=== PATIENT | female | born 1980 | race Caucasian/White ===

== ENCOUNTER 2020-05-09 07:58 | Outpatient (REF) | payer BC, SELFPAY ==
[2020-05-09 09:16] LABS: MANUAL DIFF FLAG NO
[2020-05-09 09:33] LABS: Basophils Absolute Auto 0.1 X10*3/uL (0.0-0.2); Basophils Percent Auto 0.9 % (0-2); Eosinophils Absolute Auto 0.1 X10*3/uL (0.0-0.4); Eosinophils Percent Auto 1.3 % (0-4); Hematocrit 40.1 % (37-47); Hemoglobin 13.6 g/dl (12.0-16.0); Imm Gran Abs Auto 0.01 X10*3/uL (0.00-0.03); Imm Gran Pct Auto 0.2 % (0.0-0.4); Lymphocytes Absolute Auto 3.1 X10*3/uL (1.2-4.9); Lymphocytes Percent Auto 58.2 % (20-40); Mean Corpuscular HGB Conc 33.9 g/dl (31.0-35.0); Mean Corpuscular Volume 91.3 fL (80-98); Mean Platelet Volume 10.5 fL (9.4-12.3); Monocytes Absolute Auto 0.4 X10*3/uL (0.1-1.2); Neutrophils Absolute Auto 1.7 X10*3/uL (2.0-8.3); Neutrophils Percent Auto 32.4 % (45-73); Platelet Count 258 X10*3/uL (160-400); Red Blood Count 4.39 X10*6/uL (4.20-5.50); Red Cell Distribution Width 12.6 % (11.0-16.0); White Blood Count 5.3 X10*3/uL (4.8-10.8)
[2020-05-09 09:35] LABS: Blood Urea Nitrogen 19 mg/dL (9-16); Estimated Glomerular Filt Rate > 60
[2020-05-09 09:44] LABS: Alanine Aminotransferase 72 U/L (0-31); Albumin Level 4.4 g/dL (3.5-5.0); Alkaline Phosphatase 75 U/L (39-117); Anion Gap 12 (12-20); Aspartate Amino Transferase 35 U/L (5-31); Bilirubin Total 0.8 mg/dL (0.0-1.0); Blood Urea Nitrogen 20 mg/dL (9-16); Calcium 9.6 mg/dL (8.4-10.2); Carbon Dioxide 27 mmol/L (22-29); Chloride 105 mmol/L (96-108); Cholesterol 261 mg/dL; Estimated Glomerular Filt Rate > 60; Glucose Fasting 97 mg/dL (60-99); HDL Cholesterol 48 mg/dL; LDL Cholesterol Calculated 177 mg/dl; Potassium 4.9 mmol/l (3.3-5.1); Sodium 139 mmol/L (135-145); Total Protein 7.4 g/dL (6.5-8.0); Triglycerides 184 mg/dL
[2020-05-09 10:05] LABS: Folate 19.1 ng/mL (> or = 4.0); Vitamin B12 530 pg/mL (200-900)
[2020-05-13 13:22] LABS: Vitamin D 25-OH, D2 <4 ng/mL; Vitamin D 25-OH, D3 38 ng/mL; Vitamin D 25-OH, Total 38 ng/mL (30-100)
== END 2020-05-09 07:59 | disposition home or self-care (01) ==
LOC: HO.LAB 07:58
PROVIDERS: Absent Provider Internal Medicine; PCP Internal Medicine; Visit Provider Internal Medicine
DX: R53.82 Chronic fatigue, unspecified (principal); E04.2 Nontoxic multinodular goiter; E78.2 Mixed hyperlipidemia; E55.9 Vitamin D deficiency, unspecified; E28.39 Other primary ovarian failure
CPT/HCPCS: 36415; 80053; 80061; 82306; 82565; 82607; 82746; 84443; 84520; 85025

== ENCOUNTER → 2020-05-16 10:07 | Outpatient (BNVA) | payer BC, SELFPAY | PROVIDERS: Visit Provider Obstetrics & Gynecology | DX: Z76.89 Persons encountering health services in other specified circumstances (principal) ==

== ENCOUNTER → 2020-05-17 08:00 | Outpatient (BNVA) | payer BC, SELFPAY | PROVIDERS: PCP Internal Medicine; Visit Provider Internal Medicine | DX: Z76.89 Persons encountering health services in other specified circumstances (principal) ==

== ENCOUNTER 2020-07-03 08:54 | Outpatient (REF) | payer BC, SELFPAY ==
[2020-07-03 11:25] LABS: Hematocrit 38.4 % (37-47); Hemoglobin 12.9 g/dl (12.0-16.0); Mean Corpuscular HGB Conc 33.6 g/dl (31.0-35.0); Mean Corpuscular Hemoglobin 30.9 pg (27.0-33.0); Mean Corpuscular Volume 92.1 fL (80-98); Mean Platelet Volume 10.3 fL (9.4-12.3); Platelet Count 209 X10*3/uL (160-400); Red Blood Count 4.17 X10*6/uL (4.20-5.50); Red Cell Distribution Width 12.5 % (11.0-16.0); White Blood Count 7.3 X10*3/uL (4.8-10.8)
[2020-07-03 12:20] LABS: Ferritin 89 ng/mL (10-250)
[2020-07-03 12:26] LABS: Alanine Aminotransferase 34 U/L (0-31); Albumin Level 4.5 g/dL (3.5-5.0); Alkaline Phosphatase 78 U/L (39-117); Anion Gap 12 (12-20); Aspartate Amino Transferase 21 U/L (5-31); Bilirubin Total 0.6 mg/dL (0.0-1.0); Blood Urea Nitrogen 12 mg/dL (9-16); Calcium 9.7 mg/dL (8.4-10.2); Carbon Dioxide 29 mmol/L (22-29); Chloride 103 mmol/L (96-108); Estimated Glomerular Filt Rate > 60; Gamma Glutamyl Transpeptidase 25 U/L (7-33); Glucose Random 84 mg/dL (60-115); Iron 75 mcg/dL (30-160); Percent Iron Saturation 23 % (15-50); Potassium 4.8 mmol/l (3.3-5.1); Sodium 139 mmol/L (135-145); Total Iron Binding Capacity 325 mcg/dL (228-428); Total Protein 7.5 g/dL (6.5-8.0); Unsaturated Iron Binding 250 ug/dL
[2020-07-03 13:01] LABS: Erythrocyte Sedimentation Rate 16 MM/HR (0-20)
[2020-07-04 09:49] LABS: HBS Num1 89.82 mIU/mL (0-7.99); HBc Num1 0.07 S/CO (0.00-0.79); HBsAGNum1 0.22 S/CO (0.00-0.99); Hepatitis B Core Antibody Nonreactive (Nonreactive); Hepatitis B Surface Antigen Negative (Negative); ~Hepatitis B Surface Antibody REACTIVE (Nonreactive); ~Hepatitis C Antibody Nonreactive (Nonreactive)
[2020-07-04 12:42] LABS: Mitochondrial Antibodies NEGATIVE (NEGATIVE)
[2020-07-04 13:28] LABS: Anti Nuclear Antibody Screen NEGATIVE (NEGATIVE)
[2020-07-04 22:53] LABS: Transglutaminase IgA 1 U/mL
[2020-07-05 11:53] LABS: Alpha 1 Anti-trypsin 125 mg/dL (83-199); Ceruloplasmin 24 mg/dL (18-53)
[2020-07-07 13:02] LABS: Smooth Muscle Antibody <20 U (<20)
[2020-07-11 20:37] LABS: Aldolase 6.7 U/L (<=8.1)
== END 2020-07-03 08:55 | disposition home or self-care (01) ==
LOC: HO.LAB 08:54
PROVIDERS: Absent Provider Internal Medicine; PCP Internal Medicine; Visit Provider Internal Medicine Gastroenterology
DX: R74.01 Elevation of levels of liver transaminase levels (principal)
CPT/HCPCS: 36415; 80053; 82085; 82103; 82390; 82550; 82728; 82977; 83516; 83540; 85027; 85610; 85652; 86038; 86039; 86140; 86255; 86256; 86704; 86706; 86803; 87340; Q3014

== ENCOUNTER 2020-07-11 09:34 | Outpatient (REF) | payer BC, SELFPAY ==
--- NOTE | 2020-07-11 09:38 | US_ITS ---
EXAMINATION: US ABDOMEN LIMITED WITH LIVER ELASTOGRAPHY CLINICAL INFORMATION: Elevated liver function tests COMPARISON: Previous abdominal ultrasound September 2019 TECHNIQUE: Real-time imaging of the abdominal viscera. Noninvasive ultrasound liver fibrosis assessment is performed using Adriana ElastPQ point quantification shear wave elastography (pSWE) with a 5 MHz transducer. Multiple elastography samples are obtained. FINDINGS: PANCREAS: Normal. LIVER: Liver echotexture is increased. The liver is normal in size and contour. No focal lesion or intrahepatic biliary duct dilatation. The right lobe measures 12 cm in length. The left lobe measures 14 cm in length. The main portal vein is patent with appropriate hepatopedal flow. Shear wave elastography provides a median stiffness of 1.3 m/s (reference: normal median stiffness is 0.81 - 1.22 m/s). The IQR/median stiffness to assess sampling precision is 0.1 (reference: optimal IQR/median stiffness is under 0.3). GALLBLADDER: Normal. The gallbladder is physiologically distended without evidence of stones, sludge, polyps, wall thickening or pericholecystic fluid. COMMON BILE DUCT: Normal in caliber measuring 0.6 cm in diameter. RIGHT KIDNEY: Normal. No hydronephrosis. No renal calculi or focal parenchymal lesions. The kidney measures 8.8 cm in maximum dimension. FREE FLUID: There is trace ascites adjacent to the left lobe of the liver. US/US abdomen roman w elastography IMPRESSION: 1. Impression: Echogenic liver. Trace ascites. 2. Elastography: Metavir score F0 to F1 suggestive of normal to mild increased risk of developing liver fibrosis.
== END 2020-07-11 09:35 | disposition home or self-care (01) ==
LOC: HO.US 09:34
PROVIDERS: PCP Internal Medicine; Visit Provider Internal Medicine Gastroenterology
DX: R74.01 Elevation of levels of liver transaminase levels (principal)
CPT/HCPCS: 76705; 76981

== ENCOUNTER 2020-08-02 13:56 | Outpatient (REF) | payer BC, SELFPAY ==
--- NOTE | ~2020-08-02 | MM_ITS ---
EXAMINATION: BONE DENSITOMETRY CLINICAL INDICATION: Osteopenia. COMPARISON: Baseline BD dated 07/22/2018. TECHNIQUE: Using a [employer] DXA System (software version: 13.1) manufactured by [employer], dual-energy x-ray absorptiometry was performed of the lumbar spine and left hip. The images are of good technical quality. Summary results are attached. FINDINGS: AP SPINE L1-L4: Current: BMD 1.173 g/cm2, Z-score 0.1, T-score -0.1, normal, 3.1% decrease from baseline (<5% change is not significant). Baseline: BMD 1.211 g/cm2. LEFT FEMUR, NECK: Current: BMD 1.020 g/cm2, Z-score 0.5, T-score -0.1, normal. Baseline: BMD 1.074 g/cm2. LEFT FEMUR, TOTAL: Current: BMD 1.075 g/cm2, Z-score 0.9, T-score 0.5, normal, 4.0% decrease from baseline (<5% change is not significant). Baseline: BMD 1.120 g/cm2. IDENTIFIED RISK FACTORS: Early menopause, menopause, secondary osteoporosis. HISTORY OF FRACTURE: None listed. MEDICATIONS: Vitamin D. MM/XR DEXA axial skeleton IMPRESSION: 1. DIAGNOSIS: Normal bone density based on the lowest T-score value of -0.1 in the lumbar spine and femur neck applying World Health Organization criteria. 2. 10-YEAR FRACTURE RISK PREDICTION, FRAX: Major osteoporotic fracture (clinical spine, forearm, hip or shoulder) 1.1%. Hip fracture 0.0%. 3. Treatment Recommendations: NOF guidelines recommend consideration for treatment in postmenopausal women and men age 50 and older presenting with the following: -A hip or vertebral (clinical or morphometric) fracture. -T-score less than or equal to -2.5 at the femoral neck or spine after appropriate evaluation to exclude secondary causes. -Low bone mass at the hip or spine and a 10-year fracture probability by FRAX of greater than or equal to 3% for hip fracture or greater than or equal to 20% for major osteoporotic fracture based on the [place] adapted WHO algorithm. 4. Other Recommendations: All treatment decisions require clinical judgment and consideration of individual patient factors, including patient preferences, comorbidities, previous drug use, risk factors not captured in the FRAX model (e.g. frailty, falls, vitamin D deficiency, increased bone turnover, interval significant decline in bone density) and possible under or overestimation of fracture risk by FRAX. FUTURE SCAN RECOMMENDATION: People with diagnosed cases of osteoporosis or at high risk for fracture should have regular bone mineral density tests. For patients eligible for Medicare, routine testing is allowed once every 2 years. The testing frequency can be increased to one year for patients who have rapidly progressing disease, those who are receiving or discontinuing medical therapy to restore bone mass, or have additional risk factors.
--- NOTE | ~2020-08-02 | MM_ITS ---
EXAMINATION: MM SCREENING DIGITAL BREAST TOMOSYNTHESIS, BILATERAL CLINICAL INFORMATION: Screening. Asymptomatic. The lifetime risk of breast cancer based on the Tyrer-Cuzick Model is 8%. COMPARISON: Mammography: 07/28/2019, 07/22/2018 (baseline). TECHNIQUE: Digital breast tomosynthesis is performed in both the craniocaudal and mediolateral oblique views along with computer-aided detection (CAD). Synthesized 2D images are generated from the tomosynthesis. FINDINGS: There are scattered areas of fibroglandular density (ACR BI-RADS breast composition Category b). There is some fine punctate calcifications anterior periareolar upper outer left breast, possibly vascular. Patient will be recalled for additional magnification views. The remainder of the left breast is unremarkable with no interval mass or architectural abnormality. The right breast has macrolobulated nodule versus grouping of 3 nodules 6:00 retroareolar position 0.7 cm overall size. Patient will be recalled for additional ultrasound characterization. The remainder of the right breast is without significant change. Again, there are scattered punctate benign calcifications. MM/MM tomosynthesis screening BI IMPRESSION: 1. Left: Fine calcifications anterior breast, possibly vascular. 2. Right: Retroareolar nodule vs grouping of 3 small nodules overall under 1 cm. ASSESSMENT: BI-RADS 0: Incomplete - Need Additional Imaging Evaluation RECOMMENDATION: 1. Additional views of the left breast (magnification CC and magnification ML). 2. Targeted right breast ultrasound. 3. Radiology department staff will contact the patient for additional imaging. This patient's information was entered into a reminder system with a target due date for their next mammogram.
== END 2020-08-02 13:57 | disposition home or self-care (01) ==
LOC: HO.MAMMO 13:56
PROVIDERS: PCP Internal Medicine; Visit Provider Internal Medicine
DX: Z13.820 Encounter for screening for osteoporosis (principal); Z78.0 Asymptomatic menopausal state; M89.9 Disorder of bone, unspecified; Z79.899 Other long term (current) drug therapy; Z12.31 Encounter for screening mammogram for malignant neoplasm of breast
CPT/HCPCS: 77063; 77067; 77080

== ENCOUNTER 2020-08-09 14:18 | Outpatient (REF) | payer BC, SELFPAY ==
--- NOTE | ~2020-08-09 | US_ITS ---
EXAMINATION: MM DIAGNOSTIC DIGITAL MAMMOGRAPHY, LEFT US DIAGNOSTIC ULTRASOUND BREAST, RIGHT CLINICAL INFORMATION: Recall from screening for fine calcifications anterior left breast and retroareolar nodule right breast. COMPARISON: Mammography: 08/02/2020, 07/28/2019, 07/22/2018 (baseline). TECHNIQUE: Digital mammography is performed in the following views: Magnification CC, magnification ML. Ultrasound right breast is targeted to the retroareolar region. Grayscale imaging and color Doppler are performed without and with harmonics. FINDINGS: Mammography left: There are scattered areas of fibroglandular density (ACR BI-RADS breast composition Category b). There are punctate uniform round calcifications retroareolar left breast in retrospect likely chronic, similar to prior mammography since 2019. Finding is much better appreciated on current exam using magnification technique. Calcifications are considered probably benign and will be reassessed again in 6 months to include magnification views. Ultrasound right: There is small benign lobulated cyst 6:00 retroareolar right breast under 1 cm measuring approximately 0.6 x 0.5 x 0.4 cm. There is increased through-transmission of sound at real-time scanning and no associated color flow. This corresponds to finding on mammography and considered benign. There is no solid mass or duct ectasia or architectural abnormality. Results are discussed with the patient at time of visit. US/US breast RT limited IMPRESSION: 1. Left: Probable benign punctate calcifications retroareolar breast, in retrospect likely chronic finding. 2. Right: Small benign retroareolar cyst corresponding to finding on mammography. ASSESSMENT: BI-RADS 3: Probably Benign RECOMMENDATION: Diagnostic left mammography in 6 months. This patient's information was entered into a reminder system with a target due date for their next mammogram.
== END 2020-08-09 14:19 | disposition home or self-care (01) ==
LOC: HO.MAMMO 14:18
PROVIDERS: Visit Provider Obstetrics & Gynecology
DX: R92.1 Mammographic calcification found on diagnostic imaging of breast (principal); N63.10 Unspecified lump in the right breast, unspecified quadrant
CPT/HCPCS: 76642; 77065

== ENCOUNTER → 2020-08-15 10:34 | Outpatient (BNVA) | payer BC, SELFPAY | PROVIDERS: PCP Internal Medicine; Visit Provider Advanced Practice Midwife ==

== ENCOUNTER → 2020-09-20 13:19 | Outpatient (BNVA) | payer BC, SELFPAY | PROVIDERS: PCP Internal Medicine; Visit Provider Internal Medicine ==

== ENCOUNTER → 2020-09-21 09:20 | Outpatient (BNVA) | payer BC, SELFPAY | PROVIDERS: PCP Internal Medicine; Visit Provider Internal Medicine Gastroenterology ==

== ENCOUNTER → 2020-10-02 07:49 | Outpatient (BNVA) | payer BC, SELFPAY | PROVIDERS: PCP Internal Medicine; Visit Provider Obstetrics & Gynecology ==

== ENCOUNTER 2020-10-09 09:25 | Outpatient (REF) | payer BC, SELFPAY ==
[2020-10-09 12:09] LABS: Alanine Aminotransferase 37 U/L (0-31); Albumin Level 4.6 g/dL (3.5-5.0); Alkaline Phosphatase 70 U/L (39-117); Anion Gap 13 (12-20); Aspartate Amino Transferase 25 U/L (5-31); Bilirubin Direct 0.2 mg/dL (0.0-0.5); Bilirubin Total 0.8 mg/dL (0.0-1.0); Blood Urea Nitrogen 17 mg/dL (9-16); Calcium 10.2 mg/dL (8.4-10.2); Carbon Dioxide 30 mmol/L (22-29); Chloride 104 mmol/L (96-108); Cholesterol 248 mg/dL; Estimated Glomerular Filt Rate > 60; Glucose Fasting 86 mg/dL (60-99); HDL Cholesterol 47 mg/dL; LDL Cholesterol Calculated 164 mg/dl; Potassium 5.2 mmol/L (3.3-5.1); Sodium 142 mmol/L (135-145); Total Protein 7.4 g/dL (6.5-8.0); Triglycerides 186 mg/dL
[2020-10-09 12:35] LABS: Free T4 (Free Thyroxine) 0.68 ng/dL (0.71-1.85); Thyroid Stimulating Hormone 0.81 uIU/mL (0.32-4.0)
[2020-10-10 05:37] LABS: LDL Cholesterol Direct 151 mg/dL (<100)
[2020-10-19 15:57] LABS: Vitamin D 25-OH, D2 <4 ng/mL; Vitamin D 25-OH, D3 41 ng/mL; Vitamin D 25-OH, Total 41 ng/mL (30-100)
== END 2020-10-09 09:26 | disposition home or self-care (01) ==
LOC: HO.LAB 09:25
PROVIDERS: Internal Medicine; PCP Internal Medicine; Visit Provider Internal Medicine
DX: E78.5 Hyperlipidemia, unspecified (principal); E55.9 Vitamin D deficiency, unspecified; E04.2 Nontoxic multinodular goiter; R74.01 Elevation of levels of liver transaminase levels
CPT/HCPCS: 36415; 80053; 80061; 80076; 82248; 82306; 83721; 84439; 84443

== ENCOUNTER 2020-10-10 11:06 | Outpatient (REF) | payer BC, SELFPAY ==
[2020-10-16 18:06] LABS: N-Telopeptide 57 (see note); NTXCreaRU 160 mg/dL (20-275)
== END 2020-10-10 11:07 | disposition home or self-care (01) ==
LOC: HO.LNP 11:06
PROVIDERS: Visit Provider Internal Medicine
DX: M89.9 Disorder of bone, unspecified (principal); M94.9 Disorder of cartilage, unspecified
CPT/HCPCS: 82523

== ENCOUNTER 2020-10-19 10:44 | Outpatient (REF) | payer BC, SELFPAY ==
[2020-10-19 11:55] LABS: Alanine Aminotransferase 28 U/L (0-31); Albumin Level 4.4 g/dL (3.5-5.0); Alkaline Phosphatase 71 U/L (39-117); Anion Gap 12 (12-20); Aspartate Amino Transferase 24 U/L (5-31); Bilirubin Total 1.1 mg/dL (0.0-1.0); Blood Urea Nitrogen 17 mg/dL (9-16); Calcium 9.9 mg/dL (8.4-10.2); Carbon Dioxide 29 mmol/L (22-29); Chloride 105 mmol/L (96-108); Cholesterol 225 mg/dL; Estimated Glomerular Filt Rate > 60; Glucose Fasting 90 mg/dL (60-99); HDL Cholesterol 47 mg/dL; LDL Cholesterol Calculated 150 mg/dl; Potassium 4.8 mmol/L (3.3-5.1); Sodium 141 mmol/L (135-145); Total Protein 7.4 g/dL (6.5-8.0); Triglycerides 141 mg/dL
[2020-10-20 05:32] LABS: LDL Cholesterol Direct 141 mg/dL (<100)
== END 2020-10-19 10:45 | disposition home or self-care (01) ==
LOC: HO.LAB 10:44
PROVIDERS: PCP Internal Medicine; Visit Provider Internal Medicine
DX: E78.2 Mixed hyperlipidemia (principal); E55.9 Vitamin D deficiency, unspecified; E28.39 Other primary ovarian failure; E78.5 Hyperlipidemia, unspecified
CPT/HCPCS: 36415; 80048; 80053; 80061; 82306; 83721

== ENCOUNTER → 2020-10-22 11:55 | Outpatient (BNVA) | payer BC, SELFPAY | PROVIDERS: PCP Internal Medicine; Visit Provider Internal Medicine ==

== ENCOUNTER → 2020-10-23 16:29 | Outpatient (BNVA) | payer BC, SELFPAY | PROVIDERS: PCP Internal Medicine; Visit Provider Obstetrics & Gynecology ==

== ENCOUNTER 2021-01-17 11:30 | Outpatient (REF) | payer BC, SELFPAY ==
--- NOTE | ~2021-01-17 | US_ITS ---
EXAMINATION: US THYROID CLINICAL INFORMATION: Nontoxic multinodular goiter. COMPARISON: Ultrasound thyroid soft tissue 09/14/2019. TECHNIQUE: Linear transducer [place]-scale and color Doppler examination with attention to the region of the thyroid. FINDINGS: SIZE: Measurements of the thyroid lobes and nodules are given in sagittal, anteroposterior and transverse dimensions respectively. Right Thyroid Lobe: 3.7 x 0.9 x 1.4 cm, volume 2.4 mL. Previously 4.3 x 1.3 x 1.5 cm, volume 4.5 mL. Parenchyma: The gland echotexture is homogeneous. Thyroid vascularity is normal. Left Thyroid Lobe: 4.6 x 1.3 x 1.8 cm, volume 5.6 mL. Previously 5.1 x 1.6 x 2.0 cm, volume 8.3 mL. Parenchyma: The gland echotexture is homogeneous. Thyroid vascularity is normal. Isthmus: 0.2 cm in maximum AP dimension. Previously 0.2 cm. Estimated total number of nodules greater than or equal to 1 cm: 1. 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 Location: Left mid. Size: 3.6 x 1.8 x 1.3 cm, volume 4.3 mL. Previously: 3.5 x 1.5 x 1.6 cm, volume 4.4 mL. Nodule characteristics: Composition: Solid/almost completely solid (2). Echogenicity: Isoechoic (1). Shape: Not taller than wide (0). Margins: Smooth (0). Echogenic Foci: None (0). ACR TI-RADS total points: 3 ACR TI-RADS category: 3 Significant change in size (>/= 20% in 2 dimensions and minimal increase of 2 mm or 50% or greater increase in volume): No Change in features: No Change in ACR TI-RADS risk category: No 2. Location: Right mid. Size: 0.4 x 0.2 x 0.1 cm, volume 0.005 mL. Previously: cm, volume mL. Nodule characteristics: Composition: Solid/almost completely solid (2). Echogenicity: Hyperechoic (1). Shape: Not taller than wide (0). Margins: Smooth (0). Echogenic Foci: None (0). ACR TI-RADS total points: 3 ACR TI-RADS category: 3 NODES: No lymphadenopathy is seen in the tissue surrounding the thyroid gland. US/US thyroid IMPRESSION: Stable left thyroid nodule. Newly appreciated small right thyroid nodule. ACR TI-RADS RECOMMENDATION REFERENCE: Ultrasound-guided fine-needle aspiration, followup ultrasound, no further follow up. * TR1 (0 point) and TR 2 (2 points): No FNA or follow up * TR3 (3 points): FNA if more than or equal to 2.5 cm in maximum dimension, followup ultrasound in 1, 3 and 5 years if 1.5 to 2.4 cm in maximum dimension. * TR4 (4-6 points): FNA if more than or equal to 1.5 cm in maximum dimension, followup ultrasound in 1, 2, 3 and 5 years if 1 to 1.4 cm in maximum dimension. * TR5 (more than or equal to 7 points): FNA if more than or equal to 1 cm in maximum dimension, followup ultrasound every year for 5 years if 0.5 to 0.9 cm in maximum dimension. * TR3, TR4 or TR5 nodules that are below the size threshold for follow up receive no follow up.
== END 2021-01-17 11:31 | disposition home or self-care (01) ==
LOC: HO.US 11:30
PROVIDERS: PCP Internal Medicine; Visit Provider Internal Medicine
DX: E04.1 Nontoxic single thyroid nodule (principal)
CPT/HCPCS: 76536

== ENCOUNTER 2021-02-08 08:48 | Outpatient (REF) | payer BC, SELFPAY ==
--- NOTE | ~2021-02-08 | MM_ITS ---
EXAMINATION: MM DIAGNOSTIC DIGITAL BREAST TOMOSYNTHESIS, LEFT CLINICAL INFORMATION: Six-month follow-up calcifications The lifetime risk of breast cancer based on the Tyrer-Cuzick Model is 8.9%. COMPARISON: Mammography: August 09, 2020 and studies dating back to July 22, 2018 TECHNIQUE: Digital breast tomosynthesis is performed in both the craniocaudal and mediolateral oblique views along with computer-aided detection (CAD). Synthesized 2D images are generated from the tomosynthesis. Spot magnification views in craniocaudal and 90 degree mediolateral views performed. FINDINGS: There are scattered areas of fibroglandular density (ACR BI-RADS breast composition Category b). There is essentially stability of calcifications which are grouped and scattered within the anterior left breast. No new more suspicious grouping of microcalcifications is identified. There is a question or architectural distortion seen about the lateral aspect of the left breast on craniocaudal view however on rayo symphysis views this appears to be related to superimposition of fibroglandular tissue and is stable dating back to July 22, 2018.. Results are provided to the patient at time of visit by the technologist. MM/MM tomosynthesis diagnostic LT IMPRESSION: There are no significant changes from prior study. ASSESSMENT: BI-RADS 3: Probably Benign RECOMMENDATION: Diagnostic mammography in 6 months. Spot magnification views left breast at time of yearly study. This patient's information was entered into a reminder system with a target due date for their next mammogram.
== END 2021-02-08 08:49 | disposition home or self-care (01) ==
LOC: HO.MAMMO 08:48
PROVIDERS: Visit Provider Obstetrics & Gynecology
DX: R92.1 Mammographic calcification found on diagnostic imaging of breast (principal)
CPT/HCPCS: 77061; 77065

== ENCOUNTER 2021-02-20 13:27 | Outpatient (REF) | payer BC, SELFPAY ==
[2021-02-20 14:44] LABS: Alanine Aminotransferase 29 U/L (0-31); Albumin Level 4.3 g/dL (3.5-5.0); Alkaline Phosphatase 57 U/L (39-117); Anion Gap 14 (12-20); Aspartate Amino Transferase 23 U/L (5-31); Bilirubin Total 0.6 mg/dL (0.0-1.0); Blood Urea Nitrogen 19 mg/dL (9-16); Carbon Dioxide 28 mmol/L (22-29); Chloride 105 mmol/L (96-108); Cholesterol 245 mg/dL; Estimated Glomerular Filt Rate > 60; Glucose Random 72 mg/dL (60-115); HDL Cholesterol 46 mg/dL; LDL Cholesterol Calculated 156 mg/dl; Potassium 4.6 mmol/L (3.3-5.1); Sodium 142 mmol/L (135-145); Triglycerides 218 mg/dL
[2021-02-20 15:06] LABS: Vitamin D 25-OH Total 49.3 ng/mL (>30)
[2021-02-21 09:12] LABS: LDL Cholesterol Direct 153 mg/dL (<100)
[2021-02-24 06:31] LABS: Calcium (PTHI) 9.9 mg/dL (8.6-10.2); PTHI 40 pg/mL (14-64)
== END 2021-02-20 13:28 | disposition home or self-care (01) ==
LOC: HO.LAB 13:27
PROVIDERS: Absent Provider Internal Medicine; PCP Internal Medicine; Visit Provider Internal Medicine
DX: E78.2 Mixed hyperlipidemia (principal); E55.9 Vitamin D deficiency, unspecified; E28.39 Other primary ovarian failure
CPT/HCPCS: 36415; 80053; 80061; 82306; 83721; 83970

== ENCOUNTER → 2021-02-21 09:50 | Outpatient (BNVA) | payer BC, SELFPAY | PROVIDERS: PCP Internal Medicine; Visit Provider Obstetrics & Gynecology ==

== ENCOUNTER → 2021-02-25 10:54 | Outpatient (BNVA) | payer BC, SELFPAY | PROVIDERS: PCP Internal Medicine; Visit Provider Internal Medicine ==

== ENCOUNTER 2021-03-11 15:29 | Outpatient (REF) | payer BC, SELFPAY ==
--- NOTE | ~2021-03-11 | US_ITS ---
EXAMINATION: US PELVIS CLINICAL INFORMATION: Postmenopausal bleeding. COMPARISON: Pelvic ultrasound 04/05/2019. TECHNIQUE: Ultrasound of the pelvis is performed using both transabdominal and transvaginal transducers along with Doppler. Transvaginal imaging is performed due to inadequate visualization transabdominally. FINDINGS: UTERUS: The uterus is anteverted, anteflexed and measures 5.2 x 2.5 x 3.9 cm. The double wall endometrial thickness is 0.2 mm. The uterus is smooth in contour and has normal myometrial echogenicity. There is a small fibroid visualized in the upper anterior body of uterus measuring 1.1 x 0.61 x 1.2 cm. Previously it measured 1.1 x 0.83 x 1.5 cm. There is fluid visualized in the cervical canal with small echogenic areas. Question polyp. ADNEXA: Both ovaries are visualized. There is normal color flow to the adnexa. There is no ovarian torsion. There is no pelvic ascites or fluid collection. Right ovary measures 1.0 x 0.8 x 1.4 cm. Volume 0.6 mL. Left ovary measures 1.1 x 0.6 x 1.0 cm. Volume 0.4 mL. US/US pelvic and transvaginal IMPRESSION: Small anterior upper body of uterus fibroid. It is stable. Unremarkable ovaries. Small fluid in the cervix with echogenic areas question calcifications. A polyp cannot be excluded.
== END 2021-03-11 15:30 | disposition home or self-care (01) ==
LOC: HO.US 15:29
PROVIDERS: Visit Provider Obstetrics & Gynecology
DX: N95.0 Postmenopausal bleeding (principal)
CPT/HCPCS: 76830; 76856

== ENCOUNTER → 2021-03-26 08:03 | Outpatient (BNVA) | payer BC, SELFPAY | PROVIDERS: PCP Internal Medicine; Visit Provider Internal Medicine Gastroenterology ==

== ENCOUNTER 2021-05-30 09:39 | Day surgery (SDC) | payer BC, SELFPAY ==
[2021-04-25 14:39] VITALS: BMI 22.6
--- NOTE | 2021-05-29 10:36 | HO.ANESPROP2 ---
Documented by User: Bouchra Gtz NP 05/29/21 10:37 HPI - Anesthesia Eval Consult details Narrative: 40yo F for Colonoscopy PMFSH Active Problems Active Problems: All Active Problems (Updated 05/21/21 @ 13:19 by Mary Manzanares MD) Postmenopausal bleeding (Acute) Mild major depression, single episode (Acute) Premature ovarian failure (Acute) Breast calcifications on mammogram (Acute) Breast nodule (Acute) Disorder of bone and cartilage, unspecified (Acute) Well woman exam (Acute) Chronic fatigue (Acute) Mixed hyperlipidemia (Acute) Multinodular thyroid (Acute) Vitamin D deficiency (Acute) Hyperlipidemia (Acute) Transaminitis (Acute) Past Medical History Medical History (Updated 05/21/21 @ 13:19 by Mary Manzanares MD) Chronic fatigue Depression Disorder of bone and cartilage, unspecified Hyperlipidemia Mild major depression, single episode Mixed hyperlipidemia Multinodular thyroid Premature ovarian failure Transaminitis Vitamin D deficiency Family History Family History Father Arthritis of knee Mother Diabetes Myocardial infarction Cardiovascular disease Maternal Grandmother Diabetes Maternal Uncle Diabetes Brother No problems noted. Brother No problems noted. Surgical History Surgical History Hx of biopsy Social History Social History Household Members: None Housing: House Alcohol intake: current Alcohol intake frequency: does not drink Alcohol type: wine Patient Tobacco Use Status: Never used Tobacco e-Cigarette/Vaping Use: Never Used Second Hand Smoke Exposure: No Use of substances other than those prescribed or required for medical reasons: No Are you DNR?: No Advance Directives Information Provided: Yes (informational brochure mailed) Advance Directives on File: No service: No Current occupational status: employed Current occupational exposures/hazards: No Sexual orientation: Straight/Heterosexual Gender identity: Female Meds Allergies Allergy/AdvReac Type Severity Reaction Status Date / Time Sulfa (Sulfonamide Allergy Intermediate rash Verified 05/21/21 12:27 Antibiotics) Home Medications Medication Instructions Recorded Confirmed Last Taken Type cetirizine 10 mg capsule (Zyrtec) 10 mg PO DAILY PRN 09/20/20 05/21/21 Unknown History calcium carbonate 600 mg calcium 600 mg PO DAILY 01/14/21 05/21/21 Unknown History (1,500 mg) tablet (Calcium) Exam Exam Date and Time: May 29, 2021 1036 Height,Weight and Vital Signs: Height 5 ft 3 in Weight 58.06 kg Pertinent Lab Results Pertinent Lab Results: Laboratory Tests 07/03/20 02/20/21 10:57 13:35 WBC 7.3 Hgb 12.9 Hct 38.4 Plt Count 209 Sodium 142 Potassium 4.6 Chloride 105 Carbon Dioxide 28 BUN 19 H Creatinine 1.00 Assessment and Plan Assessment Anesthesia Assessment: Chart Reviewed Documented by User: Gabriel Santo 05/30/21 10:56 PMF Past Medical History Medical History (Updated 05/21/21 @ 13:19 by Mary Manzanares MD) Chronic fatigue Depression Disorder of bone and cartilage, unspecified Hyperlipidemia Mild major depression, single episode Mixed hyperlipidemia Multinodular thyroid Premature ovarian failure Transaminitis Vitamin D deficiency Functional capacity: independent ambulation Family History Family History Father Arthritis of knee Mother Diabetes Myocardial infarction Cardiovascular disease Maternal Grandmother Diabetes Maternal Uncle Diabetes Brother No problems noted. Brother No problems noted. Family history of problems with anesthesia: No Surgical History Surgical History Hx of biopsy History of Problems with Anesthesia: No Social History Social History Household Members: None Housing: House Alcohol intake: current Alcohol intake frequency: does not drink Alcohol type: wine Patient Tobacco Use Status: Never used Tobacco e-Cigarette/Vaping Use: Never Used Second Hand Smoke Exposure: No Use of substances other than those prescribed or required for medical reasons: No Are you DNR?: No Advance Directives Information Provided: Yes (informational brochure mailed) Advance Directives on File: No service: No Current occupational status: employed Current occupational exposures/hazards: No Sexual orientation: Straight/Heterosexual Gender identity: Female Meds Allergies Allergy/AdvReac Type Severity Reaction Status Date / Time Sulfa (Sulfonamide Allergy Intermediate rash Verified 05/21/21 12:27 Antibiotics) Home Medications Medication Instructions Recorded Confirmed Last Taken Type cetirizine 10 mg capsule (Zyrtec) 10 mg PO DAILY PRN 09/20/20 05/21/21 Unknown History calcium carbonate 600 mg calcium 600 mg PO DAILY 01/14/21 05/21/21 Unknown History (1,500 mg) tablet (Calcium) Exam Airway Mallampati Class: I Neck ROM: Full Loose/Missing/Broken Teeth: Yes Heart: rrr Lungs: bl breath sounds Assessment and Plan Final Anesthetic Review Family History of Problems with Anesthesia: No History of Problems with Anesthesia: No NPO: Yes ASA Class: II Patient Risk: Intermediate Procedure Risk: Intermediate Anesthetic Plan Anesthetic Plan: MAC: Disposition: Standard PACU
[2021-05-30 10:06] VITALS: BMI 22.4
[2021-05-30 10:14] LABS: UPreg QC Valid YES; Urine Pregnancy NEGATIVE (NEGATIVE)
[2021-05-30 10:23] VITALS: BP 131/75; PULSE 60; RESP 16; TEMP 36.6; O2SAT 99
[2021-05-30] MEDS: Lactated Ringers 1,000 ML 100 ML IVCONT (10:24)
--- NOTE | 2021-05-30 10:43 | P.HPSUR_ITS ---
Pre-Procedural Eval Section A Date of Service: 05/30/21 Section B Chief Complaint: Rectal Bleeding Details of Present Illness: LLQ abdominal apain Relevant Family History (Specify if Yes): No Relevant Social History: None Present Medications: see Short Stay Collaborative assessment Medical History: Significant History (Chronic fatigue Depression Disorder of bone and cartilage, unspecified Hyperlipidemia Mild major depression, single episode Mixed hyperlipidemia Multinodular thyroid Premature ovarian failure Transaminitis Vitamin D deficiency) History of Previous Operations: Relevant previous surgery/procedure and date(s) (biopsy) Allergies: Allergies Allergy/AdvReac Type Severity Reaction Status Date / Time Sulfa (Sulfonamide Allergy Intermediate rash Verified 05/21/21 12:27 Antibiotics) Review of Systems Sugical H&P ROS: Negative: Constitution, Cardiovascular, Respiratory, Neurological, Psychiatric, Hem-Onc, Allergic/Immunologic, Gastrointestinal, Genitourinary, Musculoskeletal, Integumentary, Endocrine and Eyes/Ear s/Nose/Throat Exam Surgical H&P Exam: Normal: HEENT, Normal: Heart, Normal: Lungs, Normal: Extremities, Normal: Abdomen, Normal: Skin and Normal: Neurological Plan Diagnosis/Plan: Unchanged I have reviewed the history and physical and performed a pertinent physical examination on my patient. No changes have occurred unless specified.
--- NOTE | 2021-05-30 11:53 | P.BOP_ITS ---
Brief Operative Note Date of Service: 05/30/21 Pre-op diagnosis: LLQ abdo pain and rectal bleeding Post-op diagnosis: same Procedure: see op note Surgeon: Bessy Christiansen MD Anesthesia: MAC Was an Technical Research Scientist used for this Procedure?: No Estimated blood loss (mL): 0 Condition: stable Disposition: PACU
--- NOTE | 2021-05-30 11:54 | P.OP_ITS ---
Operative Note Operative Note Date of Service: 05/30/21 Narrative: Operative Information Procedure Description: Colonoscopy COLONOSCOPY Instrument: Olympus variable stiffness adult scope 190L Colonoscopy Monitoring: Vital signs and clinical assessment, continuous EKG monitoring, Pulse oximetry, Carbon Dioxide monitoring and blood pressure monitoring were done throughout the procedure. Colon withdrawal time was 10 minutes. Procedure: The patient was placed in the left lateral decubitis position and pre-procedure medications were administered. After a digital rectal examination of the ano-rectum, the video colonoscope was inserted into the rectum and advanced through the colon to the cecum/TI. The colonoscope was slowly withdrawn in a retrograde panoramic fashion and the colon mucosa was carefully examined including a retroflexed view of the rectum. Findings and interventions are described below. Procedure Difficulty: easy Findings: Terminal Ileum-normal, bx taken random colon bx taken Cecum:normal Ascending Colon: normal Transverse Colon -normal Descending Colon:normal Sigmoid Colon: normal Rectum: Retroflexion with small internal hemorrhoids, grade I Anorectum - normal There appeared to be reduced movement of the colon. Colon preparation: [place] Bowel Preparation Scale Right colon; 3 Transverse colon: 3 Left colon; 3 (0 = Unprepared colon segment with mucosa not seen due to solid stool that cannot be cleared. 1 = Portion of mucosa of the colon segment seen, but other areas of the colon segment not well seen due to staining, residual stool and/or opaque liquid. 2 = Minor amount of residual staining, small fragments of stool and/or opaque liquid, but mucosa of colon segment seen well. 3 = Entire mucosa of colon segment seen well with no residual staining, small fragments of stool or opaque liquid) Impression and Post Procedure Diagnosis: internal hemorrhoids Plan: High fiber diet leaflet Avoid straining at stool, epsom salts and sitz bath, anusol supps or cream Repeat Colonoscopy in 10 years or earlier if clinically indicated Above findings were reviewed with the patient and relevant handouts were provided if indicated.
[2021-05-30 12:23] VITALS: BP 113/62; PULSE 86; RESP 20; TEMP 36.1; O2SAT 98
[2021-05-30 12:38] VITALS: BP 128/73; PULSE 72; RESP 16; TEMP 36.1; O2SAT 98
== END 2021-05-30 13:21 | disposition home or self-care (01) ==
PROVIDERS: Nurse Practitioner; PCP Internal Medicine; Visit Provider Internal Medicine Gastroenterology
PROC: 0DJD8ZZ Inspection of Lower Intestinal Tract, Via Natural or Artificial Opening Endoscopic (ICD-10-PCS; CPT 45378; principal; 2021-05-30 11:30)
DX: K62.5 Hemorrhage of anus and rectum (principal); K64.0 First degree hemorrhoids; R53.82 Chronic fatigue, unspecified; E04.2 Nontoxic multinodular goiter; E55.9 Vitamin D deficiency, unspecified; R74.01 Elevation of levels of liver transaminase levels; Z88.2 Allergy status to sulfonamides; Z79.899 Other long term (current) drug therapy
CPT/HCPCS: 45380; 81025; 88305

== ENCOUNTER 2021-06-04 09:11 | Outpatient (REF) | payer BC, SELFPAY ==
[2021-06-04 13:33] LABS: Albumin Level 4.6 g/dL (3.5-5.0); Cholesterol 178 mg/dL; HDL Cholesterol 49 mg/dL; LDL Cholesterol Calculated 100 mg/dl; Triglycerides 145 mg/dL
[2021-06-04 13:45] LABS: Free T4 (Free Thyroxine) 0.83 ng/dL (0.71-1.85); Thyroid Stimulating Hormone 0.77 uIU/mL (0.32-4.0); Vitamin D 25-OH Total 45.8 ng/mL (>30)
[2021-06-04 13:53] LABS: Calcium 10.6 mg/dL (8.4-10.2)
[2021-06-06 09:11] LABS: Follicle Stimulating Hormone 161.6 mIU/mL; Lutenizing Hormone 69.3 mIU/mL
[2021-06-06 10:30] LABS: LDL Cholesterol Direct 89 mg/dL (<100)
[2021-06-08 01:36] LABS: Estradiol Ultra Sensitive 3 pg/mL
[2021-06-14 21:23] LABS: Estradiol Free 0.07 pg/mL; Estradiol, Ultrasensitive 4 pg/mL
== END 2021-06-04 09:12 | disposition home or self-care (01) ==
LOC: HO.LAB 09:11
PROVIDERS: Absent Provider Internal Medicine; PCP Internal Medicine; Referring Provider Internal Medicine; Visit Provider Internal Medicine Gastroenterology
DX: R74.01 Elevation of levels of liver transaminase levels (principal); K64.9 Unspecified hemorrhoids; E78.5 Hyperlipidemia, unspecified; E04.2 Nontoxic multinodular goiter; E55.9 Vitamin D deficiency, unspecified; E28.39 Other primary ovarian failure
CPT/HCPCS: 36415; 80061; 82040; 82306; 82310; 82670; 82681; 83001; 83002; 83721; 84439; 84443

== ENCOUNTER → 2021-07-01 07:46 | Outpatient (BNVA) | payer BC, SELFPAY | PROVIDERS: PCP Internal Medicine; Visit Provider Internal Medicine ==

== ENCOUNTER 2021-07-23 08:21 | Outpatient (REF) | payer BC, SELFPAY ==
[2021-07-23 09:24] LABS: Alanine Aminotransferase 30 U/L (0-31); Albumin Level 4.5 g/dL (3.5-5.0); Alkaline Phosphatase 66 U/L (39-117); Anion Gap 11 (12-20); Aspartate Amino Transferase 21 U/L (5-31); Blood Urea Nitrogen 18 mg/dL (9-16); Calcium 10.4 mg/dL (8.4-10.2); Carbon Dioxide 29 mmol/L (22-29); Chloride 106 mmol/L (96-108); Estimated Glomerular Filt Rate > 60; Glucose Random 94 mg/dL (60-115); Phosphorus 3.6 mg/dL (2.7-4.5); Potassium 4.8 mmol/L (3.3-5.1); Sodium 141 mmol/L (135-145); Total Protein 7.6 g/dL (6.5-8.0)
[2021-07-24 17:21] LABS: Calcium (PTHI) 10.5 mg/dL (8.6-10.2); PTHI 46 pg/mL (14-64)
== END 2021-07-23 08:22 | disposition home or self-care (01) ==
LOC: HO.LAB 08:21
PROVIDERS: PCP Internal Medicine; Visit Provider Internal Medicine
DX: E55.9 Vitamin D deficiency, unspecified (principal)
CPT/HCPCS: 36415; 80053; 82306; 83970; 84100

== ENCOUNTER 2021-08-13 09:23 | Outpatient (REF) | payer BC, SELFPAY ==
--- NOTE | ~2021-08-13 | MM_ITS ---
EXAMINATION: MM DIAGNOSTIC DIGITAL BREAST TOMOSYNTHESIS, BILATERAL CLINICAL INFORMATION: Due for yearly. Also follow-up probable benign calcifications anterior left breast. The lifetime risk of breast cancer based on the Tyrer-Cuzick Model is 02/08/2021, 08/09/2020, 08/02/2020 (500, 07/28/2019; () 08/09/2020%. COMPARISON: Mammography: 02/08/2021, 08/09/2020, 08/02/2020 (BI-RADS 0), 07/28/2019; ultrasound right breast 08/09/2020. TECHNIQUE: Digital breast tomosynthesis is performed in both the craniocaudal and mediolateral oblique views along with computer-aided detection (CAD). Synthesized 2D images are generated from the tomosynthesis. Additional magnification left CC and magnification left ML views are obtained. FINDINGS: There are scattered areas of fibroglandular density (ACR BI-RADS breast composition Category b). Parenchymal pattern is similar to prior studies. There is no developing density or interval mass or architectural abnormality. The axilla and skin contours are unremarkable. No abnormal calcifications on the right. Left breast calcifications for follow-up, punctate uniform and round, are similar to prior diagnostic exams. They will be reassessed again at next bilateral annual mammography to conclude long-term surveillance. Results are provided to the patient at time of visit by the technologist. MM/MM tomosynthesis diagnostic BI IMPRESSION: -There are no significant changes from prior exams. -Probable benign punctate uniform round anterior left breast calcifications, stable. ASSESSMENT: BI-RADS 3: Probably Benign RECOMMENDATION: Diagnostic mammography at time of next annual exam, due in 12 months. This patient's information was entered into a reminder system with a target due date for their next mammogram.
== END 2021-08-13 09:24 | disposition home or self-care (01) ==
LOC: HO.MAMMO 09:23
PROVIDERS: PCP Internal Medicine; Visit Provider Internal Medicine
DX: R92.1 Mammographic calcification found on diagnostic imaging of breast (principal)
CPT/HCPCS: 77062; 77066

== ENCOUNTER 2021-08-14 09:00 | Outpatient (REF) | payer BC, SELFPAY ==
--- NOTE | ~2021-08-14 | US_ITS ---
EXAMINATION: US ABDOMEN LIMITED WITH LIVER ELASTOGRAPHY CLINICAL INFORMATION: Elevation of liver transaminase levels. COMPARISON: None. TECHNIQUE: Real-time imaging of the abdominal viscera. Noninvasive ultrasound liver fibrosis assessment is performed using Adriana ElastPQ point quantification shear wave elastography (2D-SWE) with a C5-2 MHz transducer. Multiple elastography samples are obtained. FINDINGS: PANCREAS: Normal. The visualized pancreatic head and body are normal in appearance. The remainder of the pancreas is obscured from visualization by the overlying bowel gas. LIVER: Normal. The liver demonstrates normal size, contour and echogenicity. No focal lesion or intrahepatic biliary duct dilatation. The right lobe measures 15.2 cm in length. The left lobe measures 11.2 cm in length. Portal flow is hepatopedal. Shear wave liver elastography median stiffness is 1.21 m/s (reference: normal median stiffness is 1.3 m/s or less). IQR/median stiffness to assess sampling precision is 0.08 (reference: good quality data set is IQR/median stiffness of 0.15 or less). GALLBLADDER: Normal. The gallbladder is physiologically distended without evidence of stones, sludge, polyps, wall thickening or pericholecystic fluid. COMMON BILE DUCT: Normal in caliber measuring 0.59 cm in diameter. RIGHT KIDNEY: Normal. No hydronephrosis. No renal calculi or focal parenchymal lesions. The kidney measures 8.7 cm in maximum dimension. FREE FLUID: None. US/US abdomen roman w elastography IMPRESSION: 1. Unremarkable right upper quadrant ultrasound exam. Especially the liver appears unremarkable. 2. Liver elastography: Median liver stiffness 1.21 m/s suggestive of high probability normal. REFERENCE: Society of Radiologists in Ultrasound Liver Stiffness Thresholds (2020): LIVER STIFFNESS THRESHOLDS: *Liver Stiffness equal or less than 1.3 m/s: High probability of being normal. *Liver Stiffness less than 1.7 m/s: In the absence of other known clinical signs, rules out compensated advanced chronic liver disease. *Liver Stiffness 1.7-2.1 m/s: Suggestive of compensated advanced chronic liver disease but need further test for confirmation. *Liver Stiffness over 2.1 m/s: Rules in compensated advanced chronic liver disease. *Liver Stiffness over 2.4 m/s: Suggestive of clinically significant portal hypertension. QUALITY OF DATA SET: *IQR/Median value equal or less than 0.15 implies a quality data set. *IQR/Median value over 0.15 implies a poor quality data set. SIGNIFICANT CHANGE FROM PRIOR EXAM: Significant change if liver stiffness measurement is 10% or greater from prior exam. OTHER CONSIDERATIONS: The stage of liver fibrosis may be overestimated in the setting of acute hepatitis, liver inflammation, elevated liver function tests, hepatic vascular congestion, obstructive cholestasis, non-fasting state, and infiltrative diseases such as amyloidosis and lymphoma. In some patients with NAFLD, the liver stiffness thresholds for compensated advanced chronic liver disease may be lower. In causes other than viral hepatitis and NAFLD, liver stiffness thresholds are not well established.
== END 2021-08-14 09:01 | disposition home or self-care (01) ==
LOC: HO.US 09:00
PROVIDERS: Visit Provider Internal Medicine Gastroenterology
DX: R74.01 Elevation of levels of liver transaminase levels (principal)
CPT/HCPCS: 76705; 76981

== ENCOUNTER → 2021-08-19 08:10 | Outpatient (BNVA) | payer BC, SELFPAY | PROVIDERS: Visit Provider Advanced Practice Midwife ==

== ENCOUNTER 2021-08-26 08:39 | Outpatient (REF) | payer BC, SELFPAY ==
[2021-08-26 09:16] LABS: Total Volume 24 Hour Urine 750 mL
[2021-08-26 09:28] LABS: Creatinine, 24Hr Urine 0.7 G/Day (1.0-2.0); Creatinine, mg/dL 99.04
[2021-08-28 16:41] LABS: Calcium, 24 Hr Urine 42 mg/24 h; Calcium/Creatinine Ratio 57 mg/g creat (30-275); Creatinine 24Hr Urine 0.74 g/24 h (0.50-2.15)
== END 2021-08-26 08:40 | disposition home or self-care (01) ==
LOC: HO.LNP 08:39
PROVIDERS: Visit Provider Internal Medicine
DX: E55.9 Vitamin D deficiency, unspecified (principal)
CPT/HCPCS: 82340; 82570

== ENCOUNTER 2021-09-04 13:12 | Outpatient (REF) | payer BC, SELFPAY ==
[2021-09-04 15:42] LABS: Alanine Aminotransferase 67 U/L (0-31); Albumin Level 4.5 g/dL (3.5-5.0); Alkaline Phosphatase 67 U/L (39-117); Anion Gap 12 (12-20); Aspartate Amino Transferase 34 U/L (5-31); Blood Urea Nitrogen 21 mg/dL (9-16); Calcium 10.2 mg/dL (8.4-10.2); Carbon Dioxide 30 mmol/L (22-29); Chloride 103 mmol/L (96-108); Cholesterol 193 mg/dL; Estimated Glomerular Filt Rate > 60; Glucose Random 105 mg/dL (60-115); HDL Cholesterol 50 mg/dL; LDL Cholesterol Calculated 83 mg/dl; Phosphorus 3.7 mg/dL (2.7-4.5); Potassium 4.6 mmol/L (3.3-5.1); Sodium 140 mmol/L (135-145); Total Protein 7.5 g/dL (6.5-8.0); Triglycerides 304 mg/dL
[2021-09-04 16:13] LABS: Free T4 (Free Thyroxine) 0.83 ng/dL (0.71-1.85)
[2021-09-05 14:49] LABS: Vitamin D 25-OH Total 41.2 ng/mL (>30)
[2021-09-05 16:26] LABS: PTHI 49 pg/mL (16-77)
[2021-09-06 03:31] LABS: LDL Cholesterol Direct 95 mg/dL (<100)
[2021-09-06 13:22] LABS: Prot Elec - Albumin 4.3 g/dL (3.8-4.8); Prot Elec - Alpha1 0.3 g/dL (0.2-0.3); Prot Elec - Alpha2 0.7 g/dL (0.5-0.9); Prot Elec - Beta 1 0.4 g/dL (0.4-0.6); Prot Elec - Beta 2 0.4 g/dL (0.2-0.5); Prot Elec - Total Protein 7.1 g/dL (6.1-8.1)
== END 2021-09-04 13:13 | disposition home or self-care (01) ==
LOC: HO.LAB 13:12
PROVIDERS: PCP Internal Medicine; Visit Provider Internal Medicine
DX: E28.39 Other primary ovarian failure (principal); E04.2 Nontoxic multinodular goiter; E55.9 Vitamin D deficiency, unspecified; E78.5 Hyperlipidemia, unspecified; E21.3 Hyperparathyroidism, unspecified; R92.8 Other abnormal and inconclusive findings on diagnostic imaging of breast
CPT/HCPCS: 36415; 80053; 80061; 82306; 83721; 83970; 84100; 84165; 84439; 84443

== ENCOUNTER 2021-09-06 10:26 | Outpatient (REF) | payer BC, SELFPAY ==
[2021-09-06 11:03] LABS: Total Volume 24 Hour Urine 2325 mL
[2021-09-06 11:51] LABS: Creatinine, 24Hr Urine 0.9 G/Day (1.0-2.0); Creatinine, mg/dL 40.49
[2021-09-07 17:42] LABS: Calcium, 24 Hr Urine 53 mg/24 h; Calcium/Creatinine Ratio 55 mg/g creat (30-275); Creatinine 24Hr Urine 0.98 g/24 h (0.50-2.15)
== END 2021-09-06 10:27 | disposition home or self-care (01) ==
LOC: HO.LNP 10:26
PROVIDERS: Visit Provider Internal Medicine
DX: E21.3 Hyperparathyroidism, unspecified (principal)
CPT/HCPCS: 82340; 82570

== ENCOUNTER 2021-09-06 10:27 | Outpatient (REF) | payer BC, SELFPAY ==
[2021-09-06 11:05] LABS: MANUAL DIFF FLAG NO
[2021-09-06 11:33] LABS: Basophils Absolute Auto 0.1 X10*3/uL (0.0-0.2); Basophils Percent Auto 0.9 % (0-2); Eosinophils Absolute Auto 0.1 X10*3/uL (0.0-0.4); Eosinophils Percent Auto 2.2 % (0-4); Hematocrit 40.1 % (37.0-47.0); Hemoglobin 13.1 g/dl (12.0-16.0); Imm Gran Abs Auto 0.01 X10*3/uL (0.00-0.03); Imm Gran Pct Auto 0.2 % (0.0-0.4); Lymphocytes Absolute Auto 2.8 X10*3/uL (1.2-4.9); Lymphocytes Percent Auto 48.5 % (20-40); Mean Corpuscular HGB Conc 32.7 g/dl (31.0-35.0); Mean Corpuscular Hemoglobin 30.3 pg (27.0-33.0); Mean Corpuscular Volume 92.8 fL (80.0-98.0); Mean Platelet Volume 10.4 fL (9.4-12.3); Monocytes Absolute Auto 0.5 X10*3/uL (0.1-1.2); Neutrophils Absolute Auto 2.4 x10*3/uL (2.0-8.3); Neutrophils Percent Auto 40.2 % (45-73); Platelet Count 218 X10*3/uL (160-400); Red Blood Count 4.32 X10*6/uL (4.20-5.50); Red Cell Distribution Width 12.2 % (11.0-16.0); White Blood Count 5.8 X10*3/uL (4.8-10.8)
[2021-09-06 12:37] LABS: Alanine Aminotransferase 56 U/L (0-31); Albumin Level 4.6 g/dL (3.5-5.0); Alkaline Phosphatase 62 U/L (39-117); Anion Gap 13 (12-20); Aspartate Amino Transferase 28 U/L (5-31); Bilirubin Direct 0.3 mg/dL (0.0-0.5); Bilirubin Total 1.1 mg/dL (0.0-1.0); Blood Urea Nitrogen 20 mg/dL (9-16); Calcium 10.6 mg/dL (8.4-10.2); Carbon Dioxide 29 mmol/L (22-29); Chloride 105 mmol/L (96-108); Estimated Glomerular Filt Rate > 60; Glucose Random 93 mg/dL (60-115); Potassium 5.4 mmol/L (3.3-5.1); Sodium 142 mmol/L (135-145); Total Protein 7.6 g/dL (6.5-8.0)
== END 2021-09-06 10:28 | disposition home or self-care (01) ==
LOC: HO.LAB 10:27
PROVIDERS: Internal Medicine Gastroenterology; PCP Internal Medicine; Visit Provider Internal Medicine
DX: R74.01 Elevation of levels of liver transaminase levels (principal); E28.39 Other primary ovarian failure; K75.81 Nonalcoholic steatohepatitis (NASH)
CPT/HCPCS: 36415; 80053; 82248; 85025

== ENCOUNTER 2021-09-20 15:31 | Outpatient (REF) | payer BC, SELFPAY ==
--- NOTE | ~2021-09-20 | US_ITS ---
EXAMINATION: US PELVIS CLINICAL INFORMATION: Intra-abdominal and pelvic swelling. Mass. COMPARISON: Ultrasound 03/11/2021. TECHNIQUE: Ultrasound of the pelvis is performed using both transabdominal and transvaginal transducers along with Doppler. Transvaginal imaging is performed due to inadequate visualization transabdominally. FINDINGS: Uterus: The uterus is anteverted, anteflexed and measures 5.7 x 2.1 x 3.5 cm The double wall endometrial thickness is 0.2 mm. The uterus is smooth in contour and has normal myometrial echogenicity. There is a hyperechoic lesion in the anterior upper body of the uterus measuring 0.6 x 0.5 x 0.7 cm. Previously it measured 1.1 x 0.6 x 1.2 cm. There is a small slightly hyperechoic cervical polyp measuring 0.47 x 0.28 x 0.37 cm. Adnexa: Both ovaries are visualized. There is normal color flow to the adnexa. There is no ovarian torsion. There is no pelvic ascites or fluid collection. Right ovary measures 1.1 x 0.9 x 0.9 cm and volume 0.47 mL. No focal lesion seen. Left ovary measures 1.4 x 1.2 x 1.0 cm and volume 0.88 mL no focal lesion seen. There is a small hypoechoic polyp measuring 0.47 x 0.28 x 0.37 cm. US/US pelvic and transvaginal IMPRESSION: Small uterine fibroid. It has decreased in size from previous study. No change in the cervical polyp. Unremarkable ovaries.
== END 2021-09-20 15:32 | disposition home or self-care (01) ==
LOC: HO.US 15:31
PROVIDERS: PCP Internal Medicine; Visit Provider Advanced Practice Midwife
DX: R19.00 Intra-abdominal and pelvic swelling, mass and lump, unspecified site (principal)
CPT/HCPCS: 76830; 76856

== ENCOUNTER → 2021-10-04 12:45 | Outpatient (BNVA) | payer BC, SELFPAY | PROVIDERS: PCP Internal Medicine; Visit Provider Advanced Practice Midwife | DX: Z13.89 Encounter for screening for other disorder (principal) ==

== ENCOUNTER → 2021-10-31 15:02 | Outpatient (BNVA) | payer BC, SELFPAY | PROVIDERS: PCP Internal Medicine; Visit Provider Obstetrics & Gynecology | DX: N84.1 Polyp of cervix uteri (principal) ==

== ENCOUNTER → 2021-11-04 09:57 | Outpatient (BNVA) | payer BC, SELFPAY | PROVIDERS: PCP Internal Medicine; Visit Provider Internal Medicine | DX: E55.9 Vitamin D deficiency, unspecified (principal) ==

== ENCOUNTER 2021-11-08 08:00 | Day surgery (SDC) | payer BC, SELFPAY ==
--- NOTE | 2021-11-07 08:26 | P.CONAN_ITS ---
Documented by User: Bouchra Gtz NP 11/07/21 08:28 HPI - Anesthesia Eval Consult details Narrative: 41yo F for D&C Diagnostic Hysteroscopy polypectomy/myomectomy PMFSH Active Problems Active Problems: All Active Problems (Updated 10/31/21 @ 15:45 by Arun Mendoza MD) Endocervical polyp (Acute) Hypercalcemia (Acute) Hyperkalemia (Acute) At risk for breast cancer (Acute) Abnormal mammogram (Acute) Hyperparathyroidism (Acute) Hemorrhoids (Acute) Postmenopausal bleeding (Acute) Mild major depression, single episode (Acute) Premature ovarian failure (Acute) Breast calcifications on mammogram (Acute) Breast nodule (Acute) Disorder of bone and cartilage, unspecified (Acute) Well woman exam (Acute) Chronic fatigue (Acute) Mixed hyperlipidemia (Acute) Multinodular thyroid (Acute) Vitamin D deficiency (Acute) Hyperlipidemia (Acute) Transaminitis (Acute) Past Medical History Medical History Abnormal mammogram Chronic fatigue Depression Disorder of bone and cartilage, unspecified Hypercalcemia Hyperkalemia Hyperlipidemia Hyperparathyroidism Mild major depression, single episode Mixed hyperlipidemia Multinodular thyroid Premature ovarian failure Transaminitis Vitamin D deficiency Family History Family History Father Arthritis of knee Mother Diabetes Myocardial infarction Cardiovascular disease Maternal Grandmother Diabetes Maternal Uncle Diabetes Brother No problems noted. Brother No problems noted. Family history of problems with anesthesia: No Surgical History Surgical History Hx of biopsy Hx of colonoscopy History of Problems with Anesthesia: No Social History Social History Household Members: Family Housing: House Are you a primary health care / medical job titles to a significant other at home: No Do you presently have visiting nurse or other home services: No Alcohol intake: current Alcohol intake frequency: does not drink Alcohol type: wine Patient Tobacco Use Status: Never used Tobacco e-Cigarette/Vaping Use: Never Used Second Hand Smoke Exposure: No Use of substances other than those prescribed or required for medical reasons: No Are you DNR?: No Advance Directives: No Advance Directives Information Provided: Yes service: No Current occupational status: employed Current occupational exposures/hazards: No Sexual orientation: Straight/Heterosexual Gender identity: Female Cognitive needs: No Hearing needs: No Vision needs: No Meds Allergies Allergy/AdvReac Type Severity Reaction Status Date / Time Sulfa (Sulfonamide Allergy Intermediate rash Verified 11/04/21 12:35 Antibiotics) Home Medications Medication Instructions Recorded Confirmed Last Taken Type cetirizine 10 mg capsule (Zyrtec) 10 mg PO DAILY PRN 09/20/20 11/04/21 Unknown History Exam Exam Date and Time: November 07, [id number] Pertinent Lab Results Pertinent Lab Results: Laboratory Tests 09/06/21 09/06/21 11:04 11:04 WBC 5.8 Hgb 13.1 Hct 40.1 Plt Count 218 Carbon Dioxide 29 BUN 20 H Creatinine 0.97 Assessment and Plan Assessment Anesthesia Assessment: Chart Reviewed Final Anesthetic Review Family History of Problems with Anesthesia: No History of Problems with Anesthesia: No Documented by User: Sangita Mojica MD 11/08/21 10:24 [facility] Past Medical History Medical History Abnormal mammogram Chronic fatigue Depression Disorder of bone and cartilage, unspecified Hypercalcemia Hyperkalemia Hyperlipidemia Hyperparathyroidism Mild major depression, single episode Mixed hyperlipidemia Multinodular thyroid Premature ovarian failure Transaminitis Vitamin D deficiency Family History Family History Father Arthritis of knee Mother Diabetes Myocardial infarction Cardiovascular disease Maternal Grandmother Diabetes Maternal Uncle Diabetes Brother No problems noted. Brother No problems noted. Surgical History Surgical History Hx of biopsy Hx of colonoscopy Social History Social History Household Members: Family Housing: House Are you a primary health care / medical job titles to a significant other at home: No Do you presently have visiting nurse or other home services: No Alcohol intake: current Alcohol intake frequency: does not drink Alcohol type: wine Patient Tobacco Use Status: Never used Tobacco e-Cigarette/Vaping Use: Never Used Second Hand Smoke Exposure: No Use of substances other than those prescribed or required for medical reasons: No Are you DNR?: No Advance Directives: No Advance Directives Information Provided: Yes service: No Current occupational status: employed Current occupational exposures/hazards: No Sexual orientation: Straight/Heterosexual Gender identity: Female Cognitive needs: No Hearing needs: No Vision needs: No Meds Allergies Allergy/AdvReac Type Severity Reaction Status Date / Time Sulfa (Sulfonamide Allergy Intermediate rash Verified 11/04/21 12:35 Antibiotics) Home Medications Medication Instructions Recorded Confirmed Last Taken Type cetirizine 10 mg capsule (Zyrtec) 10 mg PO DAILY PRN 09/20/20 11/04/21 Unknown History Exam Height,Weight and Vital Signs: Height 5 ft 3 in Weight 58.513 kg Vital Signs Temp Pulse Resp BP Pulse Ox 11/08/21 08:52 97.5 F 63 16 127/84 96 Pertinent Lab Results Pertinent Lab Results: Laboratory Tests 09/06/21 09/06/21 11:04 11:04 WBC 5.8 Hgb 13.1 Hct 40.1 Plt Count 218 Carbon Dioxide 29 BUN 20 H Creatinine 0.97 Lab Results 11/08/21 11/08/21 Range/Units 08:30 08:40 Sodium 142 (135-145) mmol/L Potassium 4.8 (3.3-5.1) mmol/L Chloride 106 (96-108) mmol/L Carbon Dioxide 30 H (22-29) mmol/L Anion Gap 11 L (12-20) Urine Test NEGATIVE (NEGATIVE) Airway Mallampati Class: I TM Dist: >3cm Neck ROM: Full Loose/Missing/Broken Teeth: No Heart: RRR Lungs: CTAB Assessment and Plan Assessment Anesthesia Assessment: Anesthesia Plan Discussed Final Anesthetic Review NPO: Yes ASA Class: II Final Preanesthetic Review: No Changes in Pt Med Stat, Meds/Allgs Chart Reviewed, Consent Obtained/Reviewed and Anes Risks/Benef Reviewed Patient Risk: Low Procedure Risk: Low Assessment/Block/Sedation in SS: Assess/Block/Sedation-SS Anesthetic Plan Anesthetic Plan: GA Disposition: Standard PACU
[2021-11-08] VITALS (8 sets, daily range): BP systolic 117–145; BP diastolic 74–96; PULSE 63–90; RESP 10–16; TEMP 36.1–36.6; O2SAT 96–100; BMI 22.8
--- NOTE | 2021-11-08 08:52 | MHC.SHP ---
Pre-Procedural Eval Section A Date of Service: 11/08/21 Section B Chief Complaint: Polyp of cervix uteri Allergies: Allergies Allergy/AdvReac Type Severity Reaction Status Date / Time Sulfa (Sulfonamide Allergy Intermediate rash Verified 11/04/21 12:35 Antibiotics) Plan I have reviewed the history and physical and performed a pertinent physical examination on my patient. No changes have occurred unless specified.
[2021-11-08 08:58] LABS: UPreg QC Valid YES; Urine Pregnancy NEGATIVE (NEGATIVE)
[2021-11-08 09:02] LABS: Anion Gap 11 (12-20); Carbon Dioxide 30 mmol/L (22-29); Chloride 106 mmol/L (96-108); Potassium 4.8 mmol/L (3.3-5.1); Sodium 142 mmol/L (135-145)
[2021-11-08] MEDS: Lactated Ringers 1,000 ML 50 ML IVCONT (09:05)
--- NOTE | 2021-11-08 10:47 | PM.OP ---
Brief Operative Note Date of Service: 11/08/21 Pre-op diagnosis: Postmenopausal bleeding, endocervical polyp Post-op diagnosis: same (Endocervical polyp) Procedure: Hysteroscopy D&C, Polypectomy Surgeon: Arun Mendoza MD Anesthesia: MAC Was an Deployment Technician used for this Procedure?: No Estimated blood loss (mL): 0 Pathology: other (Endometrial Scrapping. Polyp) Condition: stable Disposition: PACU
--- NOTE | 2021-11-08 10:49 | W.PM.OPN ---
Operative Note Operative Note Date of Service: 11/08/21 Narrative: Preop Diagnosis: Postmenopausal bleeding and endocervical polyp by US Operation: Diagnostic Hysteroscopy, Dilataion & Curettage and polypectomy Post Op Diagnosis: Endocervical Polyp, normal uterine cavity QBL: Minimal Anesthesia: MAC Surgeon: Arun Mendoza MD [employer] Console Operator Track: None Complication: None Pathology: Endometrial Scrapings, Endometrial polyp Procedure: The patient was put in the dorsal lithotomy position, scrubbed, and draped in the usual manner. A sterile speculum was inserted in the patient's vagina. The anterior lip of the cervix was grasped with a single tooth tenaculum. The cervix was dilated up to 5 mm, then the scope was inserted in the patient's uterus. Inspection revealed endocervical polyp. The Myosure Reach device was used; it was introduced through the operative channel and polypectomy done with no complications. Then sharp curettings was carried on with moderate amount of tissues retrieved. At the end of the procedure, all instruments were taken out of the patient uterine and vaginal cavity. The single tooth tenaculum was removed and homeostasis was assured using pressure,. The patient tolerated the procedure well and was transferred to the PACU in a stable condition.
[2021-11-08] MEDS: Ketorolac Tromethamine 30 MG/ML VIAL 15 MG IVPUSH (11:31)
[2021-11-08] MEDS: Acetaminophen 325 MG TABLET 650 MG PO (11:32)
[2021-11-08] MEDS: oxyCODONE HCl Immed Release 5 MG TABLET PO (11:32)
== END 2021-11-08 12:23 | disposition home or self-care (01) ==
PROVIDERS: Nurse Practitioner; PCP Internal Medicine; Visit Provider Obstetrics & Gynecology
PROC: 0UDB8ZZ Extraction of Endometrium, Via Natural or Artificial Opening Endoscopic (ICD-10-PCS; CPT 58558; principal; 2021-11-08 10:30)
DX: N84.1 Polyp of cervix uteri (principal); R53.82 Chronic fatigue, unspecified; E28.39 Other primary ovarian failure; F32.0 Major depressive disorder, single episode, mild; E78.5 Hyperlipidemia, unspecified; E21.3 Hyperparathyroidism, unspecified; E55.9 Vitamin D deficiency, unspecified; E04.2 Nontoxic multinodular goiter; R74.01 Elevation of levels of liver transaminase levels; Z88.2 Allergy status to sulfonamides
CPT/HCPCS: 58558; 36415; 80051; 81025; 88305; J1100; J1885; J2250; J2405; J3010

== ENCOUNTER 2022-03-12 14:18 | Outpatient (REF) | payer BC, SELFPAY ==
--- NOTE | ~2022-03-12 | US_ITS ---
EXAMINATION: US THYROID CLINICAL INFORMATION: Nontoxic multinodular goiter. COMPARISON: Ultrasound soft tissue head/neck thyroid dated 01/17/2021 and 09/14/2019. TECHNIQUE: Linear transducer grayscale and color Doppler examination with attention to the region of the thyroid. FINDINGS: SIZE: Measurements of the thyroid lobes and nodules are given in sagittal, anteroposterior and transverse dimensions respectively. Right Thyroid Lobe: 3.5 x 1.1 x 1.1 cm, volume 2.2 mL. Previously 3.7 x 0.9 x 1.4 cm, volume 2.4 mL. Parenchyma: The gland echotexture is homogeneous. Thyroid vascularity is normal. Left Thyroid Lobe: 4.7 x 1.6 x 1.9 cm, volume 7.5 mL. Previously 4.6 x 1.3 x 1.8 cm, volume 5.6 mL. Parenchyma: The gland echotexture is homogeneous. Thyroid vascularity is normal. Isthmus: 0.2 cm in maximum AP dimension. Previously 0.2 cm. Estimated total number of nodules greater than or equal to 1 cm: 1. Election Assistant nodules are described as follows: 1. Location: Left mid. Size: 3.6 x 1.3 x 1.9 cm, volume 4.7 mL. Previously: 3.6 x 1.8 x 1.3 cm, volume 4.3 mL. Nodule characteristics: Composition: Solid/almost completely solid (2). Echogenicity: Isoechoic (1). Shape: Not taller than wide (0). Margins: Smooth (0). Echogenic Foci: None (0). ACR TI-RADS total points: 3 Previous: 3 ACR TI-RADS category: 3 Previous: 3 Significant change in size (>/= 20% in 2 dimensions and minimal increase of 2 mm or 50% or greater increase in volume): No Change in features: No Change in ACR TI-RADS risk category: No 2. Location: Right mid. Size: 0.5 x 0.3 x 0.4 cm, volume 0.03 mL. Previously: 0.4 x 0.2 x 0.1 cm, volume 0.01 mL. Nodule characteristics: Composition: Solid/almost completely solid (2). Echogenicity: Hyperechoic (1). Shape: Not taller than wide (0). Margins: Smooth (0). Echogenic Foci: None (0). ACR TI-RADS total points: 3 Previous: 3 ACR TI-RADS category: 3 Previous: 3 Significant change in size (>/= 20% in 2 dimensions and minimal increase of 2 mm or 50% or greater increase in volume): Yes Change in features: No Change in ACR TI-RADS risk category: No NODES: No lymphadenopathy is seen in the tissue surrounding the thyroid gland. US/US thyroid IMPRESSION: Bilateral thyroid nodules are redemonstrated, as detailed. ACR TI-RADS RECOMMENDATION REFERENCE: Ultrasound-guided fine-needle aspiration, followup ultrasound, no further follow up. * TR1 (0 point) and TR 2 (2 points): No FNA or follow up * TR3 (3 points): FNA if more than or equal to 2.5 cm in maximum dimension, followup ultrasound in 1, 3 and 5 years if 1.5 to 2.4 cm in maximum dimension. * TR4 (4-6 points): FNA if more than or equal to 1.5 cm in maximum dimension, followup ultrasound in 1, 2, 3 and 5 years if 1 to 1.4 cm in maximum dimension. * TR5 (more than or equal to 7 points): FNA if more than or equal to 1 cm in maximum dimension, followup ultrasound every year for 5 years if 0.5 to 0.9 cm in maximum dimension. * TR3, TR4 or TR5 nodules that are below the size threshold for follow up receive no follow up.
== END 2022-03-12 14:19 | disposition home or self-care (01) ==
LOC: HO.US 14:18
PROVIDERS: Visit Provider Internal Medicine
DX: E04.2 Nontoxic multinodular goiter (principal)
CPT/HCPCS: 76536

== ENCOUNTER 2022-05-26 10:31 | Outpatient (REF) | payer BC, SELFPAY ==
[2022-05-26 10:45] LABS: MANUAL DIFF FLAG NO
[2022-05-26 10:47] LABS: Basophils Absolute Auto 0.1 X10*3/uL (0.0-0.2); Basophils Percent Auto 0.9 % (0-2); Eosinophils Absolute Auto 0.1 X10*3/uL (0.0-0.4); Eosinophils Percent Auto 1.8 % (0-4); Hematocrit 37.3 % (37.0-47.0); Hemoglobin 12.6 g/dl (12.0-16.0); Imm Gran Abs Auto 0.01 X10*3/uL (0.00-0.03); Imm Gran Pct Auto 0.2 % (0.0-0.4); Lymphocytes Absolute Auto 2.4 X10*3/uL (1.2-4.9); Lymphocytes Percent Auto 41.8 % (20-40); Mean Corpuscular HGB Conc 33.8 g/dl (31.0-35.0); Mean Corpuscular Hemoglobin 30.1 pg (27.0-33.0); Mean Corpuscular Volume 89.2 fL (80.0-98.0); Mean Platelet Volume 9.4 fL (9.4-12.3); Monocytes Absolute Auto 0.4 X10*3/uL (0.1-1.2); Monocytes Percent Auto 7.1 % (2-11); Neutrophils Absolute Auto 2.7 x10*3/uL (2.0-8.3); Neutrophils Percent Auto 48.2 % (45-73); Platelet Count 211 X10*3/uL (160-400); Red Blood Count 4.18 X10*6/uL (4.20-5.50); Red Cell Distribution Width 12.3 % (11.0-16.0); White Blood Count 5.7 X10*3/uL (4.8-10.8)
[2022-05-26 11:16] LABS: Cholesterol 163 mg/dL; HDL Cholesterol 54 mg/dL; LDL Cholesterol Calculated 87 mg/dl; Triglycerides 111 mg/dL
[2022-05-26 11:39] LABS: Thyroid Stimulating Hormone 1.12 uIU/mL (0.32-4.0)
[2022-05-26 11:49] LABS: Alanine Aminotransferase 27 U/L (0-31); Albumin Level 4.5 g/dL (3.5-5.0); Alkaline Phosphatase 74 U/L (39-117); Anion Gap 12 (12-20); Aspartate Amino Transferase 22 U/L (5-31); Blood Urea Nitrogen 17 mg/dL (9-16); Calcium 9.8 mg/dL (8.4-10.2); Carbon Dioxide 26 mmol/L (22-29); Chloride 104 mmol/L (96-108); Estimated Glomerular Filt Rate > 60; Glucose Random 89 mg/dL (60-115); Potassium 4.4 mmol/L (3.3-5.1); Sodium 138 mmol/L (135-145); Total Protein 7.1 g/dL (6.5-8.0)
[2022-05-26 11:56] LABS: Vitamin D 25-OH Total 33.1 ng/mL (>30)
[2022-05-26 12:29] LABS: Free T4 (Free Thyroxine) 0.84 ng/dL (0.71-1.85)
[2022-05-27 15:13] LABS: Calcium (PTHI) 9.3 mg/dL (8.6-10.2); PTHI 59 pg/mL (16-77)
[2022-05-27 17:48] LABS: LDL Cholesterol Direct 80 mg/dL (<100)
== END 2022-05-26 10:32 | disposition home or self-care (01) ==
LOC: HO.LAB 10:31
PROVIDERS: Internal Medicine Gastroenterology; PCP Internal Medicine; Visit Provider Internal Medicine
DX: K75.81 Nonalcoholic steatohepatitis (NASH) (principal); E04.2 Nontoxic multinodular goiter; E83.52 Hypercalcemia; R53.82 Chronic fatigue, unspecified; E78.5 Hyperlipidemia, unspecified
CPT/HCPCS: 36415; 80053; 80061; 82306; 83721; 83970; 84439; 84443; 85025

== ENCOUNTER → 2022-07-09 11:25 | Outpatient (BNVA) | payer BC, SELFPAY | PROVIDERS: PCP Internal Medicine; Visit Provider Internal Medicine | DX: Z13.89 Encounter for screening for other disorder (principal) ==

== ENCOUNTER 2022-08-13 12:41 | Outpatient (REF) | payer BC, SELFPAY ==
--- NOTE | ~2022-08-13 | MM_ITS ---
EXAMINATION: MM DIAGNOSTIC DIGITAL BREAST TOMOSYNTHESIS, BILATERAL CLINICAL INFORMATION: Yearly examination of the right breast with calcification, follow up left breast. The lifetime risk of breast cancer based on the Tyrer-Cuzick Model is 8%. COMPARISON: Mammography: 08/13/2021 and studies dating back to 07/22/2018. TECHNIQUE: Digital breast tomosynthesis is performed in both the craniocaudal and mediolateral oblique views along with computer-aided detection (CAD). Synthesized 2D images are generated from the tomosynthesis. Additional spot magnification views of the left breast in craniocaudal and 90 degree mediolateral views performed. FINDINGS: There are scattered areas of fibroglandular density (ACR BI-RADS breast composition Category b). There are no significant masses, abnormal calcifications, or other abnormalities. Left breast calcifications are stable and benign in appearance. Results are provided to the patient at time of visit by the technologist. MM/MM tomosynthesis diagnostic BI IMPRESSION: There are no significant changes from prior study. ASSESSMENT: BI-RADS 2: Benign. RECOMMENDATION: Routine annual mammography screening due in 12 months. This patient's information was entered into a reminder system with a target due date for their next mammogram.
== END 2022-08-13 12:42 | disposition home or self-care (01) ==
LOC: HO.MAMMO 12:41
PROVIDERS: PCP Internal Medicine; Visit Provider Internal Medicine
DX: R92.1 Mammographic calcification found on diagnostic imaging of breast (principal)
CPT/HCPCS: 77062; 77066

== ENCOUNTER → 2022-09-01 10:02 | Outpatient (BNVA) | payer BC, SELFPAY | PROVIDERS: PCP Internal Medicine; Referring Provider Internal Medicine; Visit Provider Internal Medicine Gastroenterology | DX: Z13.89 Encounter for screening for other disorder (principal) ==

== ENCOUNTER 2022-09-15 13:58 | Outpatient (REF) | payer BC, SELFPAY ==
--- NOTE | ~2022-09-15 | US_ITS ---
EXAMINATION: US ABDOMEN LIMITED WITH LIVER ELASTOGRAPHY CLINICAL INFORMATION: Nonalcoholic steatohepatitis COMPARISON: August 14, 2021 TECHNIQUE: Real-time imaging of the abdominal viscera. Noninvasive ultrasound liver fibrosis assessment is performed using Adriana ElastPQ point quantification shear wave elastography (2D-SWE) with a C5-2 MHz transducer. Multiple elastography samples are obtained. FINDINGS: PANCREAS: Normal. The visualized pancreatic head and body are normal in appearance. The remainder of the pancreas is obscured from visualization by the overlying bowel gas. LIVER: There is some mild diffuse increased echogenicity consistent with fatty infiltration. No focal lesion or intrahepatic bile duct dilatation is appreciated. The right lobe measures 15.5 cm in length. The left lobe measures 10.6 cm in length. Portal flow is hepatopedal Shear wave liver elastography median stiffness is 1.42 m/s (reference: normal median stiffness is 1.3 m/s or less). IQR/median stiffness to assess sampling precision is 0.13 (reference: good quality data set is IQR/median stiffness of 0.15 or less). GALLBLADDER: Normal. The gallbladder is physiologically distended without evidence of stones, sludge, polyps, wall thickening or pericholecystic fluid. COMMON BILE DUCT: Normal in caliber measuring 0.7 cm in diameter. RIGHT KIDNEY: Normal. No hydronephrosis. No renal calculi or focal parenchymal lesions. The kidney measures 8.2 cm in maximum dimension. FREE FLUID: None. US/US abdomen roman w elastography IMPRESSION: 1. Fatty infiltration of the liver. 2. Liver elastography: In the absence of other known clinical signs, measurements rule out compensated advanced chronic liver disease. If there are known clinical signs, further testing may be needed for confirmation. REFERENCE: Society of Radiologists in Ultrasound Liver Stiffness Thresholds (2020): LIVER STIFFNESS THRESHOLDS: *Liver Stiffness equal or less than 1.3 m/s: High probability of being normal. *Liver Stiffness less than 1.7 m/s: In the absence of other known clinical signs, rules out compensated advanced chronic liver disease. *Liver Stiffness 1.7-2.1 m/s: Suggestive of compensated advanced chronic liver disease but need further test for confirmation. *Liver Stiffness over 2.1 m/s: Rules in compensated advanced chronic liver disease. *Liver Stiffness over 2.4 m/s: Suggestive of clinically significant portal hypertension. QUALITY OF DATA SET: *IQR/Median value equal or less than 0.15 implies a quality data set. *IQR/Median value over 0.15 implies a poor quality data set. SIGNIFICANT CHANGE FROM PRIOR EXAM: Significant change if liver stiffness measurement is 10% or greater from prior exam. OTHER CONSIDERATIONS: The stage of liver fibrosis may be overestimated in the setting of acute hepatitis, liver inflammation, elevated liver function tests, hepatic vascular congestion, obstructive cholestasis, non-fasting state, and infiltrative diseases such as amyloidosis and lymphoma. In some patients with NAFLD, the liver stiffness thresholds for compensated advanced chronic liver disease may be lower. In causes other than viral hepatitis and NAFLD, liver stiffness thresholds are not well established.
== END 2022-09-15 13:59 | disposition home or self-care (01) ==
LOC: HO.US 13:58
PROVIDERS: PCP Internal Medicine; Visit Provider Internal Medicine Gastroenterology
DX: K74.60 Unspecified cirrhosis of liver (principal); K75.81 Nonalcoholic steatohepatitis (NASH); R74.01 Elevation of levels of liver transaminase levels
CPT/HCPCS: 76705; 76981

== ENCOUNTER 2022-09-25 15:36 | Emergency (ER) | payer BC, SELFPAY ==
[2022-09-25 15:42] VITALS: BP 123/80; PULSE 88; RESP 18; TEMP 36.1; O2SAT 98; BMI 27.1
--- NOTE | 2022-09-25 15:43 | ED_ITS ---
HPI - Abdominal Pain General Chief Complaint: Abdominal Pain <Lenore Matson NP - Last Filed: 09/25/22 15:46> Stated Complaint: Abdominal Pain <Lenore Matson NP - Last Filed: 09/25/22 15:46> Time Seen by Provider: 09/25/22 21:18 <Lenore Matson NP - Last Filed: 09/25/22 15:46> Source: patient <Steve Fleming MD - Last Filed: 09/26/22 06:23> Mode of arrival: ambulatory <Steve Fleming MD - Last Filed: 09/26/22 06:23> Limitations: no limitations <Steve Fleming MD - Last Filed: 09/26/22 06:23> History of Present Illness HPI narrative: Patient otherwise healthy comes here for lower abdominal cramps all day with nausea, vomited once, no fever no chills. Patient denies any urinary complaints never had similar pain in the past no history of kidney stone <Steve Fleming MD - Last Filed: 09/26/22 06:23> Related Data Home Medications: Home Medications Medication Instructions Recorded Confirmed cetirizine 10 mg capsule (Zyrtec) 10 mg PO DAILY PRN Allergy Symptoms 09/20/20 07/10/22 Previous Rx's Medication Instructions Recorded atorvastatin 20 mg tablet 20 mg PO BEDTIME 30 days #30 tabs 03/03/22 citalopram 10 mg tablet 10 mg PO DAILY 30 days #30 tabs 06/07/22 estradiol 1 mg tablet 1 mg PO DAILY 30 days #30 tabs 07/09/22 medroxyprogesterone 10 mg tablet See Rx Instructions PO DAILY 12 07/09/22 days #12 tabs ondansetron 4 mg disintegrating 4 mg PO Q6-8H PRN nausea and 09/25/22 tablet vomiting #7 tabs <Lenore Matson NP - Last Filed: 09/25/22 15:46> Allergies/Adverse Reactions: Allergies Allergy/AdvReac Type Severity Reaction Status Date / Time Sulfa (Sulfonamide Allergy Intermediate rash Verified 09/25/22 15:42 Antibiotics) <Lenore Matson NP - Last Filed: 09/25/22 15:46> Review of Systems Review of Systems Yes all other systems are reviewed and are negative <Steve Fleming MD - Last Filed: 09/26/22 06:23> [facility] Past Medical History Medical History: Medical History Abnormal mammogram Chronic fatigue Depression Disorder of bone and cartilage, unspecified Hypercalcemia Hyperkalemia Hyperlipidemia Hyperparathyroidism Mild major depression, single episode Mixed hyperlipidemia Multinodular thyroid Premature ovarian failure Transaminitis Vitamin D deficiency <Lenore Matson NP - Last Filed: 09/25/22 15:46> Surgical History: Surgical History Hx of biopsy Hx of cervical polypectomy Hx of colonoscopy Hx of vaginal surgery <Lenore Matson NP - Last Filed: 09/25/22 15:46> Family History Family History: Family History Father Arthritis of knee Hypothyroidism Atrial fibrillation Mother Diabetes Myocardial infarction Cardiovascular disease Maternal Grandmother Diabetes Maternal Uncle Diabetes Brother No problems noted. Brother No problems noted. <Lenore Matson NP - Last Filed: 09/25/22 15:46> Social History Social History: Social History Household Members: Family Housing: House Are you a primary adult care manager to a significant other at home: No Do you presently have visiting nurse or other home services: No Alcohol intake: former Patient Tobacco Use Status: Never used Tobacco Smoked in Last 30 Days: No e-Cigarette/Vaping Use: Never Used Second Hand Smoke Exposure: No Use of substances other than those prescribed or required for medical reasons: No Advance Directives: No Advance Directives Information Provided: Yes Patient : No service: No Current occupational status: employed Current occupational exposures/hazards: No Sexual orientation: Straight/Heterosexual Gender identity: Female Cognitive needs: No Hearing needs: No Vision needs: No <Lenore Matson NP - Last Filed: 09/25/22 15:46> Physical Exam ED Vital Signs: Vital Signs - 24 hr 09/25/22 15:42 09/25/22 21:55 09/25/22 23:26 Temperature 96.9 F 98.6 F 98.2 F Pulse Rate 88 66 59 Respiratory Rate 18 18 18 Blood Pressure 123/80 127/77 132/72 Pulse Oximetry 98 99 98 Oxygen Delivery Method Room Air Room Air Room Air BMI result Body Mass Index 27.1 <Lenore Matson NP - Last Filed: 09/25/22 15:46> Vital Signs - 24 hr 09/25/22 15:42 09/25/22 21:55 09/25/22 23:26 Temperature 96.9 F 98.6 F 98.2 F Pulse Rate 88 66 59 Respiratory Rate 18 18 18 Blood Pressure 123/80 127/77 132/72 Pulse Oximetry 98 99 98 Oxygen Delivery Method Room Air Room Air Room Air BMI result Body Mass Index 27.1 <Steve Fleming MD - Last Filed: 09/26/22 06:23> Appearance: Alert. Oriented X3. No acute distress. Eyes no pallor or icterus ENT: Pharynx normal. Oral Mucosa moist Neck: Normal inspection. Neck supple. CVS: Normal heart rate and rhythm. Pulses normal. Respiratory: No respiratory distress. Equal air entry bilateral, no wheezing/rales/rhonchi Abdomen: Soft with diffuse tenderness no rebound tenderness or guarding Bowel sounds are present, no mass palpable, no CVA tenderness Skin: Skin warm and dry. Normal skin color. Normal skin turgor. Extremities: No lower extremity edema. No calf tenderness Neuro: Oriented X 3. No motor deficit. No sensory deficit.No cerebellar signs , cranial nerves II-XII intact <Steve Fleming MD - Last Filed: 09/26/22 06:23> Course Course Course Narrative: This is a rapid medical exam. Deferred additional HPI, ROS, PE to primary provider. 42 yo w/ history anxiety, depression, HLD here with left lower abdominal pain, nausea x several hours. No vomiting, diarrhea, constipation, urinary symptoms. Will check labs, UA, covid screen. VSS <Lenore Matson NP - Last Filed: 09/25/22 15:46> Medical Decision Making Medical Decision Making MDM Narrative: Patient with benign abdomen with nausea labs stable discharge patient home on Zofran likely viral etiology <Steve Fleming MD - Last Filed: 09/26/22 06:23> Lab Data Result Diagrams: 09/25/22 16:24 09/25/22 16:24 <Lenore Matson NP - Last Filed: 09/25/22 15:46> Labs: Lab Results 09/25/22 09/25/22 09/25/22 Range/Units 16:24 16:24 16:24 WBC 7.6 (4.8-10.8) X10*3/uL RBC 3.97 L (4.20-5.50) X10*6/uL Hgb 12.0 (12.0-16.0) g/dl Hct 36.1 L (37.0-47.0) % MCV 90.9 (80.0-98.0) fL MCH 30.2 (27.0-33.0) pg MCHC 33.2 (31.0-35.0) g/dl RDW 12.2 (11.0-16.0) % Plt Count 236 (160-400) X10*3/uL MPV 9.8 (9.4-12.3) fL Immature Gran % (Auto) 0.3 (0.0-0.4) % Neut % (Auto) 69.7 (45-73) % Lymph % (Auto) 22.9 (20-40) % [place] % (Auto) 5.3 (2-11) % Eos % (Auto) 0.9 (0-4) % Baso % (Auto) 0.9 (0-2) % Lymph # (Auto) 1.7 (1.2-4.9) X10*3/uL [place] # (Auto) 0.4 (0.1-1.2) X10*3/uL Eos # (Auto) 0.1 (0.0-0.4) X10*3/uL Baso # (Auto) 0.1 (0.0-0.2) X10*3/uL Abs Immat Gran (auto) 0.02 (0.00-0.03) X10*3/uL Absolute Neuts (auto) 5.3 (2.0-8.3) x10*3/uL Absolute Nucleated RBC 0.000 (0.0-0.012) X10*3/uL Nucleated RBC % (auto) 0.0 (0.0-0.2) /100WBC Sodium 141 (135-145) mmol/L Potassium 4.3 (3.3-5.1) mmol/L Chloride 110 H (96-108) mmol/L Carbon Dioxide 28 (22-29) mmol/L Anion Gap 7 L (12-20) BUN 18 H (9-16) mg/dL Creatinine 0.93 (0.5-1.4) mg/dL Estim Creat Clear Calc 72.1 Estimated GFR > 60 Random Glucose 141 H (60-115) mg/dL Calcium 9.8 (8.4-10.2) mg/dL Total Bilirubin 0.6 (0.0-1.0) mg/dL Direct Bilirubin 0.2 (0.0-0.5) mg/dL AST 17 (5-31) U/L ALT 16 (0-31) U/L Alkaline Phosphatase 60 (39-117) U/L Total Protein 6.9 (6.5-8.0) g/dL Albumin 4.3 (3.5-5.0) g/dL Lipase 27 (8-78) U/L Urine Color Urine Appearance Urine pH (5.0-9.0) Ur Specific [place] (1.005-1.025) Urine Protein (Neg-Trace) mg/dL Urine Glucose (UA) (Negative) mg/dL Urine Ketones (Negative) mg/dL Urine Blood (Negative) Urine Nitrite (Negative) Ur Leukocyte Esterase (Negative) Urine RBC (0-2) /HPF Urine WBC (0-5) /HPF Ur Squamous Epith Cells (0-2) /HPF Urine Bacteria (None Seen) Hyaline Casts (0-2) /LPF Urine Test (NEGATIVE) COVID-19 (JONATHAN) Negative (Negative) COVID-19 Clin Com See Note 09/25/22 09/25/22 Range/Units 22:20 22:20 WBC (4.8-10.8) X10*3/uL RBC (4.20-5.50) X10*6/uL Hgb (12.0-16.0) g/dl Hct (37.0-47.0) % MCV (80.0-98.0) fL MCH (27.0-33.0) pg MCHC (31.0-35.0) g/dl RDW (11.0-16.0) % Plt Count (160-400) X10*3/uL MPV (9.4-12.3) fL Immature Gran % (Auto) (0.0-0.4) % Neut % (Auto) (45-73) % Lymph % (Auto) (20-40) % [place] % (Auto) (2-11) % Eos % (Auto) (0-4) % Baso % (Auto) (0-2) % Lymph # (Auto) (1.2-4.9) X10*3/uL [place] # (Auto) (0.1-1.2) X10*3/uL Eos # (Auto) (0.0-0.4) X10*3/uL Baso # (Auto) (0.0-0.2) X10*3/uL Abs Immat Gran (auto) (0.00-0.03) X10*3/uL Absolute Neuts (auto) (2.0-8.3) x10*3/uL Absolute Nucleated RBC (0.0-0.012) X10*3/uL Nucleated RBC % (auto) (0.0-0.2) /100WBC Sodium (135-145) mmol/L Potassium (3.3-5.1) mmol/L Chloride (96-108) mmol/L Carbon Dioxide (22-29) mmol/L Anion Gap (12-20) BUN (9-16) mg/dL Creatinine (0.5-1.4) mg/dL Estim Creat Clear Calc Estimated GFR Random Glucose (60-115) mg/dL Calcium (8.4-10.2) mg/dL Total Bilirubin (0.0-1.0) mg/dL Direct Bilirubin (0.0-0.5) mg/dL AST (5-31) U/L ALT (0-31) U/L Alkaline Phosphatase (39-117) U/L Total Protein (6.5-8.0) g/dL Albumin (3.5-5.0) g/dL Lipase (8-78) U/L Urine Color Yellow Urine Appearance Clear Urine pH 6.0 (5.0-9.0) Ur Specific [place] 1.020 (1.005-1.025) Urine Protein Negative (Neg-Trace) mg/dL Urine Glucose (UA) Negative (Negative) mg/dL Urine Ketones Negative (Negative) mg/dL Urine Blood Trace H (Negative) Urine Nitrite Negative (Negative) Ur Leukocyte Esterase Negative (Negative) Urine RBC 0-2 (0-2) /HPF Urine WBC 0-5 (0-5) /HPF Ur Squamous Epith Cells 3-5 (0-2) /HPF Urine Bacteria None Seen (None Seen) Hyaline Casts 0-2 (0-2) /LPF Urine Test NEGATIVE (NEGATIVE) COVID-19 (JONATHAN) (Negative) COVID-19 Clin Com <Lenore Matson, SALES REPRESENTATIVE [employer] - Last Filed: 09/25/22 15:46> Lab Results 09/25/22 09/25/22 09/25/22 Range/Units 16:24 16:24 16:24 WBC 7.6 (4.8-10.8) X10*3/uL RBC 3.97 L (4.20-5.50) X10*6/uL Hgb 12.0 (12.0-16.0) g/dl Hct 36.1 L (37.0-47.0) % MCV 90.9 (80.0-98.0) fL MCH 30.2 (27.0-33.0) pg MCHC 33.2 (31.0-35.0) g/dl RDW 12.2 (11.0-16.0) % Plt Count 236 (160-400) X10*3/uL MPV 9.8 (9.4-12.3) fL Immature Gran % (Auto) 0.3 (0.0-0.4) % Neut % (Auto) 69.7 (45-73) % Lymph % (Auto) 22.9 (20-40) % [place] % (Auto) 5.3 (2-11) % Eos % (Auto) 0.9 (0-4) % Baso % (Auto) 0.9 (0-2) % Lymph # (Auto) 1.7 (1.2-4.9) X10*3/uL [place] # (Auto) 0.4 (0.1-1.2) X10*3/uL Eos # (Auto) 0.1 (0.0-0.4) X10*3/uL Baso # (Auto) 0.1 (0.0-0.2) X10*3/uL Abs Immat Gran (auto) 0.02 (0.00-0.03) X10*3/uL Absolute Neuts (auto) 5.3 (2.0-8.3) x10*3/uL Absolute Nucleated RBC 0.000 (0.0-0.012) X10*3/uL Nucleated RBC % (auto) 0.0 (0.0-0.2) /100WBC Sodium 141 (135-145) mmol/L Potassium 4.3 (3.3-5.1) mmol/L Chloride 110 H (96-108) mmol/L Carbon Dioxide 28 (22-29) mmol/L Anion Gap 7 L (12-20) BUN 18 H (9-16) mg/dL Creatinine 0.93 (0.5-1.4) mg/dL Estim Creat Clear Calc 72.1 Estimated GFR > 60 Random Glucose 141 H (60-115) mg/dL Calcium 9.8 (8.4-10.2) mg/dL Total Bilirubin 0.6 (0.0-1.0) mg/dL Direct Bilirubin 0.2 (0.0-0.5) mg/dL AST 17 (5-31) U/L ALT 16 (0-31) U/L Alkaline Phosphatase 60 (39-117) U/L Total Protein 6.9 (6.5-8.0) g/dL Albumin 4.3 (3.5-5.0) g/dL Lipase 27 (8-78) U/L Urine Color Urine Appearance Urine pH (5.0-9.0) Ur Specific [place] (1.005-1.025) Urine Protein (Neg-Trace) mg/dL Urine Glucose (UA) (Negative) mg/dL Urine Ketones (Negative) mg/dL Urine Blood (Negative) Urine Nitrite (Negative) Ur Leukocyte Esterase (Negative) Urine RBC (0-2) /HPF Urine WBC (0-5) /HPF Ur Squamous Epith Cells (0-2) /HPF Urine Bacteria (None Seen) Hyaline Casts (0-2) /LPF Urine Test (NEGATIVE) COVID-19 (JONATHAN) Negative (Negative) COVID-19 Clin Com See Note 09/25/22 09/25/22 Range/Units 22:20 22:20 WBC (4.8-10.8) X10*3/uL RBC (4.20-5.50) X10*6/uL Hgb (12.0-16.0) g/dl Hct (37.0-47.0) % MCV (80.0-98.0) fL MCH (27.0-33.0) pg MCHC (31.0-35.0) g/dl RDW (11.0-16.0) % Plt Count (160-400) X10*3/uL MPV (9.4-12.3) fL Immature Gran % (Auto) (0.0-0.4) % Neut % (Auto) (45-73) % Lymph % (Auto) (20-40) % [place] % (Auto) (2-11) % Eos % (Auto) (0-4) % Baso % (Auto) (0-2) % Lymph # (Auto) (1.2-4.9) X10*3/uL [place] # (Auto) (0.1-1.2) X10*3/uL Eos # (Auto) (0.0-0.4) X10*3/uL Baso # (Auto) (0.0-0.2) X10*3/uL Abs Immat Gran (auto) (0.00-0.03) X10*3/uL Absolute Neuts (auto) (2.0-8.3) x10*3/uL Absolute Nucleated RBC (0.0-0.012) X10*3/uL Nucleated RBC % (auto) (0.0-0.2) /100WBC Sodium (135-145) mmol/L Potassium (3.3-5.1) mmol/L Chloride (96-108) mmol/L Carbon Dioxide (22-29) mmol/L Anion Gap (12-20) BUN (9-16) mg/dL Creatinine (0.5-1.4) mg/dL Estim Creat Clear Calc Estimated GFR Random Glucose (60-115) mg/dL Calcium (8.4-10.2) mg/dL Total Bilirubin (0.0-1.0) mg/dL Direct Bilirubin (0.0-0.5) mg/dL AST (5-31) U/L ALT (0-31) U/L Alkaline Phosphatase (39-117) U/L Total Protein (6.5-8.0) g/dL Albumin (3.5-5.0) g/dL Lipase (8-78) U/L Urine Color Yellow Urine Appearance Clear Urine pH 6.0 (5.0-9.0) Ur Specific [place] 1.020 (1.005-1.025) Urine Protein Negative (Neg-Trace) mg/dL Urine Glucose (UA) Negative (Negative) mg/dL Urine Ketones Negative (Negative) mg/dL Urine Blood Trace H (Negative) Urine Nitrite Negative (Negative) Ur Leukocyte Esterase Negative (Negative) Urine RBC 0-2 (0-2) /HPF Urine WBC 0-5 (0-5) /HPF Ur Squamous Epith Cells 3-5 (0-2) /HPF Urine Bacteria None Seen (None Seen) Hyaline Casts 0-2 (0-2) /LPF Urine Test NEGATIVE (NEGATIVE) COVID-19 (JONATHAN) (Negative) COVID-19 Clin Com <Steve Fleming MD - Last Filed: 09/26/22 06:23> Medications Administered Discontinued Medications Generic Name Dose Route Start Last Admin Trade Name Freq PRN Reason Stop Dose Admin Dicyclomine HCl 20 mg 09/25/22 21:42 09/25/22 21:58 Dicyclomine Hcl 10 Mg Capsule PO 09/25/22 21:43 20 mg ONCE ONE Administration Ondansetron HCl 4 mg 09/25/22 21:42 09/25/22 21:58 Ondansetron Odt 4 Mg Tab.Rapdis TRANSLINGU 09/25/22 21:43 4 mg ONCE ONE Administration <Lenore Matson NP - Last Filed: 09/25/22 15:46> Medications Administered Discontinued Medications Generic Name Dose Route Start Last Admin Trade Name Freq PRN Reason Stop Dose Admin Dicyclomine HCl 20 mg 09/25/22 21:42 09/25/22 21:58 Dicyclomine Hcl 10 Mg Capsule PO 09/25/22 21:43 20 mg ONCE ONE Administration Ondansetron HCl 4 mg 09/25/22 21:42 09/25/22 21:58 Ondansetron Odt 4 Mg Tab.Colette SALDANA 09/25/22 21:43 4 mg ONCE ONE Administration <Steve Fleming MD - Last Filed: 09/26/22 06:23> Discharge Plan Discharge Clinical Impression: Gastroenteritis <Lenore Matson NP - Last Filed: 09/25/22 15:46> Patient Disposition: Home, Self-Care <Lenore Matson NP - Last Filed: 09/25/22 15:46> Instructions: Acute Nausea and Vomiting (ED) <Lenore Matson NP - Last Filed: 09/25/22 15:46> Additional Instructions: Drink plenty of fluids Medicine for nausea and abdominal cramps Follow with PCP <Lenore Matson NP - Last Filed: 09/25/22 15:46> Prescriptions: New ondansetron 4 mg tablet,disintegrating 4 mg PO Q6-8H PRN (Reason: nausea and vomiting) Qty: 7 0RF No Action atorvastatin 20 mg tablet 20 mg PO BEDTIME 30 Days Qty: 30 11RF citalopram 10 mg tablet 10 mg PO DAILY 30 Days Qty: 30 3RF medroxyprogesterone 10 mg tablet See Rx Instructions PO DAILY 12 Days Qty: 12 6RF Rx Instructions: Take 1 tab daily the first 12 days of every month orally daily; Zyrtec 10 mg capsule 10 mg PO DAILY PRN (Reason: Allergy Symptoms) estradiol 1 mg tablet 1 mg PO DAILY 30 Days Qty: 30 6RF <Lenore Matson NP - Last Filed: 09/25/22 15:46> Stand Alone Forms: Work/School Release <Lenore Matson NP - Last Filed: 09/25/22 15:46> Interventions: ED Discharge Assessment Last Done: 09/26/22 00:12 <Lenore Matson NP - Last Filed: 09/25/22 15:46> Discharge Date/Time: 09/26/22 00:12 <Lenore Matson NP - Last Filed: 09/25/22 15:46>
[2022-09-25 16:28] LABS: MANUAL DIFF FLAG NO
[2022-09-25 16:35] LABS: Basophils Absolute Auto 0.1 X10*3/uL (0.0-0.2); Basophils Percent Auto 0.9 % (0-2); Eosinophils Absolute Auto 0.1 X10*3/uL (0.0-0.4); Eosinophils Percent Auto 0.9 % (0-4); Hematocrit 36.1 % (37.0-47.0); Imm Gran Abs Auto 0.02 X10*3/uL (0.00-0.03); Imm Gran Pct Auto 0.3 % (0.0-0.4); Lymphocytes Absolute Auto 1.7 X10*3/uL (1.2-4.9); Lymphocytes Percent Auto 22.9 % (20-40); Mean Corpuscular HGB Conc 33.2 g/dl (31.0-35.0); Mean Corpuscular Hemoglobin 30.2 pg (27.0-33.0); Mean Corpuscular Volume 90.9 fL (80.0-98.0); Mean Platelet Volume 9.8 fL (9.4-12.3); Monocytes Absolute Auto 0.4 X10*3/uL (0.1-1.2); Monocytes Percent Auto 5.3 % (2-11); Neutrophils Absolute Auto 5.3 x10*3/uL (2.0-8.3); Neutrophils Percent Auto 69.7 % (45-73); Platelet Count 236 X10*3/uL (160-400); Red Blood Count 3.97 X10*6/uL (4.20-5.50); Red Cell Distribution Width 12.2 % (11.0-16.0); White Blood Count 7.6 X10*3/uL (4.8-10.8)
[2022-09-25 16:47] LABS: Alanine Aminotransferase 16 U/L (0-31); Albumin Level 4.3 g/dL (3.5-5.0); Alkaline Phosphatase 60 U/L (39-117); Anion Gap 7 (12-20); Aspartate Amino Transferase 17 U/L (5-31); Bilirubin Direct 0.2 mg/dL (0.0-0.5); Bilirubin Total 0.6 mg/dL (0.0-1.0); Blood Urea Nitrogen 18 mg/dL (9-16); Calcium 9.8 mg/dL (8.4-10.2); Carbon Dioxide 28 mmol/L (22-29); Chloride 110 mmol/L (96-108); Creatinine Clr Calc Pharmacy 72.1; Estimated Glomerular Filt Rate > 60; Glucose Random 141 mg/dL (60-115); Lipase 27 U/L (8-78); Potassium 4.3 mmol/L (3.3-5.1); Sodium 141 mmol/L (135-145); Total Protein 6.9 g/dL (6.5-8.0)
[2022-09-25 16:49] LABS: COVID-19 Test Negative (Negative); IDNOW Serial# 9DB6401D
[2022-09-25 21:55] VITALS: BP 127/77; PULSE 66; RESP 18; TEMP 37; O2SAT 99
[2022-09-25] MEDS: Dicyclomine HCl 10 MG CAPSULE 20 MG PO (21:58)
[2022-09-25] MEDS: Ondansetron ODT 4 MG TAB.RAPDIS TRANSLINGU (21:58)
--- NOTE | 2022-09-25 22:32 | PC.NURSE ---
pt medicated according to mar. pt parents at bedside. urine sample collected and sent down to lab. pt resting on stretcher at this time
[2022-09-25 22:35] LABS: UPreg QC Valid YES; Urine Pregnancy NEGATIVE (NEGATIVE)
[2022-09-25 22:54] LABS: Appearance Urine Clear; Color Urine Yellow; Glucose Urine UA Negative (Negative); Leukocyte Esterase Urine Negative (Negative); Nitrite Urine Negative (Negative); UMIC TRIGGER UACC YES; Urine Blood Trace (Negative); Urine Ketones Negative (Negative); Urine Protein Negative (Neg-Trace)
[2022-09-25 23:21] LABS: Bacteria Urine None Seen (None Seen); Hyaline Casts Urine 0-2 /LPF (0-2); RBC Urine 0-2 /HPF (0-2); WBC Urine 0-5 /HPF (0-5)
[2022-09-25 23:26] VITALS: BP 132/72; PULSE 59; RESP 18; TEMP 36.8; O2SAT 98
--- NOTE | 2022-09-26 00:09 | PC.NURSE ---
pt parents remain at bedside. pt ambulatory at discharge. pt provided with discharge packet and work note at discharge. pt verbalizes understanding of discharge plan
== END 2022-09-26 00:12 | disposition home or self-care (01) ==
PROVIDERS: Nurse Practitioner Family; Emergency Provider Internal Medicine; PCP Internal Medicine
DX: K52.9 Noninfective gastroenteritis and colitis, unspecified (principal); Z20.822 Contact with and (suspected) exposure to COVID-19; Z20.828 Contact with and (suspected) exposure to other viral communicable diseases; Z79.899 Other long term (current) drug therapy
CPT/HCPCS: 80048; 80076; 81001; 81025; 83690; 85025; 87635; 99283; 99284

== ENCOUNTER 2022-09-26 09:11 | Outpatient (REF) | payer BC, SELFPAY ==
[2022-09-26 10:56] LABS: Alanine Aminotransferase 16 U/L (0-31); Albumin Level 4.2 g/dL (3.5-5.0); Alkaline Phosphatase 65 U/L (39-117); Anion Gap 12 (12-20); Aspartate Amino Transferase 17 U/L (5-31); Bilirubin Total 1.3 mg/dL (0.0-1.0); Blood Urea Nitrogen 14 mg/dL (9-16); Calcium 9.5 mg/dL (8.4-10.2); Carbon Dioxide 28 mmol/L (22-29); Chloride 106 mmol/L (96-108); Cholesterol 154 mg/dL; Estimated Glomerular Filt Rate 60; Glucose Fasting 93 mg/dL (60-99); Glucose Random 92 mg/dL (60-115); HDL Cholesterol 49 mg/dL; LDL Cholesterol Calculated 77 mg/dl; Phosphorus 2.7 mg/dL (2.7-4.5); Potassium 4.5 mmol/L (3.3-5.1); Sodium 141 mmol/L (135-145); Total Protein 6.8 g/dL (6.5-8.0); Triglycerides 142 mg/dL
[2022-09-26 11:12] LABS: Free T4 (Free Thyroxine) 0.79 ng/dL (0.71-1.85)
[2022-09-28 06:49] LABS: Follicle Stimulating Hormone 42.8 mIU/mL; Lutenizing Hormone 19.2 mIU/mL; Sex Hormone Binding Globulin 95 nmol/L (17-124)
[2022-09-29 13:23] LABS: Calcium (PTHI) 9.5 mg/dL (8.6-10.2); PTHI 73 pg/mL (16-77)
[2022-10-02 22:54] LABS: Estradiol Ultra Sensitive 63 pg/mL
== END 2022-09-26 09:12 | disposition home or self-care (01) ==
LOC: HO.LAB 09:11
PROVIDERS: PCP Internal Medicine; Visit Provider Internal Medicine
DX: E28.39 Other primary ovarian failure (principal); E21.3 Hyperparathyroidism, unspecified; E04.2 Nontoxic multinodular goiter; E55.9 Vitamin D deficiency, unspecified; E78.2 Mixed hyperlipidemia
CPT/HCPCS: 36415; 80053; 80061; 82306; 82670; 83001; 83002; 83970; 84100; 84270; 84439; 84443

== ENCOUNTER 2022-10-06 10:08 | Outpatient (REF) | payer BC, SELFPAY ==
[2022-10-06 11:47] LABS: MANUAL DIFF FLAG NO
[2022-10-06 12:48] LABS: Basophils Absolute Auto 0.1 X10*3/uL (0.0-0.2); Basophils Percent Auto 0.8 % (0-2); Eosinophils Absolute Auto 0.2 X10*3/uL (0.0-0.4); Eosinophils Percent Auto 2.1 % (0-4); Hematocrit 40.3 % (37.0-47.0); Hemoglobin 13.3 g/dl (12.0-16.0); Imm Gran Abs Auto 0.02 X10*3/uL (0.00-0.03); Imm Gran Pct Auto 0.3 % (0.0-0.4); Lymphocytes Percent Auto 42.6 % (20-40); Mean Corpuscular Hemoglobin 30.4 pg (27.0-33.0); Mean Platelet Volume 10.3 fL (9.4-12.3); Monocytes Absolute Auto 0.4 X10*3/uL (0.1-1.2); Monocytes Percent Auto 6.1 % (2-11); Neutrophils Absolute Auto 3.4 x10*3/uL (2.0-8.3); Neutrophils Percent Auto 48.1 % (45-73); Platelet Count 262 X10*3/uL (160-400); Red Blood Count 4.38 X10*6/uL (4.20-5.50); Red Cell Distribution Width 11.9 % (11.0-16.0); White Blood Count 7.1 X10*3/uL (4.8-10.8)
[2022-10-06 13:13] LABS: Alanine Aminotransferase 16 U/L (0-31); Albumin Level 4.4 g/dL (3.5-5.0); Alkaline Phosphatase 62 U/L (39-117); Anion Gap 12 (12-20); Aspartate Amino Transferase 19 U/L (5-31); Bilirubin Total 0.7 mg/dL (0.0-1.0); Blood Urea Nitrogen 15 mg/dL (9-16); Calcium 9.7 mg/dL (8.4-10.2); Carbon Dioxide 27 mmol/L (22-29); Chloride 107 mmol/L (96-108); Estimated Glomerular Filt Rate > 60; Glucose Random 85 mg/dL (60-115); Potassium 5.2 mmol/L (3.3-5.1); Sodium 141 mmol/L (135-145); Total Protein 7.4 g/dL (6.5-8.0)
[2022-10-06 14:30] LABS: CT PCR NOT DETECTED (Not Detect.); NG PCR NOT DETECTED (Not Detect.)
[2022-10-08 03:43] LABS: Syphilis Screen Nonreactive (Nonreactive)
[2022-10-08 04:27] LABS: HBc Num1 0.06 S/CO (0.00-0.79); HIV AB/AG Nonreactive (Nonreactive); HIV Num 1 0.07 S/CO (0.00-0.99); Hepatitis B Core Antibody Nonreactive (Nonreactive); ~HepC Num1 0.13 S/CO (0.00-0.79); ~Hepatitis C Antibody Nonreactive (Nonreactive)
== END 2022-10-06 10:09 | disposition home or self-care (01) ==
LOC: HO.LAB 10:08
PROVIDERS: Internal Medicine Gastroenterology; PCP Internal Medicine; Visit Provider Advanced Practice Midwife
DX: Z11.4 Encounter for screening for human immunodeficiency virus [HIV] (principal); K75.81 Nonalcoholic steatohepatitis (NASH); R74.01 Elevation of levels of liver transaminase levels; K59.00 Constipation, unspecified; Z20.2 Contact with and (suspected) exposure to infections with a predominantly sexual mode of transmission
CPT/HCPCS: 0353U; 36415; 80053; 85025; 86704; 86780; 86803; 87389

== ENCOUNTER 2022-10-06 11:55 | Outpatient (REF) | payer BC, SELFPAY ==
[2022-10-09 04:44] LABS: HPV mRNA E6/E7 rflx Not Detected (Not Detected)
== END 2022-10-06 11:56 | disposition home or self-care (01) ==
LOC: HO.LNP 11:55
PROVIDERS: Visit Provider Advanced Practice Midwife
DX: Z01.419 Encounter for gynecological examination (general) (routine) without abnormal findings (principal); Z11.51 Encounter for screening for human papillomavirus (HPV)
CPT/HCPCS: 87624; 88142

== ENCOUNTER 2022-10-07 16:53 | Outpatient (REF) | payer BC, SELFPAY ==
--- NOTE | ~2022-10-07 | XR_ITS ---
EXAMINATION: XR HAND, RIGHT CLINICAL INFORMATION: Pain. COMPARISON: None available. TECHNIQUE: PA, lateral, and oblique views of the right hand. FINDINGS: There is mild loss of PIP and DIP joint spaces with mild periarticular spurring DIP joint 3rd digit and PIP joint 1st digit. No visible acute fracture, dislocation or subluxation seen. No bony erosive changes. There is mild soft tissue swelling DIP joint 3rd digit. XR/XR hand RT 2V IMPRESSION: Degenerative arthritic changes of right hand. No visible acute fracture or dislocation seen.
== END 2022-10-07 16:54 | disposition home or self-care (01) ==
LOC: HO.XRAY 16:53
PROVIDERS: PCP Internal Medicine; Visit Provider Internal Medicine
DX: M79.641 Pain in right hand (principal)
CPT/HCPCS: 73120

== ENCOUNTER 2022-10-08 13:11 | Outpatient (REF) | payer BC, SELFPAY ==
[2022-10-08 14:48] LABS: Potassium 4.9 mmol/L (3.3-5.1)
[2022-10-08 15:13] LABS: Thyroid Stimulating Hormone 1.15 uIU/mL (0.32-4.0)
[2022-10-08 15:17] LABS: Vitamin D 25-OH Total 44.4 ng/mL (>30)
== END 2022-10-08 13:12 | disposition home or self-care (01) ==
LOC: HO.LAB 13:11
PROVIDERS: PCP Internal Medicine; Visit Provider Internal Medicine
DX: E28.39 Other primary ovarian failure (principal); E21.3 Hyperparathyroidism, unspecified; E55.9 Vitamin D deficiency, unspecified; E87.5 Hyperkalemia; E04.2 Nontoxic multinodular goiter; E78.5 Hyperlipidemia, unspecified; R92.8 Other abnormal and inconclusive findings on diagnostic imaging of breast; Z79.899 Other long term (current) drug therapy
CPT/HCPCS: 36415; 82306; 84132; 84443

== ENCOUNTER 2023-03-10 15:47 | Outpatient (AMB) | payer BC, SELFPAY ==
[2023-03-10 15:57] VITALS: BP 126/80; BMI 23.2
--- NOTE | 2023-03-10 15:57 | A.OFFPC_ITS ---
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 Required: No Accompanied by: Self / Same As Patient Allergies Sulfa (Sulfonamide Antibiotics) Allergy (Intermediate, Verified 03/10/23 16:12) rash Medication List - Last Reconciled 03/10/23 by Mary Manzanares MD atorvastatin 20 mg PO BEDTIME 30 days cetirizine (Zyrtec) 10 mg PO DAILY PRN citalopram 10 mg PO DAILY estradiol 1 mg PO DAILY 30 days medroxyprogesterone Take 1 tab daily the first 12 days of every month orally daily; 12 days methylcellulose (laxative) (Citrucel) 500 mg PO DAILY 30 days ondansetron 4 mg PO Q6-8H PRN Tobacco use date assessed: 10/07/22 Dental Screening Dental Screen Date: 03/10/23 Did you have a dental visit in the last 12 months?: Yes Did you have a dental problem in the last 6 months where you did not have access to dental care?: No Was dental information given to patient?: Patient has dentist HPI HPI Comments History of Present Illness Details This is a 42-year-old female that comes for her physical exam. Mammogram done 2022 was normal. Pap smear done 2022 was normal with HPV negative. No chest pain or shortness of breath. [facility] Medical History Hypercalcemia Hyperkalemia Abnormal mammogram Hyperparathyroidism Mild major depression, single episode Disorder of bone and cartilage, unspecified Depression Chronic fatigue Mixed hyperlipidemia Multinodular thyroid Vitamin D deficiency Hyperlipidemia Transaminitis Premature ovarian failure Surgical History Hx of cervical polypectomy Hx of vaginal surgery Hx of colonoscopy Hx of biopsy Family History Father Arthritis of knee Hypothyroidism Atrial fibrillation Mother Diabetes Myocardial infarction Cardiovascular disease Maternal Grandmother Diabetes Maternal Uncle Diabetes Brother No problems noted. Brother No problems noted. Family/Other History of breast cancer Family/Other History of breast cancer Social History Household Members: Family Housing: House Are you a primary manager care to a significant other at home: No Do you presently have visiting nurse or other home services: No Alcohol intake: former Patient Tobacco Use Status: Never used Tobacco e-Cigarette/Vaping Use: Never Used Second Hand Smoke Exposure: No service: No Current occupational status: employed Current occupational exposures/hazards: No Sexual orientation: Straight/Heterosexual Gender identity: Female Cognitive needs: No Hearing needs: No Vision needs: No Female Reproductive History Menstrual Age of Menarche: 9 Questionnaire Thrive Questionnaire Date Thrive assessed: 07/10/22 NATA-7 AMB Questionnaire NATA-7 Date NATA - 7 assessed: 07/10/22 Source: Developed by Drs. Luis Bhatti, Darcie Porras, Santosh [place] and colleagues, with an educational teresita from [employer]. Review of Systems Const All systems reviewed & are unremarkable except as noted in HPI and below Eyes Reports no additional complaints, Denies change in vision and Denies other visual disturbances Card Denies chest pain at rest, Denies chest pain with activity, Denies edema, Denies irregular heart rhythm, Denies claudication, Denies dyspnea, Denies dyspnea on exertion, Denies orthopnea, Denies paroxysmal nocturnal dyspnea and Denies slow heart rate Resp Denies cough, Denies dyspnea and Denies dyspnea on exertion GI Denies abdominal pain, Denies change in bowel habits, Denies excessive flatus, Denies nausea and Denies vomiting Denies urinary incontinence, Denies urinary hesitancy and Denies urinary urgency Musc Denies abnormal gait, Denies atrophy, Denies deformity and Denies limited range of motion Skin/Breast Denies bleeding lesions, Denies changing lesions and Denies rash Neuro Denies abnormal gait, Denies behavioral changes, Denies confusion and Denies lack of coordination Psych Denies behavioral changes and Denies confusion Physical exam (Primary Care) Vital Signs: Last Vital Signs BP 126/80 03/10/23 15:57 BMI result Body Mass Index 23.2 Tobacco/Smoking Status: Tobacco use Status Tobacco use date assessed 10/07/22 03/10/23 16:01 Patient Tobacco Use Status Never used Tobacco 03/10/23 16:01 e-Cigarette/Vaping Use Never Used 03/10/23 16:01 Thrive Assessment: Date of Thrive Assessment Date Thrive assessed 07/10/22 03/10/23 16:01 Const General: No confusion Orientation/consciousness: patient oriented x3 and No confusion HENMT Head: Yes normal to inspection, Yes normocephalic and Yes atraumatic Ears: external ears normal Eyes General: appearance normal, both eyes and all related structures Eyelids: Yes eyelids normal Conjunctivae: conjunctivae normal Neck Neck: Yes normal visual inspection and Yes supple Resp Effort & Inspection: normal respiratory effort Auscultation: clear to auscultation bilaterally Cardio Jugular venous distension: no JVD Rate: regular rate Rhythm: regular rhythm Heart sounds: S1 normal heart sound present and S2 normal heart sound present GI Inspection: Yes normal to inspection Palpation (GI): Soft to palpation and nontender Auscultation: normal bowel sounds Skin General skin exam: no rashes or lesions noted Neuro General: patient oriented x3, no focal motor deficits and No confusion Extrem General: Yes full ROM Psych Appearance: grossly normal Assessment and Plan Assessment & Plan (1) Physical exam: Code(s): Z00.00 - Encounter for general adult medical examination without abnormal findings Plan: Repeat in a year Orders: Orders Vitamin D 25-OH Total Today E55.9 - Vitamin D deficiency, unspecified Lipid Panel Today E78.5 - Hyperlipidemia, unspecified Comprehensive [place]. Panel Fast Today Z00.00 - Encounter for general adult medical examination without abnormal findings Coding Level of Care Code Est Pt Prev Care 40-64y(33912) Diagnoses Physical exam Z00.00 Time Spent (min) 30
== END 2023-03-10 16:20 | disposition home or self-care (01) ==
PROVIDERS: PCP Internal Medicine; Visit Provider Internal Medicine
DX: Z00.00 Encounter for general adult medical examination without abnormal findings (principal)
CPT/HCPCS: 99396

== ENCOUNTER 2023-03-23 11:58 | Outpatient (REF) | payer BC, SELFPAY | END 2023-03-23 11:59 | disposition home or self-care (01) | LOC: HO.US 11:58 | PROVIDERS: PCP Internal Medicine; Visit Provider Internal Medicine | DX: E04.2 Nontoxic multinodular goiter (principal) | CPT/HCPCS: 76536 ==

== ENCOUNTER 2023-03-30 09:43 | Outpatient (AMB) | payer BC, SELFPAY ==
--- NOTE | 2023-03-30 10:45 | A.OFFVIS_ITS ---
Intake Vital Signs 03/30/23 10:46 Height 5 ft 3 in Weight 127 lb 13.89 oz BMI 22.6 BP 117/69 Blood Pressure Location Lt brachial Position Sitting Pulse 80 Intake Visit Reasons: 8 month follow up Intake Note: Nan presents in the office as a 8 month follow up. CC: No concerns today! Social Service Manager Required: Yes Social Service Manager Name: Mady [id number] Allergies Sulfa (Sulfonamide Antibiotics) Allergy (Intermediate, Verified 03/30/23 10:58) rash HPI 8 month follow up HPI Details 42 yr old f here for f/u for NAFLD RECAP: seen for abn LFt which had normalized drinks wine rare occasions non smoker no FH of liver disease, no FH of CRC, IBD no blood transfusions LABS: AST 25, ALT 70, otherwise LFt nml, LDL 177, HDL 48 Hep C and B neg 2018 rept LABs with ALT mildly raised 34 [place], SMA a1at and other serologies incl for Hep b,c neg LFT 02/2021--nml LFT 08/2021: bili 1.1 , ALT 56 LFT 06/05: nml LFT LFT 09/2022-- nml LFT initial US with liver echogenicity, low risk of fibrosis, trace ascites ? colonsocopy was nml, apart from small internal hemorrhoids US 08/2021--- nml appearing liver, elastography high probability of being normal US 09/2022--- fatty liver, elastography median stiffness 1.42 INTERIM: She is doing well no major complaints no nausea, appetite is good she is still drinking coffee daily no jaundice or dark urine reviewed etiology of PATEL and NAFLD again incl genetics, diet and environment EXAM: GENERAL: The patient is well developed and nontoxic. VITAL SIGNS:see workflow HEENT: Nonicteric sclerae, PERRLA, EOMI. Oropharynx clear. Moist mucous membranes. Conjunctivae appear well perfused. No thyroid mass. CHEST: Chest wall is nontender. HEART: Regular rate and rhythm without murmurs. LUNGS: Clear to auscultation bilaterally. ABDOMEN: Soft, positive bowel sounds, nontender, no organomegaly.no flank tenderness SKIN: No rash, no excessive bruising, petechiae, or purpura. NEUROLOGIC: Cranial nerves II-XII intact without motor/sensory deficit. psych: nml affect Assessment & Plan (1) Transaminitis- LFt nml on several oc casions, has NAFLD ? ? ? PLAN: 1/ rept LFT now, Us in 1 yr 2. cont with statin 3/ advised on healthy living, diet, exer cise, and avoiding greasy foods, fries PFSH Medical History Hypercalcemia Hyperkalemia Abnormal mammogram Hyperparathyroidism Mild major depression, single episode Disorder of bone and cartilage, unspecified Depression Chronic fatigue Mixed hyperlipidemia Multinodular thyroid Vitamin D deficiency Hyperlipidemia Transaminitis Premature ovarian failure Surgical History Hx of cervical polypectomy Hx of vaginal surgery Hx of colonoscopy Hx of biopsy Family History Father Arthritis of knee Hypothyroidism Atrial fibrillation Mother Diabetes Myocardial infarction Cardiovascular disease Maternal Grandmother Diabetes Maternal Uncle Diabetes Brother No problems noted. Brother No problems noted. Family/Other History of breast cancer Family/Other History of breast cancer Social History Household Members: Family Housing: House Are you a primary continuum of care manager to a significant other at home: No Do you presently have visiting nurse or other home services: No Alcohol intake: former Patient Tobacco Use Status: Never used Tobacco e-Cigarette/Vaping Use: Never Used Second Hand Smoke Exposure: No service: No Current occupational status: employed Current occupational exposures/hazards: No Sexual orientation: Straight/Heterosexual Gender identity: Female Cognitive needs: No Hearing needs: No Vision needs: No Female Reproductive History Menstrual Age of Menarche: 9 Physical Exam Vital Signs: Last Vital Signs Pulse 80 03/30/23 10:46 BP 117/69 03/30/23 10:46 BMI result Body Mass Index 22.6 Assessment & Plan Assessment & Plan (1) Nonalcoholic steatohepatitis (PATEL): Code(s): K75.81 - Nonalcoholic steatohepatitis (PATEL) Orders: Orders Complete Blood Count Auto Diff Today K75.81 - Nonalcoholic steatohepatitis (PATEL) Comprehensive Met. Panel Today K75.81 - Nonalcoholic steatohepatitis (PATEL) Prothrombin Time INR Today K75.81 - Nonalcoholic steatohepatitis (PATEL) Coding Level of Care Code Est Pt Level 3 (29512) Diagnoses Nonalcoholic steatohepatitis (PATEL) K75.81
[2023-03-30 10:46] VITALS: BP 117/69; PULSE 80; BMI 22.6
== END 2023-03-30 11:27 | disposition home or self-care (01) ==
PROVIDERS: PCP Internal Medicine; Visit Provider Internal Medicine Gastroenterology
DX: K75.81 Nonalcoholic steatohepatitis (NASH) (principal)
CPT/HCPCS: 99213

== ENCOUNTER → 2023-03-30 09:43 | Outpatient (BNVA) | payer BC, SELFPAY | PROVIDERS: PCP Internal Medicine; Visit Provider Internal Medicine Gastroenterology ==

== ENCOUNTER 2023-04-03 13:33 | Outpatient (AMB) | payer BC, SELFPAY ==
[2023-04-03 13:44] VITALS: BP 116/74; BMI 24.1
--- NOTE | 2023-04-03 13:44 | A.OFFVIS_ITS ---
Intake Vital Signs 04/03/23 13:44 Height 5 ft 3 in Weight 136 lb BMI 24.1 BP 116/74 Intake Visit Reasons: HRT consult/ivorian Intake Note: The patient agreed to use of a medical assisting program director during this encounter. Scribed for [facility] by Adelina Gray medical assisting program director, on 04/03/2023 at 1:59 pm EST. Client Services Representative Required: Yes Client Services Representative Language: Layer Out Plate Glass Name: Elizabeth Meza MARY Information Interpreted: non-clinical & clinical Accompanied by: Self / Same As Patient Allergies Sulfa (Sulfonamide Antibiotics) Allergy (Intermediate, Verified 04/03/23 13:49) rash HPI HPI Comments History of Present Illness Details She is here for HRT counseling because her new Medical [facility] does not provider theses services. Hx. of POF. Reports she was doing well on her Rx in the past. She denies any contraindications to HRT such as: migraines with aura, history of DVT or pulmonary emboli, high blood pressure, liver disease, thrombolic disorders, Lupus, +VIPUL, or smoking. [facility] Medical History Hypercalcemia Hyperkalemia Abnormal mammogram Hyperparathyroidism Mild major depression, single episode Disorder of bone and cartilage, unspecified Depression Chronic fatigue Mixed hyperlipidemia Multinodular thyroid Vitamin D deficiency Hyperlipidemia Transaminitis Premature ovarian failure Surgical History Hx of cervical polypectomy Hx of vaginal surgery Hx of colonoscopy Hx of biopsy Family History Father Arthritis of knee Hypothyroidism Atrial fibrillation Mother Diabetes Myocardial infarction Cardiovascular disease Maternal Grandmother Diabetes Maternal Uncle Diabetes Brother No problems noted. Brother No problems noted. Family/Other History of breast cancer Family/Other History of breast cancer Social History Household Members: Family Housing: House Are you a primary day care provider to a significant other at home: No Do you presently have visiting nurse or other home services: No Alcohol intake: former Patient Tobacco Use Status: Never used Tobacco e-Cigarette/Vaping Use: Never Used Second Hand Smoke Exposure: No service: No Current occupational status: employed Current occupational exposures/hazards: No Sexual orientation: Straight/Heterosexual Gender identity: Female Cognitive needs: No Hearing needs: No Vision needs: No Female Reproductive History Menstrual Age of Menarche: 9 Physical Exam Vital Signs: Last Vital Signs BP 116/74 04/03/23 13:44 BMI result Body Mass Index 24.1 Const General: cooperative, healthy appearing, comfortable, no acute distress, well developed, alert and awake Assessment & Plan Assessment & Plan (1) Counseling for hormone replacement therapy: Code(s): Z71.89 - Other specified counseling Plan: Discussed: Benefits and the risks: The benefits discussed with the patient including but not limited to: treatment, improvement or prevention of osteoporosis, vaginal atrophy, hot flashes and lowering the risk of colon cancer. The risks discussed with the patient includes but not limited to: deep vein thrombosis, pulmonary embolism, strokes, myocardial infarction, and undiagnosed breast cancer with positive receptors potential for aggressive tumor growth and subsequent metastatic disease. Warnings: go to ER if and loss of vision/blindness, severe headache, chest pain or difficulty breathing, severe abdominal pain, or any pain or swelling in an extremity. Rx sent to pharmacy. The patient verbalized understanding, all questions answered. All of her questions and concerns were addressed to the best of my ability and shared decision making. She is agreeable to plan of care. RTO 6 months for her annual obstetrician gynecologist. Medications: New estradiol 1 mg PO DAILY 90 tabs 1RF medroxyprogesterone (Provera) take one tablet the first day of the month for 12 days, then repeat monthly 10 mg PO DAILY 10 days 60 tabs 0RF Coding Level of Care Code Est Pt Level 3 (27874) Diagnoses Counseling for hormone replacement therapy Z71.89
== END 2023-04-03 14:12 | disposition home or self-care (01) ==
PROVIDERS: PCP Internal Medicine; Visit Provider Advanced Practice Midwife
DX: Z71.89 Other specified counseling (principal)
CPT/HCPCS: 99213

== ENCOUNTER → 2023-04-03 13:33 | Outpatient (BNVA) | payer BC, SELFPAY | PROVIDERS: PCP Internal Medicine; Visit Provider Advanced Practice Midwife ==

== ENCOUNTER 2023-05-18 11:13 | Outpatient (REF) | payer BC, SELFPAY ==
[2023-05-18 12:40] LABS: Cholesterol 165 mg/dL (<200); HDL Cholesterol 56 mg/dL (>40); LDL Cholesterol Calculated 71 mg/dL (<100); Triglycerides 193 mg/dL (<150)
[2023-05-18 12:56] LABS: Free T4 (Free Thyroxine) 0.78 ng/dL (0.71-1.85)
[2023-05-22 18:13] LABS: LDL Cholesterol Direct 77 mg/dL (<100)
[2023-05-22 23:13] LABS: Estradiol Ultra Sensitive 114 pg/mL
[2023-05-23 01:47] LABS: Sex Hormone Binding Globulin 132 nmol/L (17-124)
== END 2023-05-18 11:14 | disposition home or self-care (01) ==
LOC: HO.LAB 11:13
PROVIDERS: PCP Internal Medicine; Visit Provider Internal Medicine
DX: E28.39 Other primary ovarian failure (principal); E04.2 Nontoxic multinodular goiter
CPT/HCPCS: 36415; 80061; 82670; 83721; 84270; 84439; 84443

== ENCOUNTER 2023-05-20 15:03 | Outpatient (AMB) | payer BC, SELFPAY ==
--- NOTE | 2023-05-20 15:16 | MHC.OFFVIS ---
Intake Vital Signs 05/20/23 15:17 Height 5 ft 3 in Weight 142 lb 3.17 oz BMI 25.2 BP 118/70 Blood Pressure Location Lt brachial Position Sitting Pulse 90 Pulse Source Pulse Oximeter Intake Visit Reasons: Nontoxic multinodular goiter Intake Note: Patient present today for Nontoxic multi nodular goiter follow up visit. Natural Sciences Manager Required: Yes Natural Sciences Manager Language: Ct Technician Name: Liv medical staff Information Interpreted: non-clinical & clinical Accompanied by: Self / Same As Patient Allergies Sulfa (Sulfonamide Antibiotics) Allergy (Intermediate, Verified 05/20/23 15:21) rash Medication List - Last Reconciled 05/20/23 by Luis Smith MD ascorbate calcium (vitamin C) 500 mg PO DAILY atorvastatin 20 mg PO BEDTIME 30 days cetirizine (Zyrtec) 10 mg PO DAILY PRN citalopram 10 mg PO DAILY estradiol 1 mg PO DAILY medroxyprogesterone (Provera) 10 mg PO DAILY 12 days methylcellulose (laxative) (Citrucel) 500 mg PO DAILY 30 days HPI HPI Comments History of Present Illness Details 42 YO F with a PMHx of premature ovarian failure/primary ovarian insufficiency, HLD and a multinodular thyroid who is seen in F/U.. The patient last saw Dr. Hennessy on 10/08/2022 1. Thyroid Nodule: She was noted to have a large L sided thyroid nodule in 2012. She underwent an FNA biopsy of this nodule in 2012 by IR. Results were benign, and consistent with a benign follicular nodule. She has had frequent surveillance US since that time. She had a repeat thyroid US with this nodule appearing unchanged. She opted to continue with yearly surveillance US. Her TSH has remained WNL. Currently denies any dysphagia or hoarseness of voice. Denies sensation of swelling in the neck or difficulty breathing while lying flat. Denies any tenderness in the neck. Denies symptoms of hyper or hypothyroidism. Denies any history of head or neck irradiation. Denies any family history of thyroid cancer. 2. HLD: On recent lab testing she was noted to have HLD. LDL has been significantly elevated to >190 since 2019. She was never trialed a Statin. She does have a FamHx of heart disease in her Mother. After our last visit she has made significant changes to her diet including limiting saturated fat and fried foods. She was referred to GI who had no objection to her starting a Statin. She was started on Atorvastatin 20 mg PO daily, and LDL is now at goal. 3. Premature Ovarian Failure: She reports experiencing menopause many years ago. She has followed with Dr. Mendoza and does say that she was recommended to take HRT, but refused. She had labs repeated which confirmed menopause with elevated FSH/LH and low Estradiol. The remainder of her pituitary panel was WNL. She did have DEXA completed 07/2018 which was WNL. She had another DEXA 08/02/2020 which was WNL but did reveal significant decline in her Hips. She is on Vitamin D 1000 IU daily and Vitamin D levels are WNL. She takes Calcium carbonate 600 mg PO BID. She was evaluated by Gynecology with no objections to HRT. She did have a mammogram in Jul 2020 which revealed scattered calcifications. Repeat mammogram with similar findings. She was referred to Heme-Onc who have no objection to starting HRT. She was found to have an endocervical polyp, and underwent resection of this 10/2021 with benign results. She was then started on Estradiol 1 mg PO daily with Medroxyprogesterone 10 mg PO the 1st 12 days of every month. She reports feeling well on this dose, and denies any symptoms of blood clot. 4. Hyperparathyroidism: Labs were concerning for hyperparathyroidism with labs 07/23/2021 Calcium 10.5, Albumin 4.5, PTH 46 and Vitamin D 47. She is currently undergoing workup for this. She currently is not taking any calcium. She does drink 8 oz of almond milk per day, but has no other source of dietary calcium. She takes Vitamin D 1000 IU daily. DEXA 08/02/2020: FINDINGS: AP SPINE L1-L4: Current: BMD 1.173 g/cm2, Z-score 0.1, T-score -0.1, normal, 3.1% decrease from baseline (<5% change is not significant). Baseline: BMD 1.211 g/cm2. LEFT FEMUR, NECK: Current: BMD 1.020 g/cm2, Z-score 0.5, T-score -0.1, normal. Baseline: BMD 1.074 g/cm2. LEFT FEMUR, TOTAL: Current: BMD 1.075 g/cm2, Z-score 0.9, T-score 0.5, normal, 4.0% decrease from baseline (<5% change is not significant). Baseline: BMD 1.120 g/cm2. Thyroid US: 03/12/2022 Right Thyroid Lobe: 3.5 x 1.1 x 1.1 cm, volume 2.2 mL. Previously 3.7 x 0.9 x 1.4 cm, volume 2.4 mL. Parenchyma: The gland echotexture is homogeneous. Thyroid vascularity is normal. Left Thyroid Lobe: 4.7 x 1.6 x 1.9 cm, volume 7.5 mL. Previously 4.6 x 1.3 x 1.8 cm, volume 5.6 mL. Parenchyma: The gland echotexture is homogeneous. Thyroid vascularity is normal. Isthmus: 0.2 cm in maximum AP dimension. Previously 0.2 cm. Estimated total number of nodules greater than or equal to 1 cm: 1. Technical Documentation Specialist nodules are described as follows: 1.? Location: Left mid. ?? ? Size: 3.6 x 1.3 x 1.9 cm, volume 4.7 mL. ?? ? Previously: 3.6 x 1.8 x 1.3 cm, volume 4.3 mL. ?? ? Nodule characteristics: ?? ? Composition: Solid/almost completely solid (2). ?? ? Echogenicity: Isoechoic (1). ?? ? Shape: Not taller than wide (0). ?? ? Margins: Smooth (0). ?? ? Echogenic Foci: None (0).? ACR TI-RADS total points: 3 Previous: 3 ?? ? ACR TI-RADS category: 3 Previous: 3 ? Significant change in size (>/= 20% in 2 dimensions and minimal increase of 2 mm or 50% or greater increase in volume): No ?? ? Change in features: No ?? ? Change in ACR TI-RADS risk category: No 2.? Location: Right mid. ?? ? Size: 0.5 x 0.3 x 0.4 cm, volume 0.03 mL. ?? ? Previously: 0.4 x 0.2 x 0.1 cm, volume 0.01 mL. ?? ? Nodule characteristics: ?? ? Composition: Solid/almost completely solid (2). ?? ? Echogenicity: Hyperechoic (1). ?? ? Shape: Not taller than wide (0). ?? ? Margins: Smooth (0). ?? ? Echogenic Foci: None (0).? ACR TI-RADS total points: 3 Previous: 3 ?? ? ACR TI-RADS category: 3 Previous: 3 ? Significant change in size (>/= 20% in 2 dimensions and minimal increase of 2 mm or 50% or greater increase in volume): Yes ?? ? Change in features: No ?? ? Change in ACR TI-RADS risk category: No NODES: No lymphadenopathy is seen in the tissue surrounding the thyroid gland. Labs: Laboratory Tests 06/04/21 05/26/22 05/26/22 12:29 10:43 10:43 Sodium Potassium Creatinine Estimated GFR Albumin Triglycerides Cholesterol LDL Cholesterol Di rect 80 LDL Cholesterol, C alc HDL Cholesterol 25-OH Vitamin D To don TSH 1.12 Free T4 0.84 Estradiol Ultra LC MSMS 3 FSH 161.6 H Luteinizing Hormon e 69.3 Sex Hormone Bind G lob PTH Intact Calcium (PTH Intac t) 05/26/22 05/26/22 09/26/22 10:43 10:43 09:32 Sodium Potassium Creatinine Estimated GFR Albumin Triglycerides 142 Cholesterol 154 LDL Cholesterol Di rect LDL Cholesterol, C alc 77 HDL Cholesterol 49 25-OH Vitamin D To don 33.1 43.0 TSH 1.10 Free T4 0.79 Estradiol Ultra LC MSMS FSH Luteinizing Hormon e Sex Hormone Bind G lob PTH Intact 59 Calcium (PTH Intac t) 9.3 09/26/22 10/06/22 09:32 11:45 Sodium 141 Potassium 5.2 H Creatinine 0.90 Estimated GFR > 60 Albumin 4.4 Triglycerides Cholesterol LDL Cholesterol Di rect LDL Cholesterol, C alc HDL Cholesterol 25-OH Vitamin D To don TSH Free T4 Estradiol Ultra LC MSMS 63 FSH 42.8 Luteinizing Hormon e 19.2 Sex Hormone Bind G lob 95 PTH Intact 73 Calcium (PTH Intac t) 9.5 PFSH Medical History Hypercalcemia Hyperkalemia Abnormal mammogram Hyperparathyroidism Mild major depression, single episode Disorder of bone and cartilage, unspecified Depression Chronic fatigue Mixed hyperlipidemia Multinodular thyroid Vitamin D deficiency Hyperlipidemia Transaminitis Premature ovarian failure Surgical History Hx of cervical polypectomy Hx of vaginal surgery Hx of colonoscopy Hx of biopsy Family History Father Arthritis of knee Hypothyroidism Atrial fibrillation Mother Diabetes Myocardial infarction Cardiovascular disease Maternal Grandmother Diabetes Maternal Uncle Diabetes Brother No problems noted. Brother No problems noted. Family/Other History of breast cancer Family/Other History of breast cancer Social History Household Members: Family Housing: House Are you a primary sub acute care nurse to a significant other at home: No Do you presently have visiting nurse or other home services: No Alcohol intake: former Patient Tobacco Use Status: Never used Tobacco e-Cigarette/Vaping Use: Never Used Second Hand Smoke Exposure: No service: No Current occupational status: employed Current occupational exposures/hazards: No Sexual orientation: Straight/Heterosexual Gender identity: Female Cognitive needs: No Hearing needs: No Vision needs: No Female Reproductive History Menstrual Age of Menarche: 9 Physical Exam Vital Signs: Last Vital Signs Pulse 90 05/20/23 15:17 BP 118/70 05/20/23 15:17 BMI result Body Mass Index 25.2 Const Other: Thyroid gland is normal size weighs about 15 g. There are no thyroid nodules palpated Assessment & Plan Assessment & Plan (1) Multinodular thyroid: Code(s): E04.2 - Nontoxic multinodular goiter Plan: This is a 42-year-old female with history multinodular goiter status post FNA of left thyroid nodule with benign cytology and stable size on repeat ultrasound. She appears to be clinically biochemically euthyroid. At this point, patient returned to the care of her primary care provider. Perhaps repeat thyroid ultrasound should be done about 2-3 years time. She returned back to endocrinology should be any change in the size or characteristics of the nodule (2) Hyperlipidemia: Code(s): E78.5 - Hyperlipidemia, unspecified Qualifiers: Hyperlipidemia type: unspecified Qualified Code(s): E78.5 - Hyperlipidemia, unspecified Plan: Currently at goal on statin. Patient can follow up with primary care provider (3) Premature ovarian failure: Code(s): E28.39 - Other primary ovarian failure Plan: Currently on estradiol and progesterone. Can follow up with PCP and blueprint clerk (4) Hyperparathyroidism: Code(s): E21.3 - Hyperparathyroidism, unspecified Plan: Appears to have resolved Coding Level of Care Code Est Pt Level 3 (64069) Diagnoses Multinodular thyroid E04.2 Hyperlipidemia, unspecified hyperlipidemia type E78.5 Hyperlipidemia type: unspecified Premature ovarian failure E28.39 Hyperparathyroidism E21.3
[2023-05-20 15:17] VITALS: BP 118/70; PULSE 90; BMI 25.2
== END 2023-05-20 16:06 | disposition home or self-care (01) ==
PROVIDERS: PCP Internal Medicine; Visit Provider Internal Medicine Endocrinology, Diabetes & Metabolism
DX: E04.2 Nontoxic multinodular goiter (principal); E78.5 Hyperlipidemia, unspecified; E28.39 Other primary ovarian failure; E21.3 Hyperparathyroidism, unspecified
CPT/HCPCS: 99213

== ENCOUNTER → 2023-05-20 15:03 | Outpatient (BNVA) | payer BC, SELFPAY | PROVIDERS: PCP Internal Medicine; Visit Provider Internal Medicine Endocrinology, Diabetes & Metabolism ==

== ENCOUNTER 2023-06-29 10:23 | Outpatient (REF) | payer BC, SELFPAY ==
[2023-06-29 10:32] LABS: MANUAL DIFF FLAG NO
[2023-06-29 11:22] LABS: Basophils Absolute Auto 0.1 X10*3/uL (0.0-0.2); Basophils Percent Auto 0.9 % (0-2); Eosinophils Absolute Auto 0.1 X10*3/uL (0.0-0.4); Hematocrit 39.1 % (37.0-47.0); Hemoglobin 12.9 g/dl (12.0-16.0); Imm Gran Abs Auto 0.02 X10*3/uL (0.00-0.03); Imm Gran Pct Auto 0.3 % (0.0-0.4); Lymphocytes Absolute Auto 2.6 X10*3/uL (1.2-4.9); Lymphocytes Percent Auto 40.3 % (20-40); Mean Corpuscular Hemoglobin 30.7 pg (27.0-33.0); Mean Corpuscular Volume 93.1 fL (80.0-98.0); Mean Platelet Volume 10.1 fL (9.4-12.3); Monocytes Absolute Auto 0.4 X10*3/uL (0.1-1.2); Monocytes Percent Auto 6.3 % (2-11); Neutrophils Absolute Auto 3.2 x10*3/uL (2.0-8.3); Neutrophils Percent Auto 50.2 % (45-73); Platelet Count 269 X10*3/uL (160-400); Red Cell Distribution Width 12.4 % (11.0-16.0); White Blood Count 6.5 X10*3/uL (4.8-10.8)
[2023-06-29 11:42] LABS: INTERNATIONAL NORM RATIO 0.9 (0.9-1.1); Prothrombin Time 10.6 SEC (11.1-13.3)
[2023-06-29 11:43] LABS: Alanine Aminotransferase 19 U/L (0-31); Albumin Level 4.1 g/dL (3.5-5.0); Alkaline Phosphatase 60 U/L (39-117); Anion Gap 11 (12-20); Aspartate Amino Transferase 18 U/L (5-31); Bilirubin Total 0.7 mg/dL (0.0-1.0); Blood Urea Nitrogen 15 mg/dL (9-16); Calcium 9.7 mg/dL (8.4-10.2); Carbon Dioxide 27 mmol/L (22-29); Chloride 107 mmol/L (96-108); Estimated Glomerular Filt Rate > 60; Glucose Random 88 mg/dL (60-115); Potassium 4.7 mmol/L (3.3-5.1); Sodium 140 mmol/L (135-145); Total Protein 7.4 g/dL (6.5-8.0)
== END 2023-06-29 10:24 | disposition home or self-care (01) ==
LOC: HO.LAB 10:23
PROVIDERS: Internal Medicine Gastroenterology; PCP Internal Medicine; Visit Provider Internal Medicine
DX: K75.81 Nonalcoholic steatohepatitis (NASH) (principal)
CPT/HCPCS: 36415; 80053; 85025; 85610

== ENCOUNTER 2023-07-13 15:44 | Outpatient (AMB) | payer BC, SELFPAY ==
[2023-07-13 15:49] VITALS: BP 126/70; BMI 25.0
--- NOTE | 2023-07-13 15:49 | A.OFFPC_ITS ---
Vital Signs 07/13/23 15:49 Height 5 ft 3 in Weight 141 lb BMI 25.0 BP 126/70 Blood Pressure Location Lt brachial Position Sitting Intake Visit Reasons: thyroid, lipids Intake Note: Patient here for a follow up thyroid, lipids General Education Instructor Required: No Accompanied by: Self / Same As Patient Allergies Sulfa (Sulfonamide Antibiotics) Allergy (Intermediate, Verified 07/13/23 16:09) rash Medication List - Last Reconciled 07/13/23 by Mary Manzanares MD ascorbate calcium (vitamin C) 500 mg PO DAILY atorvastatin 20 mg PO BEDTIME 30 days cetirizine (Zyrtec) 10 mg PO DAILY PRN citalopram 10 mg PO DAILY estradiol 1 mg PO DAILY medroxyprogesterone (Provera) 10 mg PO DAILY 12 days methylcellulose (laxative) (Citrucel) 500 mg PO DAILY 30 days Tobacco use date assessed: 07/13/23 Dental Screening Dental Screen Date: 07/13/23 Did you have a dental visit in the last 12 months?: Yes Did you have a dental problem in the last 6 months where you did not have access to dental care?: No Was dental information given to patient?: Patient has dentist HPI HPI Comments History of Present Illness Details This is a 43-year-old female with mild major depression, constipation, allergic rhinitis and mixed hyperlipidemia that comes today for follow-up on her conditions. Depression stable with citalopram. Constipation well controlled with Citrucel as needed. On antihistamines as needed for her allergic rhinitis. Cholesterol stable with statins and reports no side effect. No chest pain or shortness of breath. [facility] Medical History (Updated 07/13/23 @ 18:18 by Mary Manzanares MD) Hypercalcemia Hyperkalemia Abnormal mammogram Hyperparathyroidism Mild major depression, single episode Disorder of bone and cartilage, unspecified Depression Chronic fatigue Mixed hyperlipidemia Multinodular thyroid Vitamin D deficiency Hyperlipidemia Transaminitis Premature ovarian failure Surgical History Hx of cervical polypectomy Hx of vaginal surgery Hx of colonoscopy Hx of biopsy Family History Father Arthritis of knee Hypothyroidism Atrial fibrillation Mother Diabetes Myocardial infarction Cardiovascular disease Maternal Grandmother Diabetes Maternal Uncle Diabetes Brother No problems noted. Brother No problems noted. Family/Other History of breast cancer Family/Other History of breast cancer Social History Household Members: Family Housing: House Are you a primary patient care specialist to a significant other at home: No Do you presently have visiting nurse or other home services: No Alcohol intake: former Patient Tobacco Use Status: Never used Tobacco e-Cigarette/Vaping Use: Never Used Second Hand Smoke Exposure: No service: No Current occupational status: employed Current occupational exposures/hazards: No Sexual orientation: Straight/Heterosexual Gender identity: Female Cognitive needs: No Hearing needs: No Vision needs: No Female Reproductive History Menstrual Age of Menarche: 9 Questionnaire PHQ-9 Over the last 2 weeks, how often have you been bothered by any of the following problems? 1. Little interest or pleasure in doing things: not at all 2. Feeling down, depressed, or hopeless: not at all 3. Trouble falling or staying asleep, or sleeping too much: not at all 4. Feeling tired or having little energy: not at all 5. Poor appetite or overeating: not at all 6. Feeling bad about yourself - or that you are a failure or have let yourself or your family down: not at all 7. Trouble concentrating on things, such as reading the newspaper or watching television: not at all 8. Moving or speaking so slowly that other people could have noticed. Or the opposite - being so fidgety or restless that you have been moving around a lot more than usual: not at all 9. Thoughts that you would be better off or of hurting yourself in some way: not at all Total score: 0 Depression Screening Interpretation: Negative Depression Screening Done: Yes 11276 - PHQ-9 Billing: Yes Source: Developed by Drs. Luis Bhatti, Darcie Porras, Santosh Colorado and colleagues, with an educational teresita from [employer]. Thrive Questionnaire Date Thrive assessed: 07/13/23 I am a: Patient What is your living situation today?: I have a steady place to live Within the past 12 months, did the food you bought not last and you didn't have the money to get more?: Never true Within the past 12 months, did you worry whether your food would run out before you got money to buy more?: Never true Do you have trouble paying for medicines?: No Do you have trouble getting transportation to medical appointments?: No Do you have trouble paying your heating and electricity bill?: No Do you have trouble taking care of your child, family member or friend?: No Do you have trouble with day-to-day activities such as bathing, preparing meals, shopping, managing finances, etc.?: No Are you currently unemployed and looking for a job?: No Are you interested in more education?: No Please select the resources that you would like help with: None Currently or been in a relationship where the following occur: no concerns reported THRIVE Score: 0 AUDIT C Alcohol Use Questionnaire (AUDIT-C) 1. How often do you have a drink containing alcohol?: Never Total Score: 0 NATA-7 AMB Questionnaire NATA-7 Date NATA - 7 assessed: 07/13/23 Feeling nervous, anxious, or on edge: 0 = Not at all Not being able to stop or control worryin = Not at all Worrying too much about different things: 0 = Not at all Trouble relaxin = Not at all Being so restless that it is hard to sit still: 0 = Not at all Becoming easily annoyed or irritable: 0 = Not at all Feeling afraid as if something awful might happen: 0 = Not at all Total NATA-7 score (0-4 normal; 5-9 mild; 10-14 moderate; 15-21 severe): 0 Source: Developed by Drs. Luis Bhatti, Darcie Porras, Santosh Colorado and colleagues, with an educational teresita from [employer]. NATA-7 Assessment Billing NATA-7 Assessment Tool: NATA-7 Assessment 10433 Review of Systems Const All systems reviewed & are unremarkable except as noted in HPI and below Eyes Reports no additional complaints, Denies change in vision and Denies other visual disturbances Card Denies chest pain at rest, Denies chest pain with activity, Denies edema, Denies irregular heart rhythm, Denies claudication, Denies dyspnea, Denies dyspnea on exertion, Denies orthopnea, Denies paroxysmal nocturnal dyspnea and Denies slow heart rate Resp Denies cough, Denies dyspnea and Denies dyspnea on exertion GI Denies abdominal pain, Denies change in bowel habits, Denies excessive flatus, Denies nausea and Denies vomiting Denies urinary incontinence, Denies urinary hesitancy and Denies urinary urgency Musc Denies abnormal gait, Denies atrophy, Denies deformity and Denies limited range of motion Skin/Breast Denies bleeding lesions, Denies changing lesions and Denies rash Neuro Denies abnormal gait, Denies behavioral changes and Denies lack of coordination Psych Denies behavioral changes Physical exam (Primary Care) Vital Signs: Last Vital Signs BP 126/70 07/13/23 15:49 BMI result Body Mass Index 25.0 Tobacco/Smoking Status: Tobacco use Status Tobacco use date assessed 07/13/23 07/13/23 15:55 Patient Tobacco Use Status Never used Tobacco 07/13/23 15:55 e-Cigarette/Vaping Use Never Used 07/13/23 15:55 PHQ-9: PHQ-9 Score PHQ-9: Total score 0 07/13/23 16:14 Depression Screening Interpretation: Negative Thrive Assessment: Date of Thrive Assessment Date Thrive assessed 07/13/23 07/13/23 15:55 Currently or been in a relationship where the following occur: no concerns reported Eyes General: appearance normal, both eyes and all related structures Eyelids: Yes eyelids normal Conjunctivae: conjunctivae normal Neck Neck: Yes normal visual inspection and Yes supple Resp Effort & Inspection: normal respiratory effort Auscultation: clear to auscultation bilaterally Cardio Jugular venous distension: no JVD Rate: regular rate Rhythm: regular rhythm Heart sounds: S1 normal heart sound present and S2 normal heart sound present Extrem General: Yes full ROM Office Procedures Flu Questionnaire Does the patient have a severe egg allergy?: No Immunizations flu vacc [id number] 6mos up(PF) 60 mcg(15 mcgx4)/0.5 mL IM syringe Performing Provider: Mary Manzanares MD [facility] [place] [facility] Documented (not given) by: MARY Kemp on 07/13/23 15:59 Reason Not Given: Received Previously Assessment and Plan Assessment & Plan (1) Mild recurrent major depression: Code(s): F33.0 - Major depressive disorder, recurrent, mild Plan: Continue citalopram. (2) Mixed hyperlipidemia: Code(s): E78.2 - Mixed hyperlipidemia Plan: Continue statins. (3) Constipation: Code(s): K59.00 - Constipation, unspecified Plan: Continue Citrucel. (4) Allergic rhinitis: Code(s): J30.9 - Allergic rhinitis, unspecified Plan: Continue antihistamines as needed. Orders: Orders Influenza [id number] Immunization Today Z23 - Encounter for immunization Coding Level of Care Code Est Pt Level 4 (64609) Diagnoses Mild recurrent major depression F33.0 Mixed hyperlipidemia E78.2 Constipation K59.00 Allergic rhinitis J30.9 Additional Codes NATA-7 Assessment Billing - NATA-7 Assessment Tool: NATA-7 Assessment 14838 ([id number]) Time Spent (min) 23
== END 2023-07-13 16:16 | disposition home or self-care (01) ==
PROVIDERS: PCP Internal Medicine; Visit Provider Internal Medicine
DX: E78.2 Mixed hyperlipidemia (principal); K59.00 Constipation, unspecified; J30.9 Allergic rhinitis, unspecified
CPT/HCPCS: 99214

== ENCOUNTER 2023-08-24 13:25 | Outpatient (REF) | payer BC, SELFPAY | END 2023-08-24 13:26 | disposition home or self-care (01) | LOC: HO.MAMMO 13:25 | PROVIDERS: PCP Internal Medicine; Visit Provider Internal Medicine | DX: Z12.31 Encounter for screening mammogram for malignant neoplasm of breast (principal) | CPT/HCPCS: 77063; 77067 ==

== ENCOUNTER → 2023-08-24 13:30 | Outpatient (BNV) | payer BC, SELFPAY | PROVIDERS: PCP Internal Medicine; Visit Provider Radiology Diagnostic Radiology | DX: Z12.31 Encounter for screening mammogram for malignant neoplasm of breast (principal) | CPT/HCPCS: 77063; 77067 ==

== ENCOUNTER 2023-10-05 06:53 | Outpatient (REF) | payer BC, SELFPAY ==
[2023-10-05 08:48] LABS: Alanine Aminotransferase 24 U/L (0-31); Alkaline Phosphatase 60 U/L (39-117); Anion Gap 10 (12-20); Aspartate Amino Transferase 20 U/L (5-31); Bilirubin Total 0.7 mg/dL (0.0-1.0); Blood Urea Nitrogen 15 mg/dL (9-16); Calcium 9.7 mg/dL (8.4-10.2); Carbon Dioxide 27 mmol/L (22-29); Chloride 105 mmol/L (96-108); Cholesterol 173 mg/dL (<200); Estimated Glomerular Filt Rate > 60; Glucose Fasting 88 mg/dL (60-99); HDL Cholesterol 45 mg/dL (>40); LDL Cholesterol Calculated 55 mg/dL (<100); Potassium 4.2 mmol/L (3.3-5.1); Sodium 138 mmol/L (135-145); Total Protein 7.3 g/dL (6.5-8.0); Triglycerides 365 mg/dL (<150); Vitamin D 25-OH Total 39.9 ng/mL (>30)
== END 2023-10-05 06:54 | disposition home or self-care (01) ==
LOC: HO.LAB 06:53
PROVIDERS: PCP Internal Medicine; Visit Provider Internal Medicine
DX: Z00.00 Encounter for general adult medical examination without abnormal findings (principal); E55.9 Vitamin D deficiency, unspecified; E78.5 Hyperlipidemia, unspecified; K75.81 Nonalcoholic steatohepatitis (NASH)
CPT/HCPCS: 36415; 80053; 80061; 82306

== ENCOUNTER 2023-10-05 10:52 | Outpatient (AMB) | payer BC, SELFPAY ==
--- NOTE | 2023-10-05 11:05 | A.OFFVIS_ITS ---
Vital Signs 10/05/23 11:07 Height 5 ft 3 in Weight 141 lb 1.533 oz BMI 25.0 BP 132/78 Blood Pressure Location Lt brachial Position Sitting Pulse 76 Intake Visit Reasons: 6 month follow up Intake Note: Nan presents in the office as a 6 month follow up. CC: She is here today with no concerns just a follow up. Board Turner Required: No Allergies Sulfa (Sulfonamide Antibiotics) Allergy (Intermediate, Verified 10/05/23 11:06) rash HPI HPI 6 month follow up: Details: 42 yr old f here for f/u for NAFLD RECAP: seen for abn LFt which had normalized drinks wine rare occasions non smoker no FH of liver disease, no FH of CRC, IBD no blood transfusions LABS: AST 25, ALT 70, otherwise LFt nml, LDL 177, HDL 48 Hep C and B neg 2018 rept LABs with ALT mildly raised 34 [place], SMA a1at and other serologies incl for Hep b,c neg LFT 02/2021--nml LFT 08/2021: bili 1.1 , ALT 56 LFT 06/05: nml LFT LFT 09/2022-- nml LFT initial US with liver echogenicity, low risk of fibrosis, trace ascites ? colonsocopy was nml, apart from small internal hemorrhoids US 08/2021--- nml appearing liver, elastography high probability of being normal US 09/2022--- fatty liver, elastography median stiffness 1.42 INTERIM: She is doing well no major complaints no nausea, appetite is good not drinking alcohol reviewed etiology of PATEL and NAFLD again incl genetics, diet and environment and recommended healthy eating and exercise at elast 5 times/week for 30 mins EXAM: GENERAL: The patient is well developed and nontoxic. VITAL SIGNS:see workflow HEENT: Nonicteric sclerae, PERRLA, EOMI. Oropharynx clear. Moist mucous membranes. Conjunctivae appear well perfused. No thyroid mass. CHEST: Chest wall is nontender. HEART: Regular rate and rhythm without murmurs. LUNGS: Clear to auscultation bilaterally. ABDOMEN: Soft, positive bowel sounds, nontender, no organomegaly.no flank tenderness SKIN: No rash, no excessive bruising, petechiae, or purpura. NEUROLOGIC: Cranial nerves II-XII intact without motor/sensory deficit. psych: nml affect Assessment & Plan (1) Transaminitis- LFt nml on several occasions, has NAFLD ? ? ? PLAN: 1/ rept LFT next visit, Us now 2. cont with statin 3/ advised on healthy living, diet, exercise, and avoiding greasy foods, fries as before [facility] Medical History Hypercalcemia Hyperkalemia Abnormal mammogram Hyperparathyroidism Mild major depression, single episode Disorder of bone and cartilage, unspecified Depression Chronic fatigue Mixed hyperlipidemia Multinodular thyroid Vitamin D deficiency Hyperlipidemia Transaminitis Premature ovarian failure Surgical History Hx of cervical polypectomy Hx of vaginal surgery Hx of colonoscopy Hx of biopsy Family History Father Arthritis of knee Hypothyroidism Atrial fibrillation Mother Diabetes Myocardial infarction Cardiovascular disease Maternal Grandmother Diabetes Maternal Uncle Diabetes Brother No problems noted. Brother No problems noted. Family/Other History of breast cancer Family/Other History of breast cancer Social History Household Members: Family Housing: House Are you a primary career and technology education teacher to a significant other at home: No Do you presently have visiting nurse or other home services: No Alcohol intake: former Patient Tobacco Use Status: Never used Tobacco e-Cigarette/Vaping Use: Never Used Second Hand Smoke Exposure: No service: No Current occupational status: employed Current occupational exposures/hazards: No Sexual orientation: Straight/Heterosexual Gender identity: Female Cognitive needs: No Hearing needs: No Vision needs: No Female Reproductive History Menstrual Age of Menarche: 9 Physical Exam Vital Signs: Last Vital Signs Pulse 76 10/05/23 11:07 BP 132/78 10/05/23 11:07 BMI result Body Mass Index 25.0 Assessment & Plan Assessment & Plan (1) Nonalcoholic steatohepatitis (PATEL): Code(s): K75.81 - Nonalcoholic steatohepatitis (PATEL) Category: Medical Plan: (1) Transaminitis- LFt nml on several occasions, has NAFLD ? ? ? PLAN: 1/ rept LFT next visit, Us now 2. cont with statin 3/ advised on healthy living, diet, exercise, and avoiding greasy foods, fries as before Orders: Orders US abdomen roman w elastography Today K75.81 - Nonalcoholic steatohepatitis (PATEL)
[2023-10-05 11:07] VITALS: BP 132/78; PULSE 76; BMI 25.0
== END 2023-10-05 11:30 | disposition home or self-care (01) ==
LOC: HO.HGI 10:52
PROVIDERS: PCP Internal Medicine; Visit Provider Internal Medicine Gastroenterology
DX: K75.81 Nonalcoholic steatohepatitis (NASH) (principal)
CPT/HCPCS: 99213

== ENCOUNTER 2023-10-19 09:27 | Outpatient (REF) | payer BC, SELFPAY ==
--- NOTE | ~2023-10-19 | US_ITS ---
EXAMINATION: US ABDOMEN LIMITED WITH LIVER ELASTOGRAPHY CLINICAL INFORMATION: Nonalcoholic steatohepatitis. COMPARISON: Abdominal ultrasound dated 09/15/2022. TECHNIQUE: Real-time imaging of the abdominal viscera. Noninvasive ultrasound liver fibrosis assessment is performed using Adriana ElastPQ point quantification shear wave elastography (2D-SWE) with a C5-2 MHz transducer. Multiple elastography samples are obtained. FINDINGS: PANCREAS: Normal. The visualized pancreatic head and body are normal in appearance. The remainder of the pancreas is obscured from visualization by the overlying bowel gas. LIVER: The liver demonstrates normal size, contour and increased echogenicity. There is a Stephanie's lobe configuration. No focal lesion or intrahepatic biliary duct dilatation. The right lobe measures 14.6 cm in length. The left lobe measures 13.8 cm in length. Portal flow is towards the liver (hepatopetal). Shear wave liver elastography median stiffness is 1.98 m/s (reference: normal median stiffness is 1.3 m/s or less). IQR/median stiffness to assess sampling precision is 0.03 (reference: good quality data set is IQR/median stiffness of 0.15 or less). GALLBLADDER: Normal. The gallbladder is physiologically distended without evidence of stones, sludge, polyps, wall thickening or pericholecystic fluid. COMMON BILE DUCT: Normal in caliber measuring 0.7 cm in diameter. RIGHT KIDNEY: Normal. No hydronephrosis. No renal calculi or focal parenchymal lesions. The kidney measures 9.6 cm in maximum dimension. FREE FLUID: None. US/US abdomen roman w elastography IMPRESSION: 1. There is generalized increase in hepatic echotexture, consistent with fatty infiltration or hepatocellular disease. Please correlate clinically. No focal hepatic mass or intrahepatic biliary dilatation is seen. 2. Liver elastography: Measurements are suggestive of compensated advanced chronic liver disease but need further test for confirmation. REFERENCE: Society of Radiologists in Ultrasound Liver Stiffness Thresholds (2020): LIVER STIFFNESS THRESHOLDS: *Liver Stiffness equal or less than 1.3 m/s: High probability of being normal. *Liver Stiffness less than 1.7 m/s: In the absence of other known clinical signs, rules out compensated advanced chronic liver disease. *Liver Stiffness 1.7-2.1 m/s: Suggestive of compensated advanced chronic liver disease but need further test for confirmation. *Liver Stiffness over 2.1 m/s: Rules in compensated advanced chronic liver disease. *Liver Stiffness over 2.4 m/s: Suggestive of clinically significant portal hypertension. QUALITY OF DATA SET: *IQR/Median value equal or less than 0.15 implies a quality data set. *IQR/Median value over 0.15 implies a poor quality data set. SIGNIFICANT CHANGE FROM PRIOR EXAM: Significant change if liver stiffness measurement is 10% or greater from prior exam. OTHER CONSIDERATIONS: The stage of liver fibrosis may be overestimated in the setting of acute hepatitis, liver inflammation, elevated liver function tests, hepatic vascular congestion, obstructive cholestasis, non-fasting state, and infiltrative diseases such as amyloidosis and lymphoma. In some patients with NAFLD, the liver stiffness thresholds for compensated advanced chronic liver disease may be lower. In causes other than viral hepatitis and NAFLD, liver stiffness thresholds are not well established.
== END 2023-10-19 09:28 | disposition home or self-care (01) ==
LOC: HO.US 09:27
PROVIDERS: PCP Internal Medicine; Visit Provider Internal Medicine Gastroenterology
DX: K75.81 Nonalcoholic steatohepatitis (NASH) (principal)
CPT/HCPCS: 76705; 76981

== ENCOUNTER 2023-10-21 13:32 | Outpatient (AMB) | payer BC, SELFPAY ==
--- NOTE | 2023-10-21 13:38 | MHC.OFFVIS ---
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 Doing well with no concerns. Taking HRT due to POF, Rx from her endocrine provider. She tries to eat healthy and stays active with exercise occasionally. Currently is not sexually active. She denies vaginal itching and irritation. STI screening offered; she declines. Denies family history of breast, ovarian or colon cancer. Last pap smear 2022, negative. Mammogram: 2023. [facility] Medical History (Updated 10/21/23 @ 14:03 by Carmela Smalls CNM) Encounter for well woman exam with routine gynecological exam Hypercalcemia Hyperkalemia Abnormal mammogram Hyperparathyroidism Mild major depression, single episode Disorder of bone and cartilage, unspecified Depression Chronic fatigue Mixed hyperlipidemia Multinodular thyroid Vitamin D deficiency Hyperlipidemia Transaminitis Premature ovarian failure Surgical History Hx of cervical polypectomy Hx of vaginal surgery Hx of colonoscopy Hx of biopsy Family History Father Arthritis of knee Hypothyroidism Atrial fibrillation Mother Diabetes Myocardial infarction Cardiovascular disease Maternal Grandmother Diabetes Maternal Uncle Diabetes Brother No problems noted. Brother No problems noted. Family/Other History of breast cancer Family/Other History of breast cancer Social History Household Members: Family Housing: House Are you a primary day care director to a significant other at home: No Do you presently have visiting nurse or other home services: No Alcohol intake: former Patient Tobacco Use Status: Never used Tobacco e-Cigarette/Vaping Use: Never Used Second Hand Smoke Exposure: No service: No Current occupational status: employed Current occupational exposures/hazards: No Sexual orientation: Straight/Heterosexual Gender identity: Female Cognitive needs: No Hearing needs: No Vision needs: No Female Reproductive History Menstrual Age of Menarche: 9 Date of last menstrual period: 10/01/23 Total pregnancies: 0 Date of last pap smear: 10/06/22 (neg pap and hpv) Date of Mammogram: 08/24/23 (Birad 1) Review of Systems Const All systems reviewed & are unremarkable except as noted in HPI and below Reports as per HPI Eyes Reports no additional complaints ENT Reports no additional complaints Card Reports no additional complaints Resp Reports no additional complaints GI Reports as per HPI and Reports no additional complaints Reports as per HPI Musc Reports no additional complaints Skin/Breast Reports as per HPI Neuro Reports no additional complaints Psych Reports no additional complaints Endo Reports no additional complaints Jamir/Lymph Reports no additional complaints Aller/Immun Reports no additional complaints Physical Exam Vital Signs: Last Vital Signs BP 116/66 10/21/23 13:51 BMI result Body Mass Index 26.2 Const General: cooperative, healthy appearing, no acute distress, well developed and alert Orientation/consciousness: patient oriented x3 HEENT Head: Yes normal to inspection Eyes General: appearance normal, both eyes and all related structures Neck Neck: Yes normal visual inspection Thyroid: Thyroid normal Chest Chest palpation & inspection: normal inspection of the chest and other (no puckering, dimpling, peau de orange, retraction, discharge, masses) Breast/axilla inspection: normal inspection of the breasts Breast/axilla palpation: normal palpation of the breasts Resp Effort & Inspection: normal respiratory effort GI Inspection: Yes normal to inspection Palpation (GI): Soft to palpation Rectal Exam - Female: deferred General: Yes bladder normal to palpation External Female Exam: normal external appearance and normal appearance of the urethra Speculum Exam - Vagina: normal appearance of the vagina, normal palpation and normal vaginal discharge Speculum Exam - Cervix: normal appearance of the cervix and normal palpation Bimanual exam- vagina & uterus: normal bimanual exam, normal palpation, uterine size normal, bladder normal to palpation, normal palpation and non-tender Bimanual Exam- Adnexa, other: no masses Skin General skin exam: no rashes or lesions noted Rashes: no rashes Neuro General: patient oriented x3 Cognition (Neuro): normal cognition Extrem General: Yes normal to inspection Psych Attitude: cooperative Thought process: Normal thought process present Assessment & Plan Assessment & Plan (1) Encounter for well woman exam with routine gynecological exam: Code(s): Z01.419 - Encounter for gynecological examination (general) (routine) without abnormal findings Category: Medical Plan: Discussed: Current recommendations for pap smears per ASCCP guidelines. Breast awareness and periodic breast exams. Maintain a healthy lifestyle including a well balanced diet and routine exercise. Use condoms for STI prevention. Mammogram yearly. Colonoscopy >45, or at risk sooner. Call with any postmenopausal bleeding. Patient verbalizes understanding and agrees to the plan of care. She was given opportunity to ask questions and all questions were answered to the best of my ability. RTO in one year for annual team coordinator examination. This note is constructed using voice recognition software. While every effort has been made to ensure accuracy, assistant health educator errors may have been included. Coding Level of Care Code Est Pt Prev Care 40-64y(54315) Diagnoses Encounter for well woman exam with routine gynecological exam Z01.419
[2023-10-21 13:51] VITALS: BP 116/66; BMI 26.2
== END 2023-10-21 14:18 | disposition home or self-care (01) ==
LOC: HO.HWS 13:32
PROVIDERS: PCP Internal Medicine; Visit Provider Advanced Practice Midwife
DX: Z01.419 Encounter for gynecological examination (general) (routine) without abnormal findings (principal)
CPT/HCPCS: 99396

== ENCOUNTER → 2023-10-21 13:32 | Outpatient (BNVA) | payer BC, SELFPAY | PROVIDERS: PCP Internal Medicine; Visit Provider Advanced Practice Midwife ==

== ENCOUNTER 2024-03-23 08:58 | Outpatient (AMB) | payer BC, SELFPAY ==
--- NOTE | 2024-03-23 08:59 | MHC.PC.OV ---
Vital Signs 03/23/24 09:00 Height 5 ft 3 in Weight 147 lb BMI 26.0 BP 126/72 Blood Pressure Location Lt brachial Position Sitting Intake Visit Reasons: PE Intake Note: Patient here for a physical exam Health Manager Required: No Accompanied by: Self / Same As Patient Allergies Sulfa (Sulfonamide Antibiotics) Allergy (Intermediate, Verified 03/23/24 09:13) rash Medication List - Last Reconciled 03/23/24 by Mary Manzanares MD ascorbate calcium (vitamin C) 500 mg PO DAILY atorvastatin 20 mg PO BEDTIME 30 days cetirizine (Zyrtec) 10 mg PO DAILY PRN citalopram 10 mg PO DAILY estradiol 1 mg PO DAILY medroxyprogesterone (Provera) 10 mg PO DAILY 12 days methylcellulose (laxative) (Citrucel) 500 mg PO DAILY 30 days Tobacco use date assessed: 07/13/23 Dental Screening Dental Screen Date: 07/13/23 HPI HPI Comments History of Present Illness Details This is a 43-year-old female with mild major depression that comes for her physical exam. Mild major depression has been stable with citalopram and she does have a counselor. Mammogram done 2023 was normal. Pap smear done 2022 was normal. Colonoscopy done 2020 and was normal. Denies any chest pain or shortness on breath. Complains of chronic fatigue and her dogs were recently diagnosed with Lyme disease. [facility] Medical History (Updated 03/23/24 @ 09:46 by Mary Manzanares MD) Encounter for well woman exam with routine gynecological exam Hypercalcemia Hyperkalemia Abnormal mammogram Hyperparathyroidism Mild major depression, single episode Disorder of bone and cartilage, unspecified Depression Chronic fatigue Mixed hyperlipidemia Multinodular thyroid Vitamin D deficiency Hyperlipidemia Transaminitis Premature ovarian failure Surgical History Hx of cervical polypectomy Hx of vaginal surgery Hx of colonoscopy Hx of biopsy Family History Father Arthritis of knee Hypothyroidism Atrial fibrillation Mother Diabetes Myocardial infarction Cardiovascular disease Maternal Grandmother Diabetes Maternal Uncle Diabetes Brother No problems noted. Brother No problems noted. Family/Other History of breast cancer Family/Other History of breast cancer Social History Household Members: Family Housing: House Are you a primary career technical education instructor to a significant other at home: No Do you presently have visiting nurse or other home services: No Alcohol intake: former Patient Tobacco Use Status: Never used Tobacco e-Cigarette/Vaping Use: Never Used Second Hand Smoke Exposure: No service: No Current occupational status: employed Current occupational exposures/hazards: No Sexual orientation: Straight/Heterosexual Gender identity: Female Cognitive needs: No Hearing needs: No Vision needs: No Female Reproductive History Menstrual Age of Menarche: 9 Questionnaire PHQ-9 Over the last 2 weeks, how often have you been bothered by any of the following problems? 1. Little interest or pleasure in doing things: several days 2. Feeling down, depressed, or hopeless: several days 3. Trouble falling or staying asleep, or sleeping too much: several days 4. Feeling tired or having little energy: several days 5. Poor appetite or overeating: several days 6. Feeling bad about yourself - or that you are a failure or have let yourself or your family down: several days 7. Trouble concentrating on things, such as reading the newspaper or watching television: several days 8. Moving or speaking so slowly that other people could have noticed. Or the opposite - being so fidgety or restless that you have been moving around a lot more than usual: several days 9. Thoughts that you would be better off or of hurting yourself in some way: not at all Total score: 8 Depression Screening Interpretation: Positive Depression Screening Follow-up: Existing condition, In treatment, Community Mental Health Worker F/U and Follow-up Visit Requested Depression Screening Done: Yes 26274 - PHQ-9 Billing: Yes Source: Developed by Drs. Luis Bhatti, Darcie Porras, Santosh Colorado and colleagues, with an educational teresita from [employer]. Thrive Questionnaire Date Thrive assessed: 03/23/24 I am a: Patient What is your living situation today?: I have a steady place to live Within the past 12 months, did the food you bought not last and you didn't have the money to get more?: I choose not to answer this question Within the past 12 months, did you worry whether your food would run out before you got money to buy more?: I choose not to answer this question Do you have trouble paying for medicines?: No Do you have trouble getting transportation to medical appointments?: No Do you have trouble paying your heating and electricity bill?: No Do you have trouble taking care of your child, family member or friend?: No Do you have trouble with day-to-day activities such as bathing, preparing meals, shopping, managing finances, etc.?: No Are you currently unemployed and looking for a job?: I choose not to answer this question Are you interested in more education?: I choose not to answer this question Please select the resources that you would like help with: None Currently or been in a relationship where the following occur: I choose not to answer THRIVE Score: 0 AUDIT C Alcohol Use Questionnaire (AUDIT-C) 1. How often do you have a drink containing alcohol?: Never Total Score: 0 Score Reviewed/Action Taken: No NATA-7 AMB Questionnaire NATA-7 Date NATA - 7 assessed: 03/23/24 Feeling nervous, anxious, or on edge: 1 = Several days Not being able to stop or control worryin = Several days Worrying too much about different things: 1 = Several days Trouble relaxin = Several days Being so restless that it is hard to sit still: 1 = Several days Becoming easily annoyed or irritable: 0 = Not at all Feeling afraid as if something awful might happen: 1 = Several days Total NATA-7 score (0-4 normal; 5-9 mild; 10-14 moderate; 15-21 severe): 6 Source: Developed by Drs. Luis Bhatti, Darcie Porras, Santosh Colorado and colleagues, with an educational teresita from [employer]. NATA-7 Assessment Billing NATA-7 Assessment Tool: NATA-7 Assessment 30443 Review of Systems Const All systems reviewed & are unremarkable except as noted in HPI and below Card Denies chest pain at rest, Denies chest pain with activity, Denies edema, Denies irregular heart rhythm, Denies claudication, Denies dyspnea, Denies dyspnea on exertion, Denies orthopnea, Denies paroxysmal nocturnal dyspnea and Denies slow heart rate Resp Denies cough, Denies dyspnea and Denies dyspnea on exertion GI Denies abdominal pain, Denies change in bowel habits, Denies excessive flatus, Denies nausea and Denies vomiting Denies urinary incontinence, Denies urinary hesitancy and Denies urinary urgency Musc Denies abnormal gait, Denies atrophy, Denies deformity and Denies limited range of motion Skin/Breast Denies bleeding lesions, Denies changing lesions and Denies rash Neuro Denies abnormal gait, Denies behavioral changes, Denies confusion and Denies lack of coordination Psych Denies behavioral changes and Denies confusion Physical exam (Primary Care) Vital Signs: Last Vital Signs BP 126/72 03/23/24 09:00 BMI result Body Mass Index 26.0 Tobacco/Smoking Status: Tobacco use Status Tobacco use date assessed 07/13/23 03/23/24 09:04 Patient Tobacco Use Status Never used Tobacco 03/23/24 09:04 e-Cigarette/Vaping Use Never Used 03/23/24 09:04 PHQ-9: PHQ-9 Score PHQ-9: Total score 8 03/23/24 09:18 Depression Screening Interpretation: Positive Depression Screening Follow-up: Existing condition, In treatment, Community Mental Health Worker F/U and Follow-up Visit Requested Thrive Assessment: Date of Thrive Assessment Date Thrive assessed 03/23/24 03/23/24 09:04 Currently or been in a relationship where the following occur: I choose not to answer Const General: No confusion Orientation/consciousness: patient oriented x3 and No confusion HENMT Head: Yes normal to inspection, Yes normocephalic and Yes atraumatic Ears: external ears normal Eyes General: appearance normal, both eyes and all related structures Eyelids: Yes eyelids normal Conjunctivae: conjunctivae normal Neck Neck: Yes normal visual inspection and Yes supple Resp Effort & Inspection: normal respiratory effort Auscultation: clear to auscultation bilaterally Cardio Jugular venous distension: no JVD Rate: regular rate Rhythm: regular rhythm Heart sounds: S1 normal heart sound present and S2 normal heart sound present GI Inspection: Yes normal to inspection Palpation (GI): Soft to palpation and nontender Auscultation: normal bowel sounds Skin General skin exam: no rashes or lesions noted Neuro General: patient oriented x3, no focal motor deficits and No confusion Extrem General: Yes full ROM Psych Appearance: grossly normal Office Procedures Flu Questionnaire Does the patient have a severe egg allergy?: No Immunizations Fluarix Triv [id number] (PF) 45 mcg (15 mcg x 3)/0.5 mL IM syringe Performing Provider: Mary Manzanares MD Performing Location: [facility] [place] [facility] Documented (not given) by: MARY Kemp on 03/23/24 09:05 Reason Not Given: Received Previously Coding Level of Care Code Est Pt Level 3 (02374) Est Pt Prev Care 40-64y(00269) Diagnoses Physical exam Z00.00 Mild recurrent major depression F33.0 Chronic fatigue R53.82 Additional Codes NATA-7 Assessment Billing - NATA-7 Assessment Tool: NATA-7 Assessment 64777 ([id number]) Time Spent (min) 31 Assessment & Plan Assessment & Plan (1) Physical exam: Code(s): Z00.00 - Encounter for general adult medical examination without abnormal findings Category: Medical Plan: Repeat in a year. (2) Mild recurrent major depression: Code(s): F33.0 - Major depressive disorder, recurrent, mild Category: Medical Plan: Continue citalopram. Continue counseling. (3) Chronic fatigue: Code(s): R53.82 - Chronic fatigue, unspecified Category: Medical Plan: Lyme titers ordered. Orders: Orders Influenza [id number] Immunization Today Z23 - Encounter for immunization Vitamin D 25-OH Total Today E55.9 - Vitamin D deficiency, unspecified Comprehensive [place]. Panel Fast Today Z00.00 - Encounter for general adult medical examination without abnormal findings Lyme IgG/IgM w/reflex to WB Today R53.82 - Chronic fatigue, unspecified Thyroid Stimulating Hormone Today E04.2 - Nontoxic multinodular goiter Lipid Panel Today E78.5 - Hyperlipidemia, unspecified
[2024-03-23 09:00] VITALS: BP 126/72; BMI 26.0
== END 2024-03-23 09:26 | disposition home or self-care (01) ==
PROVIDERS: PCP Internal Medicine; Visit Provider Internal Medicine
DX: Z00.00 Encounter for general adult medical examination without abnormal findings (principal); F33.0 Major depressive disorder, recurrent, mild; R53.82 Chronic fatigue, unspecified

== ENCOUNTER → 2024-03-23 08:58 | Outpatient (BNVA) | payer BC, SELFPAY | PROVIDERS: PCP Internal Medicine; Visit Provider Internal Medicine | DX: Z00.01 Encounter for general adult medical examination with abnormal findings (principal); F33.0 Major depressive disorder, recurrent, mild; R53.82 Chronic fatigue, unspecified; Z79.899 Other long term (current) drug therapy | CPT/HCPCS: 90471; 96127 ==

== ENCOUNTER 2024-05-10 10:23 | Outpatient (AMB) | payer BC, SELFPAY ==
--- NOTE | 2024-05-10 10:24 | A.OFFVIS_ITS ---
Intake Visit Reasons: TV discuss medication Pyrometer Mechanic Required: Yes Pyrometer Mechanic Services: Pyrometer Mechanic Present Pyrometer Mechanic Name: Chanel [id number] Endocrinology Nurse: Endocrinology Nurse Present Allergies Sulfa (Sulfonamide Antibiotics) Allergy (Intermediate, Verified 03/23/24 09:13) rash Is last menstrual period known: Yes HPI Comments Details: [facility] visit 10:27-10:45. I spent 17 minutes speaking with the patient on the phone plus an additional 5 minutes reviewing the chart and 5 minutes updating the medical record for a total of 27minutes. afloat cryptologic manager was utilized via iPad/Manta. Patient presents via phone to discuss: Hormone replacement therapy, history of premature ovarian failure (age 38), previously treated by her endocrine provider, is transitioning her care here. Last mammogram 07/04/2023-negative. She takes estradiol 1 mg daily, and Provera 10 mg times 12 days per month. History of elevated LFTs and diagnosis of PATEL. Off the medication for the last 2 months it has not experienced hot flashes. [facility] Medical History (Updated 05/10/24 @ 10:44 by Carmela Smalls CNM) Encounter for well woman exam with routine gynecological exam Hypercalcemia Hyperkalemia Abnormal mammogram Hyperparathyroidism Mild major depression, single episode Disorder of bone and cartilage, unspecified Depression Chronic fatigue Mixed hyperlipidemia Multinodular thyroid Vitamin D deficiency Hyperlipidemia Transaminitis Premature ovarian failure Surgical History Hx of cervical polypectomy Hx of vaginal surgery Hx of colonoscopy Hx of biopsy Family History Father Arthritis of knee Hypothyroidism Atrial fibrillation Mother Diabetes Myocardial infarction Cardiovascular disease Maternal Grandmother Diabetes Maternal Uncle Diabetes Brother No problems noted. Brother No problems noted. Family/Other History of breast cancer Family/Other History of breast cancer Social History Household Members: Family Housing: House Are you a primary group care worker to a significant other at home: No Do you presently have visiting nurse or other home services: No Alcohol intake: former Patient Tobacco Use Status: Never used Tobacco e-Cigarette/Vaping Use: Never Used Second Hand Smoke Exposure: No service: No Current occupational status: employed Current occupational exposures/hazards: No Sexual orientation: Straight/Heterosexual Gender identity: Female Cognitive needs: No Hearing needs: No Vision needs: No Female Reproductive History Menstrual Age of Menarche: 9 Review of Systems Const All systems reviewed & are unremarkable except as noted in HPI and below Endo Reports no additional complaints Physical Exam Const General: cooperative, healthy appearing and no acute distress Psych Appearance: well kempt Attitude: cooperative Thought process: Normal thought process present Telehealth Telehealth Telehealth Platform: Going Patient Identification confirmed using: Name, : Yes Telehealth method: video Patient verbally consented to treatment: Yes Patient verbally consented to billing insurance company: Yes Patient informed of any privacy concerns related to visit: Yes Assessment & Plan Assessment & Plan (1) Medication refill: Code(s): Z76.0 - Encounter for issue of repeat prescription (2) Premature ovarian failure: Comment: age 38 Code(s): E28.39 - Other primary ovarian failure Category: Medical (3) Nonalcoholic steatohepatitis (PATEL): Code(s): K75.81 - Nonalcoholic steatohepatitis (PATEL) Category: Medical Plan Discussed: , Reviewed risk factors, when to call the office for any concerns or changes medically, encouraged healthy lifestyle habits-including healthy low-fat diet regular exercise. Plan to check in with Dr. Christiansen regarding medical concerns and her request to continue HR therapy. Annual exam scheduled October of 2024. All of her questions and concerns were addressed to the best of my ability and shared decision making. She is agreeable to the plan of care. This note is constructed using voice recognition software. While every effort has been made to ensure accuracy, superintendent renting managing errors may have been included. Coding Level of Care Code Tele Est Pt Level 3 (70505) Diagnoses Medication refill Z76.0 Premature ovarian failure E28.39 Nonalcoholic steatohepatitis (PATEL) K75.81
== END 2024-05-10 11:03 | disposition home or self-care (01) ==
LOC: HO.HWS 10:23
PROVIDERS: PCP Internal Medicine; Visit Provider Advanced Practice Midwife
DX: Z76.0 Encounter for issue of repeat prescription (principal); E28.39 Other primary ovarian failure; K75.81 Nonalcoholic steatohepatitis (NASH)
CPT/HCPCS: 99213

== ENCOUNTER 2024-08-29 13:29 | Outpatient (REF) | payer BC, SELFPAY | END 2024-08-29 13:30 | disposition home or self-care (01) | LOC: HO.MAMMO 13:29 | PROVIDERS: PCP Internal Medicine; Visit Provider Internal Medicine | DX: Z12.31 Encounter for screening mammogram for malignant neoplasm of breast (principal) | CPT/HCPCS: 77063; 77067 ==

== ENCOUNTER → 2024-08-29 13:30 | Outpatient (BNV) | payer BC, SELFPAY | PROVIDERS: PCP Internal Medicine; Visit Provider Internal Medicine | DX: Z12.31 Encounter for screening mammogram for malignant neoplasm of breast (principal) | CPT/HCPCS: 77063; 77067 ==

== ENCOUNTER 2024-09-26 09:49 | Outpatient (AMB) | payer BC, SELFPAY ==
[2024-09-26 09:57] VITALS: BP 122/86; BMI 25.9
--- NOTE | 2024-09-26 09:57 | A.OFFPC_ITS ---
Vital Signs 09/26/24 09:57 Height 5 ft 3 in Weight 146 lb BMI 25.9 BP 122/86 Blood Pressure Location Lt brachial Position Sitting Intake Visit Reasons: depression Intake Note: Patient here for a follow up depression Tile Inspector Required: No Accompanied by: Self / Same As Patient Allergies Sulfa (Sulfonamide Antibiotics) Allergy (Intermediate, Verified 09/26/24 10:08) rash Medication List - Last Reconciled 09/26/24 by Mary Manzanares MD ascorbate calcium (vitamin C) 500 mg PO DAILY atorvastatin 20 mg PO BEDTIME 30 days cetirizine (Zyrtec) 10 mg PO DAILY PRN citalopram 10 mg PO DAILY estradiol 1 mg PO DAILY medroxyprogesterone (Provera) 10 mg PO DAILY 12 days methylcellulose (laxative) (Citrucel) 500 mg PO DAILY 30 days Tobacco use date assessed: 09/26/24 Dental Screening Dental Screen Date: 09/26/24 Did you have a dental visit in the last 12 months?: Yes Did you have a dental problem in the last 6 months where you did not have access to dental care?: No Was dental information given to patient?: Patient has dentist HPI HPI Comments History of Present Illness Details The patient is a 44-year-old female presenting with a finger deformity. She describes the affected finger as having a ball of air sensation, coupled with pain and occasional fatigue. The nail is visually deformed and appears to be nearly penetrating the bone. The duration of these symptoms is unclear, though the patient notes their persistence as abnormal. She also has a history of nodular thyroid disease, with her most recent ultrasound done earlier this year, and hyperparathyroidism, necessitating periodic monitoring given its effects on calcium and vitamin D metabolism. No significant changes in these conditions have been reported. Her chronic conditions include hyperlipidemia under atorvastatin treatment, allergic rhinitis managed with Cyterec, and major depressive disorder treated with citalopram, though she does not attend counseling. Her depression is mild, as indicated by a PHQ-9 score of 5, and she denies any tobacco or alcohol usage. [facility] Medical History (Updated 09/26/24 @ 10:16 by Mary Manzanares MD) Encounter for well woman exam with routine gynecological exam Hypercalcemia Hyperkalemia Abnormal mammogram Hyperparathyroidism Mild major depression, single episode Disorder of bone and cartilage, unspecified Depression Chronic fatigue Mixed hyperlipidemia Multinodular thyroid Vitamin D deficiency Hyperlipidemia Transaminitis Premature ovarian failure Surgical History Hx of cervical polypectomy Hx of vaginal surgery Hx of colonoscopy Hx of biopsy Family History Father Arthritis of knee Hypothyroidism Atrial fibrillation Mother Diabetes Myocardial infarction Cardiovascular disease Maternal Grandmother Diabetes Maternal Uncle Diabetes Brother No problems noted. Brother No problems noted. Family/Other History of breast cancer Family/Other History of breast cancer Social History Household Members: Family Housing: House Are you a primary medicare insurance specialist to a significant other at home: No Do you presently have visiting nurse or other home services: No Alcohol intake: former Patient Tobacco Use Status: Never used Tobacco e-Cigarette/Vaping Use: Never Used Second Hand Smoke Exposure: No service: No Current occupational status: employed Current occupational exposures/hazards: No Sexual orientation: Straight/Heterosexual Gender identity: Female Cognitive needs: No Hearing needs: No Vision needs: Yes Female Reproductive History Menstrual Age of Menarche: 9 Questionnaire PHQ-9 Over the last 2 weeks, how often have you been bothered by any of the following problems? 1. Little interest or pleasure in doing things: several days 2. Feeling down, depressed, or hopeless: several days 3. Trouble falling or staying asleep, or sleeping too much: several days 4. Feeling tired or having little energy: several days 5. Poor appetite or overeating: not at all 6. Feeling bad about yourself - or that you are a failure or have let yourself or your family down: not at all 7. Trouble concentrating on things, such as reading the newspaper or watching television: not at all 8. Moving or speaking so slowly that other people could have noticed. Or the opposite - being so fidgety or restless that you have been moving around a lot more than usual: several days 9. Thoughts that you would be better off or of hurting yourself in some way: not at all Total score: 5 Depression Screening Interpretation: Positive Depression Screening Follow-up: Existing condition, In treatment and Follow-up Visit Requested Depression Screening Done: Yes 82999 - PHQ-9 Billing: Yes Source: Developed by Drs. Luis Bhatti, Santosh Gray and colleagues, with an educational teresita from [employer]. Thrive Questionnaire Date Thrive assessed: 09/26/24 I am a: Patient What is your living situation today?: I have a steady place to live Within the past 12 months, did the food you bought not last and you didn't have the money to get more?: I choose not to answer this question Within the past 12 months, did you worry whether your food would run out before you got money to buy more?: I choose not to answer this question Do you have trouble paying for medicines?: No Do you have trouble getting transportation to medical appointments?: No Do you have trouble paying your heating and electricity bill?: No Do you have trouble taking care of your child, family member or friend?: No Do you have trouble with day-to-day activities such as bathing, preparing meals, shopping, managing finances, etc.?: No Are you currently unemployed and looking for a job?: I choose not to answer this question Are you interested in more education?: I choose not to answer this question Please select the resources that you would like help with: None Currently or been in a relationship where the following occur: I choose not to answer THRIVE Score: 0 AUDIT C Alcohol Use Questionnaire (AUDIT-C) 1. How often do you have a drink containing alcohol?: Never Total Score: 0 Score Reviewed/Action Taken: No NATA-7 AMB Questionnaire NATA-7 Date NATA - 7 assessed: 09/26/24 Feeling nervous, anxious, or on edge: 1 = Several days Not being able to stop or control worryin = Not at all Worrying too much about different things: 1 = Several days Trouble relaxin = Not at all Being so restless that it is hard to sit still: 0 = Not at all Becoming easily annoyed or irritable: 1 = Several days Feeling afraid as if something awful might happen: 1 = Several days Total NATA-7 score (0-4 normal; 5-9 mild; 10-14 moderate; 15-21 severe): 4 Source: Developed by Darcie Nixon Kurt Kroenke and colleagues, with an educational teresita from [employer]. NATA-7 Assessment Billing NATA-7 Assessment Tool: NATA-7 Assessment 38071 Review of Systems Const All systems reviewed & are unremarkable except as noted in HPI and below Card Denies chest pain at rest, Denies chest pain with activity, Denies edema, Denies irregular heart rhythm, Denies claudication, Denies dyspnea, Denies dyspnea on exertion, Denies orthopnea, Denies paroxysmal nocturnal dyspnea and Denies slow heart rate Resp Denies cough, Denies dyspnea and Denies dyspnea on exertion GI Denies abdominal pain, Denies change in bowel habits, Denies excessive flatus, Denies nausea and Denies vomiting Neuro Denies lack of coordination Physical exam (Primary Care) Vital Signs: Last Vital Signs BP 122/86 09/26/24 09:57 BMI result Body Mass Index 25.9 Tobacco/Smoking Status: Tobacco use Status Tobacco use date assessed 09/26/24 09/26/24 10:05 Patient Tobacco Use Status Never used Tobacco 09/26/24 10:04 e-Cigarette/Vaping Use Never Used 09/26/24 10:04 PHQ-9: PHQ-9 Score PHQ-9: Total score 5 09/26/24 12:31 Depression Screening Interpretation: Positive Depression Screening Follow-up: Existing condition, In treatment and Follow-up Visit Requested Thrive Assessment: Date of Thrive Assessment Date Thrive assessed 09/26/24 09/26/24 10:04 Currently or been in a relationship where the following occur: I choose not to answer Resp Effort & Inspection: normal respiratory effort Auscultation: clear to auscultation bilaterally Cardio Jugular venous distension: no JVD Rate: regular rate Rhythm: regular rhythm Heart sounds: S1 normal heart sound present and S2 normal heart sound present GI Inspection: Yes normal to inspection Palpation (GI): Soft to palpation and nontender Auscultation: normal bowel sounds Extrem General: Yes full ROM Coding Level of Care Code Est Pt Level 4 (57622) Complex EM visit Add On G2211 Diagnoses Deformity of joint M21.90 Mild recurrent major depression F33.0 Hyperparathyroidism E21.3 Multinodular thyroid E04.2 Mixed hyperlipidemia E78.2 Chronic fatigue R53.82 Additional Codes NATA-7 Assessment Billing - NATA-7 Assessment Tool: NATA-7 Assessment 30734 ([id number]) PHQ-9 - 84990 - PHQ-9 Billing: Yes ([id number]) Time Spent (min) 24 Assessment & Plan Assessment & Plan (1) Deformity of joint: Code(s): M21.90 - Unspecified acquired deformity of unspecified limb Category: Medical (2) Mild recurrent major depression: Code(s): F33.0 - Major depressive disorder, recurrent, mild Category: Medical (3) Hyperparathyroidism: Code(s): E21.3 - Hyperparathyroidism, unspecified Category: Medical (4) Multinodular thyroid: Code(s): E04.2 - Nontoxic multinodular goiter Category: Medical (5) Mixed hyperlipidemia: Code(s): E78.2 - Mixed hyperlipidemia Category: Medical (6) Chronic fatigue: Code(s): R53.82 - Chronic fatigue, unspecified Category: Medical Plan We will refer the patient to orthopedics for her finger deformity to further evaluate and manage the nail and bony structure issues. A follow-up ultrasound for her thyroid nodules will be scheduled to monitor any changes since the last evaluation. For hyperparathyroidism, laboratory tests for calcium and vitamin D levels are necessary. The mild depressive disorder will continue to be managed with citalopram. The patient will undergo laboratory testing to assess hemoglobin and vitamin levels, with instructions to fast prior to these blood draws. Current management of hyperlipidemia and allergic rhinitis will continue with atorvastatin and Cyterec. Patient was informed and verbally consented to the use of an ambient scribe for clinic note documentation during this visit. I discussed the patient's finger deformity and the need for orthopedic evaluation to address the nail and bone structure issues. The patient under stands and agrees to undergo further testing, including a thyroid ultrasound and laboratory tests for calcium, vitamin D, hemoglobin, and vitamins. We reviewed the management of her current medications, including atorvastatin for hyperlipidemia, Cyterec for allergies, and citalopram for depression. The importance of continuing these treatments was highlighted. The patient was advised to fast before her upcoming laboratory tests for optimal results. Orders: Orders Lipid Panel Today E78.5 - Hyperlipidemia, unspecified Calcium, Ionized Today E21.3 - Hyperparathyroidism, unspecified Thyroid Stimulating Hormone Today E04.2 - Nontoxic multinodular goiter US thyroid Today E04.2 - Nontoxic multinodular goiter Vitamin D 25-OH Total Today E55.9 - Vitamin D deficiency, unspecified Vitamin B12 and Folate Today E53.8 - Deficiency of other specified B group vitamins Complete Blood Count Auto Diff Today D64.9 - Anemia, unspecified IRON PROFILE Today D64.9 - Anemia, unspecified Comprehensive [place]. Panel Fast Today K75.81 - Nonalcoholic steatohepatitis (PATEL) Phosphorus Today E21.3 - Hyperparathyroidism, unspecified Parathyroid Hormone Intact Today E21.3 - Hyperparathyroidism, unspecified Referrals Rheumatology Referral M21.90 - Unspecified acquired deformity of unspecified limb Patient Instructions: - Schedule and attend appointment for orthopedic evaluation. - Schedule thyroid ultrasound for follow-up. - Fast before upcoming laboratory appointments. - Continue taking current medications as prescribed. - Monitor for any new symptoms or changes in health and report them.
== END 2024-09-26 10:16 | disposition home or self-care (01) ==
LOC: HO.HMCH 09:50
PROVIDERS: PCP Internal Medicine; Visit Provider Internal Medicine
DX: M21.90 Unspecified acquired deformity of unspecified limb (principal); F33.0 Major depressive disorder, recurrent, mild; E21.3 Hyperparathyroidism, unspecified; E04.2 Nontoxic multinodular goiter; E78.2 Mixed hyperlipidemia; R53.82 Chronic fatigue, unspecified

== ENCOUNTER → 2024-09-26 09:49 | Outpatient (BNVA) | payer BC, SELFPAY | PROVIDERS: PCP Internal Medicine; Visit Provider Internal Medicine | DX: F33.0 Major depressive disorder, recurrent, mild (principal); M20.009 Unspecified deformity of unspecified finger(s); E21.3 Hyperparathyroidism, unspecified; E04.2 Nontoxic multinodular goiter; E78.2 Mixed hyperlipidemia; R53.82 Chronic fatigue, unspecified | CPT/HCPCS: 96127 ==

== ENCOUNTER 2024-10-20 15:36 | Outpatient (REF) | payer BC, SELFPAY ==
--- NOTE | ~2024-10-20 | US_ITS ---
EXAMINATION: US THYROID CLINICAL INFORMATION: Nontoxic multinodular goiter COMPARISON: Ultrasound thyroid 03/23/2023 TECHNIQUE: Linear transducer grayscale and color Doppler examination with attention to the region of the thyroid. FINDINGS: SIZE: Measurements of the thyroid lobes and nodules are given in sagittal, anteroposterior and transverse dimensions respectively. Right Thyroid Lobe: 4.2 x 0.9 x 1.0 cm, volume 2.0 mL. Previously measured 4.1 x 1.1 x 1.3 cm in volume 3.1 mL Parenchyma: The gland echotexture is homogeneous. Thyroid vascularity is normal. Left Thyroid Lobe: 5.2 x 1.2 x 1.7 cm, volume 5.5 mL. Previously it measured 5.8 x 1.5 x 2.2 cm in volume 9.6 mL. Parenchyma: The gland echotexture is homogeneous. Thyroid vascularity is normal. Isthmus: 0.2 cm in maximum AP dimension. Previously measured 0.2 cm Estimated total number of nodules greater than or equal to 1 cm: one. Vice President Digital Strategist nodules are described as follows: 1. Location: Right mid pole. Size: 0.5 x 0.3 x 0.4 cm cm, volume 0.03 mL. Previously measured 0.6 x 0.3 x 0.4 cm and volume 0.03 mL Nodule characteristics: Composition: Solid (2). Echogenicity: Isoechoic (1). Shape: Not taller than wide (0). Margins: Smooth (0). Echogenic Foci: None (0). ACR TI-RADS total points: 3. Previous 3 ACR TI-RADS category: 3. Previous 3 2. Location: Left midpole.. Size: 3.7 x 1.2 x 1.9 cm, volume 4.2 mL. Previously 3.7 x 1.4 x 2.1 cm in volume 5.5 mL. Nodule characteristics: Composition: Solid/almost completely solid (2). Echogenicity: Undetermined Shape: Not taller than wide (0). Margins: Smooth (0). Echogenic Foci: None (0). ACR TI-RADS total points: 3. Previously 3. ACR TI-RADS category: 3. Previously 3. NODES: No lymphadenopathy is seen in the tissue surrounding the thyroid gland. US/US thyroid IMPRESSION: Enlarged left thyroid gland secondary to a mostly solid nodule measuring 3.7 cm, stable to last exam. Total points of thyroid that 3 and is stable to previous study. The right thyroid lobe is unremarkable. ACR TI-RADS RECOMMENDATION REFERENCE: Ultrasound-guided fine-needle aspiration, followup ultrasound, no further follow up. * TR1 (0 point) and TR2 (2 points): No FNA or follow up. * TR3 (3 points): FNA if more than or equal to 2.5 cm in maximum dimension, followup ultrasound in 1, 3 and 5 years if 1.5 to 2.4 cm in maximum dimension. * TR4 (4-6 points): FNA if more than or equal to 1.5 cm in maximum dimension, followup ultrasound in 1, 2, 3 and 5 years if 1 to 1.4 cm in maximum dimension. * TR5 (more than or equal to 7 points): FNA if more than or equal to 1 cm in maximum dimension, followup ultrasound every year for 5 years if 0.5 to 0.9 cm in maximum dimension. * TR3, TR4 or TR5 nodules that are below the size threshold for followup receive no follow up. Electronically signed by: Manjinder Kirk MD 10/21/2024 07:33 AM EDT
== END 2024-10-20 15:37 | disposition home or self-care (01) ==
LOC: HO.US 15:36
PROVIDERS: PCP Internal Medicine; Visit Provider Internal Medicine
DX: E04.2 Nontoxic multinodular goiter (principal)
CPT/HCPCS: 76536

== ENCOUNTER → 2024-10-20 15:39 | Outpatient (BNV) | payer BC, SELFPAY | PROVIDERS: PCP Internal Medicine; Visit Provider Radiology Diagnostic Radiology | DX: E04.2 Nontoxic multinodular goiter (principal) | CPT/HCPCS: 76536 ==

== ENCOUNTER 2024-12-19 07:53 | Outpatient (REF) | payer BC, SELFPAY ==
[2024-12-19 08:13] LABS: MANUAL DIFF FLAG NO
[2024-12-19 08:51] LABS: Hematocrit 39.8 % (37.0-47.0); Hemoglobin 13.2 g/dl (12.0-16.0); Imm Gran Abs Auto 0.04 X10*3/uL (0.00-0.03); Imm Gran Pct Auto 0.7 % (0.0-0.4); Lymphocytes Absolute Auto 3.3 X10*3/uL (1.2-4.9); Mean Corpuscular HGB Conc 33.2 g/dl (31.0-35.0); Mean Corpuscular Hemoglobin 30.2 pg (27.0-33.0); Mean Corpuscular Volume 91.1 fL (80.0-98.0); NRBC Abs Auto 0.000 X10*3/uL (0.0-0.012); NRBC Pct Auto 0.0 /100WBC (0.0-0.2); Platelet Count 265 X10*3/uL (160-400); Red Blood Count 4.37 X10*6/uL (4.20-5.50); White Blood Count 6.1 X10*3/uL (4.8-10.8)
[2024-12-19 10:48] LABS: Parathyroid Hormone Intact 136.6 pg/mL (8.7-77.1)
[2024-12-19 10:56] LABS: Alanine Aminotransferase 61 U/L (0-31); Albumin Level 4.4 g/dL (3.5-5.0); Alkaline Phosphatase 84 U/L (39-117); Anion Gap 12 (12-20); Aspartate Amino Transferase 44 U/L (5-31); Blood Urea Nitrogen 11 mg/dL (9-16); Calcium 9.5 mg/dL (8.4-10.2); Carbon Dioxide 26 mmol/L (22-29); Chloride 106 mmol/L (96-108); Cholesterol 179 mg/dL (<200); Estimated Glomerular Filt Rate > 60; HDL Cholesterol 44 mg/dL (>40); Iron 89 mcg/dL (30-160); Percent Iron Saturation 28 % (15-50); Potassium 4.9 mmol/L (3.3-5.1); Sodium 139 mmol/L (135-145); Total Iron Binding Capacity 315 mcg/dL (228-428); Total Protein 7.4 g/dL (6.5-8.0); Triglycerides 306 mg/dL (<150); Unsaturated Iron Binding 226 ug/dL
[2024-12-19 11:24] LABS: Thyroid Stimulating Hormone 1.84 uIU/mL (0.32-4.0)
[2024-12-19 11:35] LABS: Folate 10.1 ng/mL (> or = 4.0); Vitamin B12 440 pg/mL (200-900)
[2024-12-20 13:54] LABS: Lyme Abs Screen <0.90 index
[2024-12-20 15:32] LABS: Calcium, Ionized 5.4 mg/dL (4.7-5.5)
== END 2024-12-19 07:54 | disposition home or self-care (01) ==
LOC: HO.LAB 07:53
PROVIDERS: PCP Internal Medicine; Visit Provider Internal Medicine
DX: Z01.419 Encounter for gynecological examination (general) (routine) without abnormal findings (principal); D64.9 Anemia, unspecified; E55.9 Vitamin D deficiency, unspecified; E04.2 Nontoxic multinodular goiter; E78.5 Hyperlipidemia, unspecified; E53.8 Deficiency of other specified B group vitamins; K75.81 Nonalcoholic steatohepatitis (NASH); E21.3 Hyperparathyroidism, unspecified; R53.82 Chronic fatigue, unspecified; Z79.899 Other long term (current) drug therapy
CPT/HCPCS: 36415; 80053; 80061; 82306; 82330; 82607; 82746; 83540; 83970; 84100; 84443; 85025; 86617; 86618

== ENCOUNTER 2024-12-19 09:00 | Outpatient (AMB) | payer BC, SELFPAY ==
--- NOTE | 2024-12-19 09:01 | MHC.OFFVIS ---
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 No complaints. Last Pap/HPV was negative in 10/05 Last Mammogram was BI-RADS 1 in 09/06 Last screening colonoscopy 2 years ago [facility] Medical History Encounter for well woman exam with routine gynecological exam Hypercalcemia Hyperkalemia Abnormal mammogram Hyperparathyroidism Mild major depression, single episode Disorder of bone and cartilage, unspecified Depression Chronic fatigue Mixed hyperlipidemia Multinodular thyroid Vitamin D deficiency Hyperlipidemia Transaminitis Premature ovarian failure Surgical History Hx of cervical polypectomy Hx of vaginal surgery Hx of colonoscopy Hx of biopsy Family History Father Arthritis of knee Hypothyroidism Atrial fibrillation Mother Diabetes Myocardial infarction Cardiovascular disease Maternal Grandmother Diabetes Maternal Uncle Diabetes Brother No problems noted. Brother No problems noted. Family/Other History of breast cancer Family/Other History of breast cancer Social History Household Members: Family Housing: House Are you a primary resident care spec to a significant other at home: No Do you presently have visiting nurse or other home services: No Alcohol intake: former Patient Tobacco Use Status: Never used Tobacco e-Cigarette/Vaping Use: Never Used Second Hand Smoke Exposure: No service: No Current occupational status: employed Current occupational exposures/hazards: No Sexual orientation: Straight/Heterosexual Gender identity: Female Cognitive needs: No Hearing needs: No Vision needs: Yes Female Reproductive History Menstrual Age of Menarche: 9 Duration of menses: 3-5 days Date of last menstrual period: 10/20/24 control method: none Total pregnancies: 0 Date of last pap smear: 10/07/23 (negative pap smear, negative hpv) Date of Mammogram: 08/29/24 (BI RAD 1 ) Review of Systems Const All systems reviewed & are unremarkable except as noted in HPI and below Card Reports as per HPI Resp Reports as per HPI GI Reports as per HPI and Reports no additional complaints Reports as per HPI Physical Exam Vital Signs: Last Vital Signs BP 108/70 12/19/24 09:08 BMI result Body Mass Index 25.9 Const General: cooperative, healthy appearing and comfortable Chest Chest palpation & inspection: normal inspection of the chest and normal palpation of entire chest wall Breast/axilla inspection: normal inspection of the breasts and normal inspection of the axillae Breast/axilla palpation: normal palpation of the breasts, normal palpation of the axillae and no axillary lymphadenopathy Resp Effort & Inspection: normal respiratory effort Auscultation: clear to auscultation bilaterally Percussion: percussion normal Cardio Palpation: normal PMI Rate: regular rate Rhythm: regular rhythm Heart sounds: no murmurs and no rubs Peripheral pulses: Peripheral pulses 2+ throughout GI Inspection: Yes normal to inspection Palpation (GI): Soft to palpation, nontender, no guarding, not rigid and No hepatosplenomegaly present Percussion: Yes normal to percussion Auscultation: normal bowel sounds Rectal Exam - Female: deferred General: Yes bladder normal to palpation External Female Exam: No lesion Speculum Exam - Vagina: normal appearance of the vagina, normal palpation, normal vaginal discharge and not erythematous Speculum Exam - Cervix: normal appearance of the cervix and normal palpation Bimanual exam- vagina & uterus: normal bimanual exam, normal palpation, uterine size normal, bladder normal to palpation, consistency normal and normal palpation Bimanual Exam- Adnexa, other: normal adnexae, no masses and no tenderness Assessment & Plan Assessment & Plan (1) Well woman exam: Code(s): Z01.419 - Encounter for gynecological examination (general) (routine) without abnormal findings Category: Medical Plan: Cotesting not indicated this year. Estradiol 1 mg p.o. q.d./ medroxyprogesterone acetate 10 mg p.o. q.d. for 12 days of the month refilled and the patient was instructed to call in case of abnormal uterine bleeding Instructions given to patient to schedule next screening Mammogram in 09/07 Counseled the patient about the recommended dietary allowance of 1000 mg of Calcium & 600 IU of vitamin D. The patient was instructed to perform monthly self-breast exams and to schedule an annual exam in a year; All questions answered and the patient verbalized understanding. Instructed the patient to schedule annual exam in a year Medications: Refilled medroxyprogesterone (Provera) take one tablet the first day of the month for 12 days, then repeat monthly 10 mg PO DAILY 72 tabs 0RF 12 days estradiol 1 mg PO DAILY 90 tabs 2RF Coding Level of Care Code Est Pt Prev Care 40-64y(59291) Diagnoses Well woman exam Z01.419
[2024-12-19 09:08] VITALS: BP 108/70; BMI 25.9
== END 2024-12-19 09:30 | disposition home or self-care (01) ==
LOC: HO.HWS 09:01
PROVIDERS: PCP Internal Medicine; Visit Provider Obstetrics & Gynecology
DX: Z01.419 Encounter for gynecological examination (general) (routine) without abnormal findings (principal)
CPT/HCPCS: 99396; 99459

== ENCOUNTER 2025-03-27 08:51 | Outpatient (AMB) | payer BC, SELFPAY ==
[2025-03-27 08:56] VITALS: BP 116/68; PULSE 94; RESP 18; TEMP 36.2; O2SAT 97; BMI 25.9
--- NOTE | 2025-03-27 08:56 | MHC.PC.OV ---
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 Accompanied by: Self / Same As Patient Allergies Sulfa (Sulfonamide Antibiotics) Allergy (Intermediate, Verified 03/27/25 09:08) rash Medication List - Last Reconciled 03/27/25 by Mary Manzanares MD atorvastatin 20 mg PO BEDTIME 30 days cetirizine (Zyrtec) 10 mg PO DAILY PRN citalopram 10 mg PO DAILY estradiol 1 mg PO DAILY medroxyprogesterone (Provera) 10 mg PO DAILY 12 days Tobacco use date assessed: 03/27/25 Dental Screening Dental Screen Date: 03/27/25 Did you have a dental visit in the last 12 months?: Yes Did you have a dental problem in the last 6 months where you did not have access to dental care?: No Was dental information given to patient?: Patient has dentist HPI HPI Comments History of Present Illness Details The patient is a 44-year-old female presenting for a physical examination and preventative care. She has a history of internal hemorrhoids identified during a colonoscopy in 2020, with the next colonoscopy recommended for 2030. The patient experiences mild recurrent depression, with a PHQ-9 score of 8, and is currently managed with citalopram. A thyroid nodule measuring 3.7 cm on the left side was noted to be stable from the last examination. The patient does not currently see an sales designer for this condition. Laboratory results indicate slightly elevated liver enzymes and triglycerides, and a low vitamin D level. 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 She is allergic to sulfa drugs. [facility] Medical History (Updated 03/27/25 @ 09:25 by Mary Manzanares MD) Encounter for well woman exam with routine gynecological exam Hypercalcemia Hyperkalemia Abnormal mammogram Hyperparathyroidism Mild major depression, single episode Disorder of bone and cartilage, unspecified Depression Chronic fatigue Mixed hyperlipidemia Multinodular thyroid Vitamin D deficiency Hyperlipidemia Transaminitis Premature ovarian failure Surgical History Hx of cervical polypectomy Hx of vaginal surgery Hx of colonoscopy Hx of biopsy Family History Father Arthritis of knee Hypothyroidism Atrial fibrillation Mother Diabetes Myocardial infarction Cardiovascular disease Maternal Grandmother Diabetes Maternal Uncle Diabetes Brother No problems noted. Brother No problems noted. Family/Other History of breast cancer Family/Other History of breast cancer Social History Household Members: Family Housing: House Are you a primary care support representative to a significant other at home: No Do you presently have visiting nurse or other home services: No Alcohol intake: former Patient Tobacco Use Status: Never used Tobacco e-Cigarette/Vaping Use: Never Used Second Hand Smoke Exposure: No service: No Current occupational status: employed Current occupational exposures/hazards: No Sexual orientation: Straight/Heterosexual Gender identity: Female Cognitive needs: No Hearing needs: No Vision needs: Yes Female Reproductive History Menstrual Age of Menarche: 9 Questionnaire PHQ-9 Over the last 2 weeks, how often have you been bothered by any of the following problems? 1. Little interest or pleasure in doing things: several days 2. Feeling down, depressed, or hopeless: several days 3. Trouble falling or staying asleep, or sleeping too much: several days 4. Feeling tired or having little energy: several days 5. Poor appetite or overeating: several days 6. Feeling bad about yourself - or that you are a failure or have let yourself or your family down: several days 7. Trouble concentrating on things, such as reading the newspaper or watching television: several days 8. Moving or speaking so slowly that other people could have noticed. Or the opposite - being so fidgety or restless that you have been moving around a lot more than usual: several days 9. Thoughts that you would be better off or of hurting yourself in some way: not at all Total score: 8 Depression Screening Interpretation: Positive Depression Screening Follow-up: Existing condition, In treatment and Follow-up Visit Requested Depression Screening Done: Yes 35598 - PHQ-9 Billing: Yes Source: Developed by Drs. Luis Bhatti, Darcie BSantosh Diallo and colleagues, with an educational teresita from [employer]. Thrive Questionnaire Date Thrive assessed: 09/26/24 I am a: Patient What is your living situation today?: I have a steady place to live Within the past 12 months, did the food you bought not last and you didn't have the money to get more?: I choose not to answer this question Within the past 12 months, did you worry whether your food would run out before you got money to buy more?: I choose not to answer this question Do you have trouble paying for medicines?: I choose not to answer this question Do you have trouble getting transportation to medical appointments?: No Do you have trouble paying your heating and electricity bill?: No Do you have trouble taking care of your child, family member or friend?: I choose not to answer this question Do you have trouble with day-to-day activities such as bathing, preparing meals, shopping, managing finances, etc.?: No Are you currently unemployed and looking for a job?: No Are you interested in more education?: I choose not to answer this question Please select the resources that you would like help with: None Currently or been in a relationship where the following occur: No concerns reported THRIVE Score: 0 AUDIT C Alcohol Use Questionnaire (AUDIT-C) 1. How often do you have a drink containing alcohol?: Never Total Score: 0 Score Reviewed/Action Taken: No NATA-7 AMB Questionnaire NATA-7 Date NATA - 7 assessed: 09/26/24 Feeling nervous, anxious, or on edge: 0 = Not at all Not being able to stop or control worryin = Several days Worrying too much about different things: 1 = Several days Trouble relaxin = Several days Being so restless that it is hard to sit still: 1 = Several days Becoming easily annoyed or irritable: 1 = Several days Feeling afraid as if something awful might happen: 1 = Several days Total NATA-7 score (0-4 normal; 5-9 mild; 10-14 moderate; 15-21 severe): 6 Source: Developed by Drs. Luis Bhatti, Santosh Gray and colleagues, with an educational teresita from [employer]. NATA-7 Assessment Billing NATA-7 Assessment Tool: NATA-7 Assessment 52680 Review of Systems Const All systems reviewed & are unremarkable except as noted in HPI and below Card Denies chest pain at rest, Denies chest pain with activity, Denies edema, Denies irregular heart rhythm, Denies claudication, Denies dyspnea, Denies dyspnea on exertion, Denies orthopnea, Denies paroxysmal nocturnal dyspnea and Denies slow heart rate Resp Denies cough, Denies dyspnea and Denies dyspnea on exertion Neuro Denies lack of coordination Physical exam (Primary Care) Vital Signs: Last Vital Signs Temp 97.1 F 03/27/25 08:56 Pulse 94 03/27/25 08:56 Resp 18 03/27/25 08:56 BP 116/68 03/27/25 08:56 Pulse Ox 97 03/27/25 08:56 Oxygen Delivery Method Room Air 03/27/25 08:56 BMI result Body Mass Index 25.9 Tobacco/Smoking Status: Tobacco use Status Tobacco use date assessed 03/27/25 03/27/25 09:02 Patient Tobacco Use Status Never used Tobacco 03/27/25 09:02 e-Cigarette/Vaping Use Never Used 03/27/25 09:02 PHQ-9: PHQ-9 Score PHQ-9: Total score 8 03/27/25 09:02 Depression Screening Interpretation: Positive Depression Screening Follow-up: Existing condition, In treatment and Follow-up Visit Requested Thrive Assessment: Date of Thrive Assessment Date Thrive assessed 09/26/24 03/27/25 09:02 Currently or been in a relationship where the following occur: No concerns reported HENAK Head: Yes normal to inspection, Yes normocephalic and Yes atraumatic Ears: external ears normal Eyes General: appearance normal, both eyes and all related structures Eyelids: Yes eyelids normal Conjunctivae: conjunctivae normal Neck Neck: Yes normal visual inspection and Yes supple Resp Effort & Inspection: normal respiratory effort Auscultation: clear to auscultation bilaterally Cardio Jugular venous distension: no JVD Rate: regular rate Rhythm: regular rhythm Heart sounds: S1 normal heart sound present and S2 normal heart sound present GI Inspection: Yes normal to inspection Palpation (GI): Soft to palpation and nontender Auscultation: normal bowel sounds Skin Other: right middle finger cyst in DIP Neuro General: no focal motor deficits Extrem General: Yes full ROM Psych Appearance: grossly normal Coding Level of Care Code Est Pt Level 3 (22584) Est Pt Prev Care 18-39y(30542) Diagnoses Physical exam Z00.00 Mild recurrent major depression F33.0 Hyperparathyroidism E21.3 Thyroid nodule E04.1 Lesion of finger L98.9 Additional Codes PHQ-9 - 24714 - PHQ-9 Billing: Yes ([id number]) NATA-7 Assessment Billing - NATA-7 Assessment Tool: NATA-7 Assessment 45607 ([id number]) Time Spent (min) 34 Assessment & Plan Assessment & Plan (1) Physical exam: Code(s): Z00.00 - Encounter for general adult medical examination without abnormal findings Category: Medical (2) Mild recurrent major depression: Code(s): F33.0 - Major depressive disorder, recurrent, mild Category: Medical (3) Hyperparathyroidism: Code(s): E21.3 - Hyperparathyroidism, unspecified Category: Medical (4) Thyroid nodule: Code(s): E04.1 - Nontoxic single thyroid nodule Category: Medical (5) Lesion of finger: Code(s): L98.9 - Disorder of the skin and subcutaneous tissue, unspecified Category: Medical Plan Plan Patient was informed and verbally consented to the use of an ambient scribe for clinic note documentation during this visit. 1. Encounter for general adult medical examination without abnormal findings Z00.00 Repeat in a year. 2. Depression, unspecified F32.A The patient experiences mild recurrent depression, with a PHQ-9 score of 8, and is currently managed with citalopram. 3. Nontoxic single thyroid nodule E04.1 A thyroid nodule measuring 3.7 cm on the left side was noted to be stable from the last examination. Referral to endocrinology is recommended for further evaluation and management. Orders: Orders Lipid Panel Today E78.5 - Hyperlipidemia, unspecified, Z00.00 - Encounter for general adult medical examination without abnormal findings Parathyroid Hormone Intact Today E21.3 - Hyperparathyroidism, unspecified Calcium, Ionized Today E21.3 - Hyperparathyroidism, unspecified Phosphorus Today E21.3 - Hyperparathyroidism, unspecified Thyroid Stimulating Hormone Today E04.1 - Nontoxic single thyroid nodule XR hand RT 2V Today L98.9 - Disorder of the skin and subcutaneous tissue, unspecified Comprehensive [place]. Panel Fast Today Z00.00 - Encounter for general adult medical examination without abnormal findings Vitamin D 25-OH Total Today E21.3 - Hyperparathyroidism, unspecified, E55.9 - Vitamin D deficiency, unspecified Calcium, Random Urine Today E21.3 - Hyperparathyroidism, unspecified Referrals Endocrinology Referral E04.1 - Nontoxic single thyroid nodule, E21.3 - Hyperparathyroidism, unspecified Orthopedics Referral L98.9 - Disorder of the skin and subcutaneous tissue, unspecified Medications: Discontinued atorvastatin Discontinued Reason: Patient Completed Course 20 mg PO BEDTIME 30 days 30 tabs 11RF E78.5 - Hyperlipidemia, unspecified
== END 2025-03-27 09:24 | disposition home or self-care (01) ==
LOC: HO.HMCH 08:52
PROVIDERS: PCP Internal Medicine; Visit Provider Internal Medicine
DX: Z00.00 Encounter for general adult medical examination without abnormal findings (principal); L98.9 Disorder of the skin and subcutaneous tissue, unspecified; F33.0 Major depressive disorder, recurrent, mild; E21.3 Hyperparathyroidism, unspecified; E04.1 Nontoxic single thyroid nodule

== ENCOUNTER → 2025-03-27 08:51 | Outpatient (BNVA) | payer BC, SELFPAY | PROVIDERS: PCP Internal Medicine; Visit Provider Internal Medicine | DX: Z00.00 Encounter for general adult medical examination without abnormal findings (principal); F33.0 Major depressive disorder, recurrent, mild; E21.3 Hyperparathyroidism, unspecified; E04.1 Nontoxic single thyroid nodule; L98.9 Disorder of the skin and subcutaneous tissue, unspecified; E28.319 Asymptomatic premature menopause; Z79.899 Other long term (current) drug therapy; Z13.31 Encounter for screening for depression; Z88.2 Allergy status to sulfonamides | CPT/HCPCS: 96127 ==

== ENCOUNTER 2025-05-08 12:15 | Outpatient (AMB) | payer BC, SELFPAY ==
--- NOTE | 2025-05-08 12:19 | MHC.OFFVIS ---
Vital Signs 05/08/25 12:20 Height 5 ft 3 in Weight 140 lb BMI 24.8 BP 110/69 Blood Pressure Location Lt brachial Position Sitting Pulse 96 Intake Visit Reasons: 1 year Fol up R/S from 09/26/24 R/S 12/19/24 per PT Intake Note: Patient yearly follow up for PATEL. Patient cc: bloody hemorrhoids on and off, denies any GI issues. 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 Accompanied by: Self / Same As Patient Allergies Sulfa (Sulfonamide Antibiotics) Allergy (Intermediate, Verified 05/08/25 12:18) rash HPI HPI 1 year Fol up R/S from 09/26/24 R/S 12/19/24 per PT: Details: 44 yr old f here for f/u for ASHER RECAP: seen for abn LFt which had normalized drinks wine rare occasions non smoker no FH of liver disease, no FH of CRC, IBD no blood transfusions LABS: AST 25, ALT 70, otherwise LFt nml, LDL 177, HDL 48 Hep C and B neg 2018 rept LABs with ALT mildly raised 34 Mary, SMA a1at and other serologies incl for Hep b,c neg LFT 02/2021--nml LFT 08/2021: bili 1.1 , ALT 56 LFT 06/05: nml LFT LFT 09/2022-- nml LFT LFT: AST/ALT elevation, mild 44/61 Other data: initial US with liver echogenicity, low risk of fibrosis, trace ascites ? colonsocopy was nml, apart from small internal hemorrhoids US 08/2021--- nml appearing liver, elastography high probability of being normal US 09/2022--- fatty liver, elastography median stiffness 1.42 INTERIM: she does admit to eating hamburgers, microwaves meals, but eats a lot of fruit and veg she also has some rectal bleeding at times stools are hard she can be pushing hard not taking any fiber or laxatives no abdo pain no alcohol EXAM: GENERAL: The patient is well developed and nontoxic. VITAL SIGNS:see workflow HEENT: Nonicteric sclerae, PERRLA, EOMI. Oropharynx clear. Moist mucous membranes. Conjunctivae appear well perfused. No thyroid mass. CHEST: Chest wall is nontender. HEART: Regular rate and rhythm without murmurs. LUNGS: Clear to auscultation bilaterally. ABDOMEN: Soft, positive bowel sounds, nontender, no organomegaly.no flank tenderness SKIN: No rash, no excessive bruising, petechiae, or purpura. NEUROLOGIC: Cranial nerves II-XII intact without motor/sensory deficit. psych: nml affect Assessment & Plan (1) Transaminitis- LFt nml on several occasions but up recently maybe due to diet, has MASH ? ? ? PLAN: 1/ rept LFT now and fibrosure 2. might need resmeterom or vit E--can start 400 untis daily 3/ advised on healthy living, diet, exercise, and avoiding greasy foods, fries as before 4/ advised on high fiebr diet for hemorrhoids and good fluid intake PFSH Medical History Encounter for well woman exam with routine gynecological exam Hypercalcemia Hyperkalemia Abnormal mammogram Hyperparathyroidism Mild major depression, single episode Disorder of bone and cartilage, unspecified Depression Chronic fatigue Mixed hyperlipidemia Multinodular thyroid Vitamin D deficiency Hyperlipidemia Transaminitis Premature ovarian failure Surgical History Hx of cervical polypectomy Hx of vaginal surgery Hx of colonoscopy Hx of biopsy Family History Father Arthritis of knee Hypothyroidism Atrial fibrillation Mother Diabetes Myocardial infarction Cardiovascular disease Maternal Grandmother Diabetes Maternal Uncle Diabetes Brother No problems noted. Brother No problems noted. Family/Other History of breast cancer Family/Other History of breast cancer Social History Household Members: Family Housing: House Are you a primary special needs child caregiver to a significant other at home: No Do you presently have visiting nurse or other home services: No Alcohol intake: former Patient Tobacco Use Status: Never used Tobacco e-Cigarette/Vaping Use: Never Used Second Hand Smoke Exposure: No service: No Current occupational status: employed Current occupational exposures/hazards: No Sexual orientation: Straight/Heterosexual Gender identity: Female Cognitive needs: No Hearing needs: No Vision needs: Yes Female Reproductive History Menstrual Age of Menarche: 9 Physical Exam Vital Signs: Last Vital Signs Pulse 96 05/08/25 12:20 BP 110/69 05/08/25 12:20 BMI result Body Mass Index 24.8 Assessment & Plan Assessment & Plan (1) Nonalcoholic steatohepatitis (PATEL): Code(s): K75.81 - Nonalcoholic steatohepatitis (PATEL) Category: Medical Plan: as above Orders: Orders Comprehensive Met. Panel Today K75.81 - Nonalcoholic steatohepatitis (PATEL) Vitamin E Today K75.81 - Nonalcoholic steatohepatitis (PATEL) US abdomen roman w elastography Today K74.69 - Other cirrhosis of liver, K75.81 - Nonalcoholic steatohepatitis (PATEL) Liver Fibrosis Pnl Today K75.81 - Nonalcoholic steatohepatitis (PATEL) Complete Blood Count Auto Diff Today K75.81 - Nonalcoholic steatohepatitis (PATEL) Prothrombin Time INR Today K75.81 - Nonalcoholic steatohepatitis (PATEL) Coding Level of Care Code Est Pt Level 3 (89007) Diagnoses Nonalcoholic steatohepatitis (PATEL) K75.81
[2025-05-08 12:20] VITALS: BP 110/69; PULSE 96; BMI 24.8
== END 2025-05-08 12:57 | disposition home or self-care (01) ==
LOC: HO.HGI 12:16
PROVIDERS: PCP Internal Medicine; Visit Provider Internal Medicine Gastroenterology
DX: K75.81 Nonalcoholic steatohepatitis (NASH) (principal)
CPT/HCPCS: 99213

== ENCOUNTER 2025-05-08 12:15 | Outpatient (REF) | payer BC, SELFPAY ==
[2025-05-08 13:21] LABS: MANUAL DIFF FLAG NO
[2025-05-08 14:32] LABS: Hematocrit 41.4 % (37.0-47.0); Hemoglobin 13.7 g/dl (12.0-16.0); Imm Gran Abs Auto 0.01 X10*3/uL (0.00-0.03); Imm Gran Pct Auto 0.1 % (0.0-0.4); Lymphocytes Absolute Auto 3.2 X10*3/uL (1.2-4.9); Mean Corpuscular HGB Conc 33.1 g/dl (31.0-35.0); Mean Corpuscular Hemoglobin 30.2 pg (27.0-33.0); Mean Corpuscular Volume 91.4 fL (80.0-98.0); NRBC Abs Auto 0.000 X10*3/uL (0.0-0.012); NRBC Pct Auto 0.0 /100WBC (0.0-0.2); Platelet Count 269 X10*3/uL (160-400); Red Blood Count 4.53 X10*6/uL (4.20-5.50); White Blood Count 7.7 X10*3/uL (4.8-10.8)
[2025-05-08 14:34] LABS: INTERNATIONAL NORM RATIO 1.0 (0.9-1.1); Prothrombin Time 12.3 SEC (11.2-13.5)
[2025-05-08 17:08] LABS: Alanine Aminotransferase 39 U/L (0-31); Albumin Level 4.9 g/dL (3.5-5.0); Anion Gap 14 (12-20); Aspartate Amino Transferase 29 U/L (5-31); Blood Urea Nitrogen 13 mg/dL (9-16); Calcium 9.7 mg/dL (8.4-10.2); Carbon Dioxide 26 mmol/L (22-29); Chloride 106 mmol/L (96-108); Estimated Glomerular Filt Rate > 60; Potassium 4.5 mmol/L (3.3-5.1); Sodium 141 mmol/L (135-145); Total Protein 7.8 g/dL (6.5-8.0)
[2025-05-08 17:48] LABS: Alkaline Phosphatase 82 U/L (39-117)
[2025-05-17 00:24] LABS: FIB-ALT 29 U/L (6-29); FIB-Alpha-2-Macroglobulin 144 mg/dL (106-279); FIB-Apolipoprotein A1 187 mg/dL (101-198); FIB-GGT 36 U/L (3-55); FIB-Haptoglobin 191 mg/dL (43-212); FIB-Total Bilirubin 0.7 mg/dL (0.2-1.2); Liver Fibrosis Score 0.07; Liver Fibrosis Stage F0; Nec Inflam Act Grade A0; Nec Inflam Act Score 0.10
== END 2025-05-08 12:16 | disposition home or self-care (01) ==
LOC: HO.LAB 12:15
PROVIDERS: PCP Internal Medicine; Visit Provider Internal Medicine Gastroenterology
DX: K75.81 Nonalcoholic steatohepatitis (NASH) (principal); K74.69 Other cirrhosis of liver
CPT/HCPCS: 36415; 80053; 81596; 84446; 85025; 85610

== ENCOUNTER 2025-05-26 10:14 | Outpatient (AMB) | payer BC, SELFPAY ==
--- NOTE | 2025-05-26 10:27 | A.OFFVIS_ITS ---
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 Per referring provider, patient has a subcutaneous cyst at the DIP. Today patient reports lump has been present for a while, however the past few months it has grown in size. At times lump becomes painful. Denies injury. 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 Concern of lump affecting her nail. Denies any traumatic injury. NO numbness or tingling. 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 Per referring provider, patient has a subcutaneous cyst at the DIP. Today patient reports lump has been present for a while, however the past few months it has grown in size. At times lump becomes painful. Denies injury. 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 Concern of lump affecting her nail. Denies any traumatic injury. NO numbness or tingling. No other acute complaints or concerns at this time [facility] Medical History Encounter for well woman exam with routine gynecological exam Hypercalcemia Hyperkalemia Abnormal mammogram Hyperparathyroidism Mild major depression, single episode Disorder of bone and cartilage, unspecified Depression Chronic fatigue Mixed hyperlipidemia Multinodular thyroid Vitamin D deficiency Hyperlipidemia Transaminitis Premature ovarian failure Surgical History Hx of cervical polypectomy Hx of vaginal surgery Hx of colonoscopy Hx of biopsy Family History Father Arthritis of knee Hypothyroidism Atrial fibrillation Mother Diabetes Myocardial infarction Cardiovascular disease Maternal Grandmother Diabetes Maternal Uncle Diabetes Brother No problems noted. Brother No problems noted. 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 Neuro: Normal sensation of the tips of all digits of the right hand at this time Vascular: Cap refill brisk Pain: No tenderness to palpation about cystic lesion on distal aspect of the dorsal right middle finger No pain with range of motion of the right hand ROM: Patient is able to make a closed fist and extend all digits of the right hand fully and without difficulty Skin: A proximally 3 cm x 1.5 cm fluctuant fluid-filled mass noted on the dorsal aspect of the right middle finger just below the eponychial fold No lacerations or abrasions. General: No ecchymosis, erythema, or evidence of infection. Psych: Appears grossly normal Affect normal Attitude cooperative Office Procedures AMB Ganglion Cyst Aspiration and/or injection of ganglion cyst(s) any location Procedure code (CPT) selection complete Assessment & Plan Assessment & Plan (1) Ganglion cyst of finger of right hand: Code(s): M67.441 - Ganglion, right hand Category: Medical Plan 1. Right middle finger distal phalanx ganglion cyst Patient is educated about this condition Patient is educated about the treatment options available Patient would like to proceed with aspiration At this time, approximately 0.25 cc of lidocaine is injected into the ganglion cyst, at which point an 18 gauge needle is advanced into the ganglion an aspiration was attempted through the needle, however upon [place] with needle, contents of ganglion cyst were drained around needle rather than through it, and approximately 1-2 cc of clear, very viscous fluid is drained in total. Patient is educated that she needs to wash the area with soap and water, otherwise keep it clean and dry for the next week or so Should keep dressing and gentle compression on the area until follow-up Patient understands this in his amenable to this plan Follow-up in 4-6 weeks for reassessment, sooner with any acute concerns Coding Level of Care Code New Pt Level 3 (78705) Diagnoses Ganglion cyst of finger of right hand M67.441 CPT Codes Ganglion Cyst Aspiration/injection - [id number]: [id number] Aspiration and/or injection of ganglion cyst(s) any location ([id number])
== END 2025-05-26 11:09 | disposition home or self-care (01) ==
LOC: HO.HOS 10:15
PROVIDERS: PCP Internal Medicine
DX: M67.441 Ganglion, right hand (principal)
CPT/HCPCS: 20612; 99203

== ENCOUNTER → 2025-05-26 10:14 | Outpatient (BNVA) | payer BC, SELFPAY | PROVIDERS: PCP Internal Medicine | DX: M67.441 Ganglion, right hand (principal) | CPT/HCPCS: 20612; J2003 ==